=== PATIENT | male | born 1960 | race Caucasian/White ===

== ENCOUNTER 2024-07-01 10:14 | Outpatient (CLI) | payer OTHER, SELFPAY ==
--- NOTE | ~2024-07-01 | US_ITS ---
EXAMINATION: US soft tissue head and neck DATE: 07/01/2024 10:49 INDICATION: Cervical lymphadenopathy. TECHNIQUE: Multiple grayscale and Doppler ultrasound images of the head and neck were obtained. COMPARISON: None FINDINGS: There is mild left internal jugular chain lymphadenopathy. The largest and measures 13 x 13 x 11 mm. IMPRESSION: 1. Mild left internal jugular chain lymphadenopathy, which may be reactive lymphadenopathy, metastati c squamous cell carcinoma, or lymphoma. Consider neck CT with contrast and/or ultrasound-guided core needle biopsy. Reviewed, dictated and finalized at location A. DING STONECUTTER IMPRESSION: 1. Mild left internal jugular chain lymphadenopathy, which may be reactive lymp hadenopathy, metastatic squamous cell carcinoma, or lymphoma. Consider neck CT with contrast and/or ultrasound-guided core needle biopsy.
== END 2024-07-01 10:15 | disposition home or self-care (01) ==
PROVIDERS: PCP Internal Medicine; Visit Provider Internal Medicine
DX: R59.0 Localized enlarged lymph nodes (principal)
CPT/HCPCS: 76536

== ENCOUNTER 2024-07-14 10:01 | Outpatient (CLI) | payer OTHER, SELFPAY ==
--- NOTE | ~2024-07-14 | CT_ITS ---
EXAMINATION: CT soft tissue neck w con DATE: 07/14/2024 10:33 INDICATION: Cervical lymphadenopathy. TECHNIQUE: Computed tomography (CT) of the neck was performed with 75 mL Omnipaque-350 intravenous co ntrast. Automated exposure control and iterative reconstruction technique were employed. The dose-tressa gth product was 574.90 mGy-cm. COMPARISON: Ultrasound 07/03/2024 FINDINGS: There is a 2.5 x 2.7 cm mass involving the left base of tongue. There is a 10 x 11 mm left mid internal jugular chain lymph node. There is a 10 x 13 mm high left internal jugular chain lymph n ode. There is 0% stenosis of the proximal internal carotid arteries relative to normal distal artery lumen diameters. There is moderate cervical spondylosis. IMPRESSION: 1. 2.5 cm mass involving the left base of tongue, consistent with squamous cell carcinoma. 2. Mild left internal jugular chain lymphadenopathy, consistent with metastatic disease. Ultrasound-g uided core needle biopsy of a left internal jugular chain lymph node is recommended. Reviewed, dictated and finalized at location A. MILL OPERATOR IMPRESSION: 1. 2.5 cm mass involving the left base of tongue, consistent with squamous cell carcinoma. 2. Mild left internal jugular chain lymphadenopathy, consistent with metastatic disease. Ultrasound-guided core needle biopsy of a left internal jugular chain lymph node is recommended.
[2024-07-14 10:29] LABS: Estimated Glomerular Filt Rate > 60
== END 2024-07-14 10:02 | disposition home or self-care (01) ==
PROVIDERS: PCP Internal Medicine; Visit Provider Internal Medicine
DX: R59.0 Localized enlarged lymph nodes (principal); K14.8 Other diseases of tongue
CPT/HCPCS: 70491; Q9967

== ENCOUNTER 2024-11-26 13:16 | Inpatient (IN) | payer MEDICARE, SELFPAY ==
[2024-11-26] VITALS (11 sets, daily range): BP systolic 117–133; BP diastolic 64–87; PULSE 43–78; RESP 15–24; TEMP 36.7–37.6; O2SAT 100; BMI 26.5
--- NOTE | ~2024-11-26 | XR_ITS ---
XR abdomen gastric tube insert Ordering provider: Lona Robertson MD History: . tube placement verification . Comparison: None. FINDINGS/impression: Feeding tube is seen with the tip in the second part of the duodenum. Reviewed, dictated and finalized at location A.
--- NOTE | ~2024-11-26 | XR_ITS ---
EXAMINATION: XR chest 2V Exam Date/Time: 11/26/2024 15:35 CDT HISTORY: difficulty swallowing, tongue CA Comparison: None. RESULT: Lines, tubes, and devices: None. Lungs and pleura: Lordotic positioning. No focal consolidation, pleural effusion, or pneumothorax. R ight hemidiaphragm elevation. Cardiomediastinal silhouette: Stable. Other: No acute osseous or upper abdominal finding. IMPRESSION: No acute cardiopulmonary process. Reviewed, dictated and finalized at location K.
--- NOTE | ~2024-11-26 | XR_ITS ---
MODIFIED ESOPHAGRAM HISTORY: Unable to swallow TECHNIQUE: Modified barium esophagram was performed on 11/28/2024. I administered fluoroscopy and perfo rmed the exam with speech pathologist. Patient was seated for lateral fluoroscopic imaging for inges tion of thin liquids, pudding, solids and quantified amounts, followed by thin liquids in uncontrolle d amounts. This was recorded on tape. A single fluoroscopic spot image was also recorded. The DAP for this procedure was 0.868 Gycm2. The amount of fluoroscopy time used during this procedure was 1.6 mi nutes. FINDINGS: Oral stage: Adequate function. Pharyngeal stage: There is laryngeal penetration without aspiration. Which was cleared following coug h/to clearing elicited with a verbal cue. Cervical/esophageal stage: Adequate function. IMPRESSION: Laryngeal penetration without aspiration. Please correlate with speech pathologist findi ngs and specific feeding recommendations. Reviewed, dictated and finalized at location A. IMPRESSION: Laryngeal penetration without aspiration. Please correlate with sp eech pathologist findings and specific feeding recommendations.
--- NOTE | ~2024-11-26 | CT_ITS ---
EXAMINATION: CT soft tissue neck w con DATE: 11/26/2024 15:25 INDICATION: Difficulty swallowing, history of tongue cancer TECHNIQUE: Computed tomography (CT) of the neck was performed with 75 mL Omnipaque-350 intravenous co ntrast. Automated exposure control and iterative reconstruction technique were employed. The dose-tressa gth product was 551.10 mGy-cm. COMPARISON: 07/14/2024 FINDINGS: Asymmetric soft tissue density at the left base of the tongue measuring up to 2.3 cm The thyroid gla nd is unremarkable. The submandibular and parotid glands are symmetric. There is no cervical lymp hadenopathy. The superior mediastinum is unremarkable. The airway is unremarkable. Parapharyngea l and pre-glottic fat planes are preserved. The left vertebral artery terminates in a cerebellar ar kathy, normal variant. The left vertebral artery is dominant. Otherwise unremarkable neck vessels. Th e orbits are unremarkable. Visualized sinuses and mastoid air cells are well aerated. Visualized lung parenchyma is clear. There is cervical spondylosis. The patient is edentulous. IMPRESSION: 2.3 cm soft tissue density mass at the left base of the tongue, decreased in size since prior examina tion. The previously described cervical lymphadenopathy is decreased/has resolved. Reviewed, dictated and finalized at location K. IMPRESSION: 2.3 cm soft tissue density mass at the left base of the tongue, decreased in si ze since prior examination. The previously described cervical lymphadenopathy is decreased/has resolved.
[2024-11-26 14:18] LABS: Basophils Percent Auto 0.3 % (0.2-1.2); Eosinophils Percent Auto 0.6 % (0-4.4); Hematocrit 33.5 % (42.0-52.0); Hemoglobin 11.5 g/dL (14.0-18.0); Immature Granulocyte Absolute 0.01 K/mm3 (0.00-0.031); Immature Granulocyte Percent A 0.3 % (0-0.5); Lymphocytes Absolute Auto 0.45 K/mm3 (0.9-3.2); Lymphocytes Percent Auto 12.5 % (18.3-44.2); Mean Corpuscular HGB Conc 34.3 g/dl (32-36); Mean Corpuscular Volume 90.3 fl (80-100); Mean Platelet Volume 9.1 fl (7.4-10.4); Monocytes Absolute Auto 0.4 K/mm3 (0.1-0.6); Monocytes Percent Auto 11.4 % (2.6-8.5); Neutrophils Absolute Auto 2.7 K/mm3 (1.3-6.7); Neutrophils Percent Auto 74.9 % (45.5-73.1); Platelet Count Result 138 k/mm3 (150-375); Red Blood Count 3.71 M/mm3 (4.6-6.20); Red Cell Distribution Width 13.9 % (11.5-14.5); White Blood Count 3.6 K/mm3 (4.5-10.0)
[2024-11-26 14:30] LABS: Alanine Aminotransferase 28 U/L (6-50); Albumin Level 4.2 g/dL (3.5-5.1); Alkaline Phosphatase 51 U/L (38-126); Anion Gap 11 mmol/L (4-12); Aspartate Amino Transferase 26 U/L (17-59); Bilirubin,Total 0.9 mg/dL (0.2-1.3); Blood Urea Nitrogen 29 mg/dL (9-20); Calcium 8.9 mg/dL (8.4-10.2); Carbon Dioxide 27 mmol/L (22-30); Chloride 101 mmol/L (98-107); Estimated CRCL calculation 56 ml/min; Estimated Glomerular Filt Rate 60; Glucose 123 mg/dL (65-110); Lactic Acid Reflex 1.6 mmol/L (0.7-2.0); Lipase 52 U/L (23-300); Potassium 3.2 mmol/L (3.4-5.0); Sodium 139 mmol/L (137-145)
[2024-11-26] MEDS: SODIUM CHLORIDE 0.9% IV 1,000 ML 999 ML IV CONT ×2 (14:49→15:57)
[2024-11-26] MEDS: KCL 20 MEQ/SW 100 ML 100 ML 50 MEQ IVPB (14:49)
[2024-11-26 14:55] LABS: Magnesium 1.7 mg/dL (1.6-2.3)
--- NOTE | 2024-11-26 15:10 | ED.NAVMDI ---
HPI - Nausea/Vomiting/Diarrhea General Chief complaint: Nausea/Vomiting/Diarrhea <CÉSAR Gerber Last Filed: 11/26/24 22:00> Stated complaint: oncologist wants pt admitted for IV fluids <CÉSAR Gerber Last Filed: 11/26/24 22:00> Time Seen by Provider: 11/26/24 13:59 <CÉSAR Gerber Last Filed: 11/26/24 22:00> Source: patient <CÉSAR Gerber Last Filed: 11/26/24 22:00> Mode of arrival: ambulatory <CÉSAR Gerber Last Filed: 11/26/24 22:00> Limitations: no limitations <CÉSAR Gerber Last Filed: 11/26/24 22:00> History of Present Illness HPI Narrative: Patient is a 64-year-old male who presents the ED with report of difficulty swallowing. Patient reports he is currently undergoing chemotherapy and radiation treatment for tongue cancer. Sees Dr. Royal. Reports over the last 1 week, patient has been having trouble keeping down food and drink, trouble keeping down his own secretions. Has been spitting up frequently. Feeling weak and dehydrated. Reports a burning sensation with swallowing. Is on pantoprazole, but denies improvement. Was sent here for IV fluids. Denies fevers, difficulty breathing or feeling SOB, nausea, abd pain, CP. <CÉSAR Gerber Last Filed: 11/26/24 22:00> Related Data Home medications: Home Medications ?Medication ?Instructions ?Recorded ?Confirmed ?Last Taken ?Type ondansetron 8 mg disintegrating 8 mg PO Q8H PRN nausea and vomiting 10/05/24 11/21/24 11/21/24 History tablet <CÉSAR Gerber Last Filed: 11/26/24 22:00> Allergies/Adverse reactions: Allergies Allergy/AdvReac Type Severity Reaction Status Date / Time No Known Allergies Allergy Verified 11/21/24 09:19 <CÉSAR Gerber Last Filed: 11/26/24 22:00> Review of Systems Review of Systems: All systems reviewed & are unremarkable except as noted in HPI. <Kendra Ochoa PA-C - Last Filed: 11/26/24 22:00> All systems reviewed & are unremarkable except as noted in HPI and below <Kendra Ochoa PA-C - Last Filed: 11/26/24 22:00> [facility] Past Medical History Medical History: Medical History (Updated 11/27/24 @ 15:29 by Lona Robertson MD) Oral mucositis Thrush, oral Malnutrition Odynophagia <Kendra Ochoa PA-C - Last Filed: 11/26/24 22:00> Surgical History Surgical History: Surgical History History of appendectomy <Kendra Ochoa PA-C - Last Filed: 11/26/24 22:00> Family History Family History: Family History Father Colon cancer Father Malignant neoplasm of prostate Father Hypertension <Kendra Ochoa PA-C - Last Filed: 11/26/24 22:00> Social History Social History: Social History Smoking status: Never smoker Second hand tobacco smoke exposure: No Alcohol intake: former Drinks per week: 4 Substance use: never Do You Feel Safe in your Home?: Yes Lack of Transportation: No Lack of Food: Never True Current Housing: I Have Housing Concerned About Future Housing: No Difficulty Paying Gas/Electric Bills: No Difficulty Paying for Meds: No Currently Unemployed: No Education: High School Diploma/GED Difficulty w/ Childcare or Family Care: No Spiritual care concerns: No <Kendra Ochoa PA-C - Last Filed: 11/26/24 22:00> Exam Narrative: GENERAL: Well appearing, thin, non-toxic, in no acute distress. HEAD: Normocephalic, atraumatic. ENT: Frequently spitting into emesis bag, dry MMs. There is mild posterior pharynx erythema with scant yellowish/white material surrounding oropharynx/soft palate. No tonsillar hypertrophy or exudate. Uvula midline and nonedematous. RESPIRATORY: Airway patent, respirations nonlabored. Clear to auscultation bilaterally, no rales, rhonchi, wheezing. No stridor. CARDIOVASCULAR: Regular rate and rhythm ABDOMINAL: Soft, nontender, nondistended. Normoactive BS. MUSCULOSKELETAL: Moves all extremities. No gross deformities. SKIN: Warm, dry, normal color. NEURO: A&O X3. Speech clear. Cranial nerves II-XII grossly intact. Steady gait. No ataxic movements. PSYCHIATRIC: Appropriate mood and affect. Normal interaction. <Kendra Ochoa PA-C - Last Filed: 11/26/24 22:00> Course FIELD SERVICE SUPERVISOR/PA Physician Supervision For this patient encounter, I reviewed the FIELD SERVICE SUPERVISOR or PA documentation, treatment plan, and medical decision making; and I had [id number] time with this patient. <Wyatt Antunez MD - Last Filed: 11/27/24 19:04> Vital Signs Vital signs: Vital Signs Temperature 98.1 F 11/26/24 13:23 Pulse Rate 78 11/26/24 13:23 Respiratory Rate 16 11/26/24 13:23 Blood Pressure 117/87 11/26/24 13:23 Pulse Oximetry 100 11/26/24 13:23 Temperature 97.2 F L 11/27/24 14:29 Pulse Rate 59 L 11/27/24 16:00 Respiratory Rate 16 11/27/24 14:29 Blood Pressure 121/73 11/27/24 14:29 Pulse Oximetry 99 11/27/24 14:29 Oxygen Delivery Room Air 11/27/24 08:00 <Kendra Ochoa PA-C - Last Filed: 11/26/24 22:00> Vital Signs Temperature 98.1 F 11/26/24 13:23 Pulse Rate 78 11/26/24 13:23 Respiratory Rate 16 11/26/24 13:23 Blood Pressure 117/87 11/26/24 13:23 Pulse Oximetry 100 11/26/24 13:23 Temperature 97.2 F L 11/27/24 14:29 Pulse Rate 59 L 11/27/24 16:00 Respiratory Rate 16 11/27/24 14:29 Blood Pressure 121/73 11/27/24 14:29 Pulse Oximetry 99 11/27/24 14:29 Oxygen Delivery Room Air 11/27/24 08:00 <Wyatt Antunez MD - Last Filed: 11/27/24 19:04> MDM - Nausea/Vomiting/Diarrhea MDM Narrative Medical decision making narrative: Patient presented to ED with difficulty swallowing, difficulty keeping down food and drink. History of tongue cancer on chemotherapy and radiation. Vital signs are stable upon arrival. Patient in no acute distress. No evidence of airway compromise or respiratory distress. Denying shortness of breath. Exam suspicious for oral for GI ill rash. Patient given nystatin physician follow-up, Pepcid. CBC with mild leukopenia at 3.6. Appears consistent with previous records. H&H is stable. Platelets stable. CMP with potassium of 3.2. IV replacement given. Mag within normal range. Slight LUIS. Creatinine today 1.22. Baseline around 0.9. Patient given fluids. Lactic acid within normal range at 1.6. Normal LFTs and lipase. UA consistent with dehydration. CT soft tissue neck sewing decreased size of tongue mass no signs of airway involvement. Chest x-ray is clear. No evidence of aspiration at this time. Patient given 2 L of fluid in the ED, feeling improved, but still having difficulty keeping down food and drink/secretions. Patient will be admitted for further evaluation. Discussed case with Dr. Call GI, will consult for possible scope. Discussed case with Brandy Montgomery FIELD SERVICE SUPERVISOR Hospitalist, accepted patient for admission. Patient and family in agreement with plan and need for admission. <Kendra Ochoa PA-C - Last Filed: 11/26/24 22:00> Medical Records Attestation: I reviewed the patient's medical records. <Kendra Ochoa PA-C - Last Filed: 11/26/24 22:00> Lab Data Attestation: I reviewed the patient's lab results. <Kendra Ochoa PA-C - Last Filed: 11/26/24 22:00> Result diagrams: 11/26/24 14:11 11/26/24 14:11 <Kendra Ochoa PA-C - Last Filed: 11/26/24 22:00> Labs: Lab Results 11/26/24 11/26/24 11/26/24 Range/Units 14:09 14:11 16:23 WBC 3.6 L (4.5-10.0) K/mm3 RBC 3.71 L (4.6-6.20) M/mm3 Hgb 11.5 L (14.0-18.0) g/dL Hct 33.5 L (42.0-52.0) % MCV 90.3 (80-100) fl MCH 31.0 (26-34) pg MCHC 34.3 (32-36) g/dl RDW 13.9 (11.5-14.5) % Plt Count 138 L (150-375) k/mm3 MPV 9.1 (7.4-10.4) fl Immature Gran % (Auto) 0.3 (0-0.5) % Neut % (Auto) 74.9 H (45.5-73.1) % Lymph % (Auto) 12.5 L (18.3-44.2) % Irwin % (Auto) 11.4 H (2.6-8.5) % Eos % (Auto) 0.6 (0-4.4) % Baso % (Auto) 0.3 (0.2-1.2) % Lymph # (Auto) 0.45 L (0.9-3.2) K/mm3 [place]win # (Auto) 0.4 (0.1-0.6) K/mm3 Eos # (Auto) 0.0 (0-0.3) K/mm3 Baso # (Auto) 0.0 (0.0-0.1) K/mm3 Abs Immat Gran (auto) 0.01 (0.00-0.031) K/mm3 Absolute Neuts (auto) 2.7 (1.3-6.7) K/mm3 Absolute Nucleated RBC 0.000 (0.0-0.012) K/mm3 Nucleated RBC % 0.0 (0.0-0.2) % Sodium 139 (137-145) mmol/L Potassium 3.2 L (3.4-5.0) mmol/L Chloride 101 (98-107) mmol/L Carbon Dioxide 27 (22-30) mmol/L Anion Gap 11 (4-12) mmol/L BUN 29 H D (9-20) mg/dL Creatinine 1.22 (0.7-1.3) mg/dL Estim Creat Clear Calc 56 ml/min Estimated GFR 60 (59 - ) Glucose 123 H (65-110) mg/dL Lactic Acid 1.6 (0.7-2.0) mmol/L Calcium 8.9 (8.4-10.2) mg/dL Magnesium 1.7 (1.6-2.3) mg/dL Total Bilirubin 0.9 (0.2-1.3) mg/dL AST 26 (17-59) U/L ALT 28 (6-50) U/L Alkaline Phosphatase 51 (38-126) U/L Total Protein 7.0 (6.3-8.2) g/dL Albumin 4.2 (3.5-5.1) g/dL Lipase 52 (23-300) U/L Urine Color Yellow (Yellow) Urine Appearance Clear (Clear) Urine pH 7.5 (5.0-9.0) Ur Specific [place] > 1.045 H (1.001-1.035) Urine Protein 2+ H (Negative) mg/dL Urine Glucose (UA) Negative (Negative) mg/dL Urine Ketones 1+ H (Negative) mg/dL Ur Blood (Man) Negative (Negative) Urine Nitrate Negative (Negative) Urine Bilirubin Negative (Negative) Urine Urobilinogen 1.0 (<2.0) mg/dL Leukocyte Esterase Rfl Negative (Negative) SATNAM/UL Urine RBC 0-2 (0-2) /hpf Urine WBC 0-5 (0-3) /hpf Ur Squamous Epith Cells None seen (Few) /hpf Urine Bacteria None seen /hpf Urine Casts 0-2 <Kendra Ochoa PA-C - Last Filed: 11/26/24 22:00> Lab Results 11/26/24 11/26/24 11/26/24 Range/Units 14:09 14:11 16:23 WBC 3.6 L (4.5-10.0) K/mm3 RBC 3.71 L (4.6-6.20) M/mm3 Hgb 11.5 L (14.0-18.0) g/dL Hct 33.5 L (42.0-52.0) % MCV 90.3 (80-100) fl MCH 31.0 (26-34) pg MCHC 34.3 (32-36) g/dl RDW 13.9 (11.5-14.5) % Plt Count 138 L (150-375) k/mm3 MPV 9.1 (7.4-10.4) fl Immature Gran % (Auto) 0.3 (0-0.5) % Neut % (Auto) 74.9 H (45.5-73.1) % Lymph % (Auto) 12.5 L (18.3-44.2) % Irwin % (Auto) 11.4 H (2.6-8.5) % Eos % (Auto) 0.6 (0-4.4) % Baso % (Auto) 0.3 (0.2-1.2) % Lymph # (Auto) 0.45 L (0.9-3.2) K/mm3 [place]win # (Auto) 0.4 (0.1-0.6) K/mm3 Eos # (Auto) 0.0 (0-0.3) K/mm3 Baso # (Auto) 0.0 (0.0-0.1) K/mm3 Abs Immat Gran (auto) 0.01 (0.00-0.031) K/mm3 Absolute Neuts (auto) 2.7 (1.3-6.7) K/mm3 Absolute Nucleated RBC 0.000 (0.0-0.012) K/mm3 Nucleated RBC % 0.0 (0.0-0.2) % Sodium 139 (137-145) mmol/L Potassium 3.2 L (3.4-5.0) mmol/L Chloride 101 (98-107) mmol/L Carbon Dioxide 27 (22-30) mmol/L Anion Gap 11 (4-12) mmol/L BUN 29 H D (9-20) mg/dL Creatinine 1.22 (0.7-1.3) mg/dL Estim Creat Clear Calc 56 ml/min Estimated GFR 60 (59 - ) Glucose 123 H (65-110) mg/dL Lactic Acid 1.6 (0.7-2.0) mmol/L Calcium 8.9 (8.4-10.2) mg/dL Magnesium 1.7 (1.6-2.3) mg/dL Total Bilirubin 0.9 (0.2-1.3) mg/dL AST 26 (17-59) U/L ALT 28 (6-50) U/L Alkaline Phosphatase 51 (38-126) U/L Total Protein 7.0 (6.3-8.2) g/dL Albumin 4.2 (3.5-5.1) g/dL Lipase 52 (23-300) U/L Urine Color Yellow (Yellow) Urine Appearance Clear (Clear) Urine pH 7.5 (5.0-9.0) Ur Specific [place] > 1.045 H (1.001-1.035) Urine Protein 2+ H (Negative) mg/dL Urine Glucose (UA) Negative (Negative) mg/dL Urine Ketones 1+ H (Negative) mg/dL Ur Blood (Man) Negative (Negative) Urine Nitrate Negative (Negative) Urine Bilirubin Negative (Negative) Urine Urobilinogen 1.0 (<2.0) mg/dL Leukocyte Esterase Rfl Negative (Negative) SATNAM/UL Urine RBC 0-2 (0-2) /hpf Urine WBC 0-5 (0-3) /hpf Ur Squamous Epith Cells None seen (Few) /hpf Urine Bacteria None seen /hpf Urine Casts 0-2 <Wyatt Antunez MD - Last Filed: 11/27/24 19:04> Imaging Data Attestation: I personally reviewed and interpreted this imaging study as follows: <Kendra Ochoa PA-C - Last Filed: 11/26/24 22:00> Radiologist's impression: ITS Impressions Soft Tissue Neck CT 11/26/24 15:42 IMPRESSION: 2.3 cm soft tissue density mass at the left base of the tongue, decreased in size since prior examination. The previously described cervical lymphadenopathy is decreased/has resolved. Chest X-Ray 11/26/24 15:58 IMPRESSION: No acute cardiopulmonary process. <Kendra Ochoa PA-C - Last Filed: 11/26/24 22:00> Discharge Plan Discharge Clinical Impression: Tongue malignant neoplasm, Dehydration, Esophageal thrush Difficulty swallowing Qualifiers: Dysphagia type: unspecified Qualified Code(s): R13.10 - Dysphagia, unspecified <Kendra Ochoa PA-C - Last Filed: 11/26/24 22:00> Patient Disposition: Still a Patient <Kendra Ochoa PA-C - Last Filed: 11/26/24 22:00> Condition: Stable <Kendra Ochoa PA-C - Last Filed: 11/26/24 22:00>
[2024-11-26] MEDS: FAMOTIDINE 20 MG/2 ML VIAL IV PUSH ×2 (15:59→20:46)
[2024-11-26] MEDS: NYSTATIN 100,000 UNITS/ML SUSP 5 ML ORAL.SUSP PO ×2 (16:08→20:46)
[2024-11-26 16:34] LABS: Add Urine Microscopic? YES; Appearance Urine Clear (Clear); Bacteria Urine None Seen /hpf; Bilirubin Urine Negative (Negative); Blood Urine Negative (Negative); Color Urine Yellow (Yellow); Glucose Urine UA Negative (Negative); Ketones Urine 1+ mg/dL (Negative); Leukocyte Esterase Ur Negative LEU/UL (Negative); Nitrate Urine Negative (Negative); Non Pathogenic Casts 0-2; Protein Urine 2+ mg/dL (Negative); RBC Urine 0-2 /hpf (0-2); Specific Grav Ur > 1.045 (1.001-1.035); Squamous Epithelial Cell Urine None Seen /hpf (Few); WBC Urine 0-5 /hpf (0-3); pH Urine 7.5 (5.0-9.0)
--- OUTSIDE RECORDS SUMMARY | 2024-11-26 16:34 | XMS_ITS | Encounter Summary ---
Author Organization [facility] Address [address] [place] [address] Care Team Providers Care Wheel Polisher Name Role Phone Gogo Ivey MD Primary Care Provider Encounter Details Date Type Department Care Team (Late Contact Info) Description 11/22/2024 Orders Only [facility] Oncology and Hematology - Mervin Tasha [address] [place] [address] Flex Royal MD [address] [place] [address] [facility] [address] [place] [id number] Social History Tobacco Use Types Packs/Day Years Used Date Smoking Tobacco: Never Smokeless Tobacco: Never Alcohol Use Standard Drinks/Week Comments Yes 0 (1 standard drink = 0.6 oz pur e alcohol) Occasionally Sex and Gender Information Value Date Recorded Sex Assigned at Not on file Legal Sex Male 9:35 AM INSURANCE OPERATIONS REP Gender Identity Not on file Sexual Orientation Not on file documented as of this encounter Plan of Treatment Upcoming Encounters Date Type Department Care Team (Late st Contact Info) Description 11/28/2024 Orders Only [facility] Oncology and Hematology - Mervin Kenney [address] [place] [address] [place] [address] [place] [address] [facility] [address] [place] [address] Tongue cancer (CMS/HCC) 01/12/2025 10:00 AM CDT Office Visit [facility] Oncology and Hematology - Mervin Kenney [address] [place] [address] Flex Royal MD [address] [facility] [address] [place] [address] documented as of this encounter Procedures Procedure Name Priority Date/Time Associated Diagnosis Comments CBC MIXED CELL DIFFERENTIAL Routine 11/21/2024 11:17 AM CDT documented in this encounter Results * CBC MIXED CELL DIFFERENTIAL (11/21/2024 11:17 AM CDT) Blood us Flex Royal MD HEMATOLOGY ORDERABLES Final Res ult documented in this encounter Visit Diagnoses Not on filedocumented in this encounter Care Teams Wheel Polisher Relationship Specialty Start Date End Date Gogo Ivey MD [address] [place] [id number] PCP - General Internal Medicine 08/24/24 documented as of this encounter
--- OUTSIDE RECORDS SUMMARY | 2024-11-26 16:34 | XMS_ITS | CONTINUITY OF CARE DOCUMENT ---
Author Name bettina dunbar Address Unknown Organization [facility] Address [address] [facility] [address] [place] [address] Phone [phone] Care Team Providers Care Hand Suture Winder Name Role Phone Pankaj Bravo MD Unavailable PHYLLIS HILLMAN MD Unavailable [phone] PHYLLIS HILLMAN MD Unavailable [phone] INSURANCE PROVIDERS Payer name Policy type / Coverage type [place] red democrat ID [facility] [employer] insurance [place] 8 [id number]
--- OUTSIDE RECORDS SUMMARY | 2024-11-26 16:34 | XMS_ITS | Data Portability ---
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 Name Role Phone GOGO IVEY Primary Care Provider Assessment Encounter Date Assessment Date Assessment LastModified by Organization Details LastModified Time 06/28/2024 06/28/2024 06/29/2024: VIT D 16 PSA 0.73 Gluc 102, TP 5.6, Glob 1.7 LDL 112 Not available 07/15/2024 18:40:24 11/02/2024 11/02/2024 06/29/2024: VIT D 16 PSA 0.73 Gluc 102, TP 5.6, Glob 1.7 LDL 112 Not available 11/02/2024 11:34:04 Plan of Treatment Reminders Order Date Submit Date Provider Last Modified By Organization Details Last Modified Time Details Appointments Follow Up 15 2024 10:15A Ferny garcias MD Not available Not available Not available Lab lipid panel, serum [email or web address] [place] [address] (Lab), [address] [place], [address], 11/10/2024 09:10:55 CBC w/ auto diff [email or web address] (Lab), [address] [place], [address], 11/10/2024 09:11:07 CMP, serum or plasma [email or web address] (Lab), [address] [place], [address], 11/10/2024 09:11:24 TSH, serum or plasma [address] (Lab), [address] [place], [address], 11/10/2024 09:11:35 PSA, total, serum or plasma [address] (Lab), [address] [place], [address], 11/10/2024 09:11:53 vitamin D, 25-hydrox y, total, serum [address] (Lab), [address] [place], [address], 11/10/2024 09:11:43 PSA, total, serum or plasma 2023 024 [facility] (Lab), [address] [place], [address], 06/30/2024 11:31:50 lipid panel, serum 2023 024 [facility] (Lab), [address] [place], [address], 06/30/2024 11:31:49 CBC w/ auto diff 2023 024 [facility] (Lab), [address] [place], [address], 06/30/2024 11:31:50 CMP, serum or plasma 2023 024 [facility] (Lab), [address] [place], [address], 06/30/2024 11:31:49 TSH, serum or plasma 2023 024 [facility] (Lab), [address] [place], [address], 06/30/2024 11:31:50 vitamin D, 25-hydrox y, total, serum 2023 024 [facility] (Lab), [address] [place], [address], 06/30/2024 11:31:51 Referral dermatolo gist referral - Please call patient to schedule an appointme nt. Thank you. 2024 025 [facility], [address] [place], [address], 11/07/2024 09:40:25 otolaryng ologist referral - Please call patient to schedule. 2023 024 ELIZABETH Kay MD, [address], [place], [address], 07/18/2024 16:45:21 oncologis t referral - Please call patient to schedule. 2023 025 JONA Royal MD, [address], [place], [address], 08/24/2024 18:36:02 dermatolo gist referral - Please call patient to schedule. 2023 024 [facility], [address] [place], [address], 08/18/2024 12:15:00 Procedures colonosco py screening (PROC) - Please call patient to schedule an appointme nt. Thank you. 2024 025 ELIZABETH Walsh MD, [address], [address], [place], [address], 11/09/2024 09:25:15 colonosco py screening (PROC) - Please call patient to schedule. 2023 024 [email or web address] Yohannes Walsh MD, [address] [facility] [address], [place], [address], 08/18/2024 12:04:24 Surgeries None recorded. Imaging US, neck, soft tissue - Please call patient to schedule. 2023 024 [facility], [address], [place], [address], 07/01/2024 18:27:28 Medication Orders pantopraz ole 40 mg tablet,de layed release 2024 025 [email or web address] [facility], [address] [place], [address], 11/02/2024 12:58:42 Patient TargetsNo targets recorded. Patient Instructions Encounter Date Encounter Id Patient Instructions Last Modified By Organization Details Last Modified Time 08/04/2024 [id number] to get things going he will undergo laryngoscopy and biopsy with a PET scan at [facility]. 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 Referring Physician: Gogo Ivey Internal Medicine, Encounter Date: 06/28/2024 [employer] Referral fo r Mass of tongue Please call patient to schedule. Referring Physician: Gogo Ivey Internal Medicine, Encounter Date: 06/28/2024 Please call patient to sched ule. Referring Physician: Gogo Ievy Internal Medicine, Encounter Date: 06/28/2024 Environmental Field Services Technician Referral for S kin lesion Please call patient to schedule an appointment. Thank you. Referring Physician: Gogo Ivey Internal Medicine, Encounter Date: 11/02/2024 Results Created Date Observation Date Name Description Value Unit Range Abnormal Flag Note LastModifiedBy Organization Detail LastModifiedTime 08/15/19 25 08/19/2024 PATHO LOGY SERVI CE pathserv SEE COMMEN T See separ ate patho logy repor t. Not Available [facility] [address], [place], [address], 08/19/2024 12:30:09 07/01/20 24 07/01/2024 US, neck, soft tissu e No observ ation record ed. [address], [place], [address], 07/01/2024 18:27:28 07/14/20 24 07/14/2024 CT, neck, soft tissu e, w/ contr ast No observ ation record ed. [address], [place], [address], 07/14/2024 17:31:46 08/29/19 25 08/29/2024 PET-C T, whole body scan No observ ation record ed. [email or web address] [facility] [address] [place] [address], [address], 08/29/2024 16:28:37 09/09/19 25 09/09/2024 PET-C T, whole body scan No observ ation record ed. [facility] Nuclear Medicine [facility] [address] [place], [address], 09/09/2024 11:57:46 Result Notes None recorded. Problems Name Problem SNOMED Code Status Onset Date Resolution Date Notes Provider Name and Address Organization Details Recorded Time Vitamin D deficiency 77969892 Active 2023 Gogo garcias MD [address], [address], [place], [address], [facility] [employer] 14:13:49 Cervical lymphadenopath y 092056264 Active 2023 Gogo garcias MD [address], [address], [place], [address], [facility] 4 15:22:38 Hyperlipidemia 74816654 Active 2023 Jayleen BautistaJOSE F null, [facility] 4 12:36:51 Neck pain 79574821 Active 2023 Jayleen Bautista CMA null, [facility] 4 16:00:17 Mass of tongue 761849195 Active 2023 Gogo garcias MD [address], [address], [place], [address], [facility] 4 18:35:52 Skin lesion 41351064 Active 2023 Gogo garcias MD [address], [address], [place], [address], 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 Procedures Surgical History Date Name Laterality Status Provider Name and Address Organization Details Recorded Time Appendectomy completed JERE Oh [facility] 06/28/2024 14:34:54 Laryngoscopy with biopsy completed Kendra Lackey RN [facility] 08/22/2024 08:49:39 Imaging Results Imaging Date Name Status LastModified by [facility] Details LastModified Time 07/01/2024 US, neck, soft tissue active [facility] [address], [place], [address], 07/01/2024 18:27:28 07/14/2024 CT, neck, soft tissue, w/ contrast active [facility] [address], [place], [address], 07/14/2024 17:31:46 08/29/2024 PET-CT, whole body scan completed [email or web address] [facility] [address] [place], [address], 08/29/2024 16:28:37 09/09/2024 PET-CT, whole body scan completed [facility] Nuclear Medicine [facility] [address] [place], [address], 09/09/2024 11:57:46 Procedure Notes None recorded. Medical Equipment None Reported. Allergies No known drug allergies Medications Name Sig Start Date Stop Date Status Note LastModified by Organization Details LastModified Time hydrocodo ne 5 mg-acetam inophen 325 mg tablet TAKE 1 TABLET BY MOUTH EVERY 4 HOURS NEEDED FOR MODERATE PAIN. MAX DAILY AMOUNT: 6 TABLETS active Not Available Not Available No t Available acetamino phen 300 mg-codein e 30 mg tablet TAKE 1 TAB BY MOUTH EVERY 6 HOURS. NO DRIVING ON THIS MED. NOT W/ADDITI ONAL TYLENOL. IBUPROFE N OKAY. active Not Available Not Available No t Available ondansetr on 8 mg disintegr ating tablet DISSOLVE 1 TABLET ON TOP OF TONGUE THEN SWALLOW EVERY 8 HOURS NEEDED FOR NAUSEA OR VOMITING active Not Available Not Available No t Available pantopraz ole 40 mg tablet,de layed release TAKE 1 TABLET BY MOUTH EVERY DAY NEEDED FOR 90 DAYS active Not Available Not Available No t Available lidocaine HCl 2 % mucosal solution 5 ML BY MOUTH/TH ROAT ROUTE EVERY 4 HOURS NEEDED FOR PAIN. active Not Available Not Available No t Available rosuvasta tin 40 mg tablet TAKE 1 TABLET BY MOUTH EVERY DAY 11/02 completed not taking right now due to treatmen t Not Available Not Available Not Available cholecalc iferol (vitamin D3) 1,250 mcg (50,000 unit) capsule TAKE 1 CAPSULE BY MOUTH ONE TIME PER WEEK 11/02 completed Not Available Not Available Not Available Vitals Date Recorded Body weight Body mass index (BMI) Body height Body temperature Heart rate Systolic blood pressure Diastolic blood pressure Provider Name and Address Organization Details Last Updated DateTime 83464.2 1 g 29.8 kg/m2 177.8 cm 98.1 [degF] 78 /min 110 mm[Hg] 70 mm[Hg] JERE Oh [facility] [employer] 4 14:37:02 Date Recorded Body height Body mass index (BMI) Body weight Body temperature Provider Name and Address Organization Details Last Updated DateTime 08/04/2024 177.8 cm 29.8 kg/m2 75122.78 g 97.6 [degF] Kendra Lackey RN [facility] [employer] [facility] 08/04/2024 14:07:39 Date Recorded Body height Body mass index (BMI) Body weight Body temperature Provider Name and Address Organization Details Last Updated DateTime 08/22/2024 177.8 cm 29.4 kg/m2 17512.44 g 97.9 [degF] Kendra Lackey RN [facility] [employer] [facility] 08/22/2024 10:43:07 Date Recorded Body height Body mass index (BMI) Body weight Body temperature Heart rate Systolic blood pressure Diastolic blood pressure Provider Name and Address Organization Details Last Updated DateTime 177.8 cm 28 kg/m2 09569.5 1 g 97.1 [degF] 72 /min 114 mm[Hg] 80 mm[Hg] JERE Oh [facility] [employer] [facility] 11:21:47 Social History Question Answer Notes LastModified by Organizat ion Details LastModified Time Tobacco Smoking Status [facility] [employer] [facility] 06/28/2024 14:33:04 Do You Have An Advance Directive? No Information n ot available 06/28/2024 What Is Your Level Of Alcohol Consumption? Occasional Information not available 06/28/2024 What Is Your Level Of Caffeine Consumption? Heavy Information not available 06/28/2024 In The 14 Days Before Symptom Onset, Have You Had Close Contact With A Laboratory-confirm ed COVID-19 While That Case Was Ill? No Information n ot available 06/28/2024 In The 14 Days Before Symptom Onset, Have You Had Close Contact With A Person Who Is Under Investigation For COVID-19 While That Person Was Ill? No Information not available 06/28/2024 Are You Currently Employed? Yes Information not available 06/28/2024 What Type Of Diet Are You Following? REGULAR Information n ot available 06/28/2024 What Is The Highest Grade Or Level Of School You Have Completed Or The Highest Degree You Have Received? 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 Unknown Information not available 06/28/2024 Are There Any Guns Present In Your Home? Yes Information not available 06/28/2024 Where Do You Live? [place]iler Inform ation not available 06/28/2024 Do You Have A Medical Power Of Senior Credit Analyst? No Information not available 06/28/2024 What Was The Date Of Your Most Recent Tobacco Screening? 11/02/2024 Information not available 11/02/2024 Do You Have Any Pets? Yes Information not available 06/28/2024 What Is Your Relationship Status? Information not available 06/28/2024 Do You Use Your Seat Belt Or Car Seat Routinely? Yes Information not available 06/28/2024 Do You Have Smoke And Carbon Monoxide Detectors In Your Home? Yes Information not available 06/28/2024 Are You Passively Exposed To Smoke? No Information no t available 06/28/2024 Are There Any Smokers In Your House? No Information not available 06/28/2024 Do You Feel Stressed (tense, Restless, Nervous, Or Anxious, Or Unable To Sleep At Night)? [id number] Information not available 06/28/2024 Do You Use Any Illicit Or Recreational Drugs? No Information not available 06/28/2024 Has Tobacco Cessation Counseling Been Provided? No N/a Information not available 06/28/2024 Have You Recently Traveled Abroad? No Information not available 06/28/2024 Do You Or Have You Ever Used Any Other Forms Of Tobacco Or Nicotine? No Information not available 06/28/2024 Sex: Unknown Functional Status Question Answer Note LastModified by Organizat ion Details LastModified Time What is your exercise level? Occasional stays active Information not available 06/28/2024 Mental Status None recorded. Family History Relationship Description Onset Age of this Age Resolved Age Notes LastModified by Organization Details LastModified Time Father Malignant tumor of colon with METS to prosta te Not available 06/28/2024 14:30:57 Paternal Grandfather Myocardial infarction Not available 06/28 14:31:14 Paternal Grandmother Myocardial infarction Not available 06/28 14:31:14 Notes:NO ENT Medical History Condition Response CANCER: SPECIFY Y CHEMOTHERAPY / RADIATION Y Immunizations Vaccine Type Date Status Note Provider Nam e and Address Organization Details Recorded Time zoster recombinant 07/17/2024 completed JERE Oh, [employer] 07/28/2024 16:07:28 zoster recombinant 09/20/2024 JERE Everett, [employer] 11/02/2024 11:18:36 Influenza, split virus, trivalent, PF 06/28/2024 completed Gogo Ivey MD [address], [address], [place], [address], [facility] [employer] 07/15/2024 18:38:30 Past Encounters Encounter ID Performer Location Encounter Start Date Encounter Closed Date Diagnosis/Indication Diagnosis SNOMED-CT Code Diagnosis ICD10 Code Diagnosis Note [id number] Gogo forte MD [facility] Internal Med [address] [place] [address] 06/28/2024 14:03:05 06/28/2024 15:30:34 Screening - NAD 376792467 Z13.9 C-scope; Get this if not done Get yearly flu shot, get tdap if not doneCan do Shingrix vaccineCan do COVID 19 boostersCa n do RSV vaccine RTC in 3 months, do labs, ER if worse, he did verbalize his understand ing of the above Screening for malignant neoplasm of colon 951182709 Z12.11 Hyperlipid emia screening 354970191 Z13.220 Addendum 07/15/2024 :Get on statin, case sent Vitamin D deficiency 347 94978 E55.9 Addendum 07/15/2024 :Get on vit d weekly and repeat the vit d, case sent Screening for malignant neoplasm of prostate 411439266 Z12.5 Skin lesion 29568615 L98 .9 Cervical lymphadenopathy 032508883 R59.0 Addendum: 07/15/2024 :US neck 07/01/2024 CT neck 07/14/2024 : Mass notedCase sent, needs to see oncologist IMANI Administra tion of influenza vaccine 47018287 Z23 Mass of tongue 156907491 R22.0 Addendum: 07/15/2024 :See CT neck 07/14/2024 , needs to see ENT and oncology [id number] Kyle Kay MD [facility] ENT [place] [address] [place] [address] 08/04/2024 13:50:33 08/09/2024 13:55:37 Primary malignant neoplasm of base of tongue 98513792 C01 [id number] Kyle Kay MD [facility] E[facility] [place] [address] [place] [address] 08/22/2024 10:06:08 08/23/2024 10:53:37 Primary malignant neoplasm of base of tongue 31576092 C01 [id number] Gogo forte MD [facility] Primary Care Nancy cai [address] [facility] [address] [address] [place] [address] 11/02/2024 11:06:55 11/02/2024 12:16:40 Screening - NAD 496975583 Z13.9 C-scope; Get this if not done Get yearly flu shot, get tdap if not doneCan do Shingrix vaccineCan do COVID 19 boostersCa n do RSV vaccine RTC in 3 months, do labs, ER if worse, he did verbalize his understand ing of the above Screening for malignant neoplasm of colon 573058773 Z12.11 Hyperlipid emia screening 964778343 Z13.220 Addendum 07/15/2024 :Get on statin, case sent, but today 11/02/2024 not taking Vitamin D deficiency 347 29088 E55.9 Addendum 07/15/2024 :Get on vit d weekly and repeat the vit d, case sent Screening for malignant neoplasm of prostate 559100242 Z12.5 Skin lesion 78358868 L98 .9 Mass of tongue 121986408 R22.[address] neck 07/14/2024 , needs to see ENT and oncology 08/19/2024 : Bx Invasive squamous cell carcinoma Dr Mike ET CT 09/09/2024 Dr Royal 09/09/2024 , to get chemoradia tionDr Genny 10/27/2024 Gastroesop hageal reflux disease without esophagitis 902970075 K21.9 Has noted acid reflux symptoms since starting his chemo and radiationS tart on pantoprazo le as needed Health Concerns Section Related Observation LastModified by Organization Detai ls LastModified Time None Recorded Concern Status LastModified by Organization Details LastModified Time None Recorded Advance Directives Directive N: Payers Encounter Date Sequence Insurance Name Policy Number Policy Sinclair Covered Member ID Sinclair Member ID Guarantor Name 06/28/2024 1 [employer] [id number] Marco Green [id number] Marco Green 08/04/2024 1 [employer] [id number] Marco Green [id number] Marco Green 08/22/2024 1 [employer] [id number] Marco Green [id number] Marco Green 11/02/2024 1 [employer] [id number] Marco Green [id number] Marco Green Notes Date Note Type Note Provider Name and Address Organization Details Recorded Time 06/28/2024 text/html OV 06/28/2024:He re to establish care Present Hx:C/o lymph nodes in neck, and to get labs MD Mel Edwards [address], [place], [address], [facility] 07/15/2024 18:54:50 08/04/2024 text/html this patient developed left neck pain for months ago which now radiates to his throat and ear. He is a never smoker and has no family history of cancer. He did have an ultrasound which demonstrated lymphadenopathy followed by a CT scan which demonstrated a 2.5 cm left tongue base lesion with adenopathy. Kyle Kay MD [address], [place], [address], [employer] 08/04/2024 14:42:32 08/22/2024 text/html The pathology report indicated invasive squamous cell carcinoma as expected. We will schedule his PET-CT through [facility] and he has an appointment to see a medical oncologist at [facility] this week. Kyle Kay MD [address], [place], [address], [facility] 08/22/2024 11:00:42 11/02/2024 text/html OV 06/28/2024:He re to establish care Present Hx:C/o lymph nodes in neck, and to get labs OV 11/02/2024: Here for his f/u apt, he did do the labs, here with his , wants to discuss his GERD like symptoms and get a medication for this Gogo Ivey MD [address], [place], [address], [employer] [facility] 11/02/2024 13:02:37
--- OUTSIDE RECORDS SUMMARY | 2024-11-26 16:34 | XMS_ITS | Clinical Summary ---
Author Organization [facility] Address [address] [place] [address] Care Team Providers Care Bait Digger Name Role Phone Kiana Ivey MD Primary Care Provide r Allergies No known active allergies Encounters Date Type Department Care Team Description 08/29/2024 6:37 AM DIETARY WORKER - 08/29/2024 11:59 PM DIETARY WORKER Hospital Encounter [facility]) [address] [place] [address] Discharge Disposition: Discharge to home or self care 08/29/2024 6:37 AM DIETARY WORKER - 08/29/2024 11:59 PM DIETARY WORKER Hospital Encounter [facility] ([facility]) [address] [place] [address] Cancer of base of tongue (HCC) Discharge Disposition: Discharge to home or self care from Last 3 Months Social History Tobacco Use Types Packs/Day Years Used Date Smoking Tobacco: Never Assessed Sex and Gender Information Value Date Recorded Sex Assigned at Not on file Legal Sex Male 10:15 AM DIETARY WORKER Gender Identity Not on file Sexual Orientation Not on file Last Filed Vital Signs Vital Sign Reading Time Taken Comments Blood Pressure - - Pulse - - Temperature - - Respiratory Rate - - Oxygen Saturation - - Inhaled Oxygen Concentration - - Weight 93.7 kg (206 lb 9.6 oz) 08/29/2024 7:22 A M DIETARY WORKER Height 177.8 cm (5' 10 ) 08/29/2024 7:22 AM DIETARY WORKER Body Mass Index 29.64 08/29/2024 7:22 AM DIETARY WORKER Plan of Treatment Health Maintenance Due Date Last Done Comments Colon Cancer Screening-Colonoscopy 1960 Depression Screening 1960 Hepatitis C Screening 1960 Prostate Cancer Screening-PSA 1959 DTaP/Tdap/Td Vaccine (1 - Tdap) 11/04/1970 Hepatitis B Screening 11/04/1977 Regular Well Visit/Exam 18-64 11/04/1977 Zoster Vaccine (2 of 2) 09/11/2024 07/17/2024 Influenza Vaccine Completed 06/28/2024 Pneumococcal vaccine <65 Aged Out No longer eligible based on patient's age to complete this topic Procedures Procedure Name Priority Date/Time Associated Diagnosis Comments PET/CT FDG SKULL TO THIGH Schedule Routine, Read Routine (OP Routine) 08/29/2024 9:15 AM DIETARY WORKER Cancer of base of tongue (HCC) from Last 3 Months Results * PET/CT FDG SKULL TO THIGH (08/29/2024 9:15 AM DIETARY WORKER) Anatomical Region Laterality Modality N/A Positron Emissio n Tomography (PET) 08/29/2024 10:2 7 AM DIETARY WORKER Impressions 08/29/2024 2:37 PM DIETARY WORKER 1. Markedly FDG-avid left base of tongue mass which crosses midline, compatible with biopsy-proven malignancy. 2. Moderate FDG-avidity at the right base of tongue may represent normal tonsilar uptake, however additional tumor cannot be excluded. 3. FDG-avid bilateral cervical lymphadenopathy, left greater than right as described above, compatible with regional tan metastases. 4. No PET/CT evidence of distant metastasis. Dictated by: Jj Noble MD The radiology attending physician has personally reviewed this study, and had reviewed and/or edited this written report and agrees with it. Electronically signed by: Akbar Meyer M.D. Narrative 08/29/2024 2:37 PM DIETARY WORKER EXAMINATION: TUMOR FDG-PET/CT IMAGING DATE OF STUDY: 08/29/2024 SCANNER: [facility] N PET Vision (NV1). This is a high-resolution scanner, which can result in higher SUVs (and even detection of new small lesions) compared to older scanners. RADIOPHARMACEUTICAL: 16.98 mCi F-18 Fluorodeoxyglucose (FDG) i.v. 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 The study is requested for initial staging. Initial treatment strategy. TECHNIQUE: The patient's fasting blood glucose level, measured by glucometer before injection of FDG, was 106 mg/dL. After intravenous administration of FDG, noncontrast CT images were obtained for attenuation correction and for fusion with emission PET images to allow for anatomical localization of PET findings. Emission PET images were then obtained. The study was interpreted on the [employer] workstation. The mean liver SUV (reported for rn clinical quality purposes) is 2.9. The total scanned area was skull vertex to proximal thighs. Images of the body were obtained starting 50 minutes after injection of tracer. All reported SUVs are maximum SUVs, unless otherwise specified. COMPARISON: No available comparison. DESCRIPTORS OF LESION FDG AVIDITY: Minimal: <= blood pool Mild: > blood pool and <= liver Moderate: > liver and <= 2x SUVmax liver Moderate to marked: >2x SUVmax liver and <= 3x SUVmax liver Marked: > 3x SUVmax liver FINDINGS: There is a markedly FDG avid mass centered at the left base of tongue which extends to the left tonsillar region and across midline , measuring approximately 3.8 x 3.0 cm with an SUV of 15.6 (image 75 of 360). There is moderate FDG-avidity at the right base of tongue/tonsillar region with an SUV of 7.8 (image 70), indeterminate. There is a markedly FDG avid left level 2 lymph node measuring 1.2 cm in short axis with an SUV of 12.2 (image 75). There is a mildly FDG avid left level 2 lymph node measuring 0.7 cm with an SUV of 3.2 (image 73). There is a markedly FDG avid left level 2 lymph node measuring 1.0 cm with an SUV of 11.6 (image 70). There is a markedly FDG avid left level 3 lymph node measuring 0.8 cm with an SUV of 12.9 (image 82). There is a mildly to moderately FDG avid right level II lymph node measuring 1.1 cm with an SUV of 4.0 (image 74). No suspicious pulmonary nodule. No suspicious osseous lesion. The most FDG-avid lesion is left base of tongue mass, has a maximum SUV of 15.6, and approximate axial dimensions of 3.8 x [address] findings: Scattered atherosclerotic disease of the descending thoracic aorta. Mild dependent atelectasis bilaterally. Atherosclerosis of the infrarenal abdominal aorta and iliac arteries. Prostatic calcifications are noted. Scattered colonic diverticulosis. Multilevel degenerative changes of the spine. Procedure Note Akbar Meyer MD - 08/29/2024 EXAMINATION: TUMOR FDG-PET/CT IMAGING DATE OF STUDY: 08/29/2024 SCANNER: [facility] [employer] (NV1). This is a high-resolution scanner, which can result in higher SUVs (and even detection of new small lesions) compared to older scanners. RADIOPHARMACEUTICAL: 16.98 mCi F-18 Fluorodeoxyglucose (FDG) i.v. 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 The study is requested for initial staging. Initial treatment strategy. TECHNIQUE: The patient's fasting blood glucose level, measured by glucometer before injection of FDG, was 106 mg/dL. After intravenous administration of FDG, noncontrast CT images were obtained for attenuation correction and for fusion with emission PET images to allow for anatomical localization of PET findings. Emission PET images were then obtained. The study was interpreted on the [employer] workstation. The mean liver SUV (reported for rn clinical quality purposes) is 2.9. The total scanned area was skull vertex to proximal thighs. Images of the body were obtained starting 50 minutes after injection of tracer. All reported SUVs are maximum SUVs, unless otherwise specified. COMPARISON: No available comparison. DESCRIPTORS OF LESION FDG AVIDITY: Minimal: <= blood pool Mild: > blood pool and <= liver Moderate: > liver and <= 2x SUVmax liver Moderate to marked: >2x SUVmax liver and <= 3x SUVmax liver Marked: > 3x SUVmax liver FINDINGS: There is a markedly FDG avid mass centered at the left base of tongue which extends to the left tonsillar region and across midline , measuring approximately 3.8 x 3.0 cm with an SUV of 15.6 (image 75 of 360). There is moderate FDG-avidity at the right base of tongue/tonsillar region with an SUV of 7.8 (image 70), indeterminate. There is a markedly FDG avid left level 2 lymph node measuring 1.2 cm in short axis with an SUV of 12.2 (image 75). There is a mildly FDG avid left level 2 lymph node measuring 0.7 cm with an SUV of 3.2 (image 73). There is a markedly FDG avid left level 2 lymph node measuring 1.0 cm with an SUV of 11.6 (image 70). There is a markedly FDG avid left level 3 lymph node measuring 0.8 cm with an SUV of 12.9 (image 82). There is a mildly to moderately FDG avid right level II lymph node measuring 1.1 cm with an SUV of 4.0 (image 74). No suspicious pulmonary nodule. No suspicious osseous lesion. The most FDG-avid lesion is left base of tongue mass, has a maximum SUV of 15.6, and approximate axial dimensions of 3.8 x [address] findings: Scattered atherosclerotic disease of the descending thoracic aorta. Mild dependent atelectasis bilaterally. Atherosclerosis of the infrarenal abdominal aorta and iliac arteries. Prostatic calcifications are noted. Scattered colonic diverticulosis. Multilevel degenerative changes of the spine. IMPRESSION: 1. Markedly FDG-avid left base of tongue mass which crosses midline, compatible with biopsy-proven malignancy. 2. Moderate FDG-avidity at the right base of tongue may represent normal tonsilar uptake, however additional tumor cannot be excluded. 3. FDG-avid bilateral cervical lymphadenopathy, left greater than right as described above, compatible with regional tan metastases. 4. No PET/CT evidence of distant metastasis. Dictated by: Jj Noble MD The radiology attending physician has personally reviewed this study, and had reviewed and/or edited this written report and agrees with it. Electronically signed by: Akbar Meyer M.D. us Kyle Kay MD IMG PET PROCEDURES Final R esult from Last 3 Months Insurance [facility] HMO/PPO Address: [address] [address] [facility] HMO/PPO Address: [address] [address] Care Teams Bait Digger Relationship Specialty Start Date End Date Kiana Ivey MD [address] [place] [address] PCP - General Internal Medicine 08/24/24
--- OUTSIDE RECORDS SUMMARY | 2024-11-26 16:34 | XMS_ITS | Referral Summary ---
Author Organization [facility] Address [address] [place] [address] Care Team Providers Care Stylist Assistant Name Role Phone Kiana Ivey MD Primary Care Provide r Encounters Date Type Department Care Team Description 08/29/2024 6:37 AM MEAT BUTCHER - 08/29/2024 11:59 PM MEAT BUTCHER Hospital Encounter [facility]) [address] [place] [address] Discharge Disposition: Discharge to home or self care 08/29/2024 6:37 AM MEAT BUTCHER - 08/29/2024 11:59 PM MEAT BUTCHER Hospital Encounter [facility]) [address] [place] [address] Cancer of base of tongue (HCC) Discharge Disposition: Discharge to home or self care from Last 3 Months Allergies No known active allergies Social History Tobacco Use Types Packs/Day Years Used Date Smoking Tobacco: Never Assessed Sex and Gender Information Value Date Recorded Sex Assigned at Not on file Legal Sex Male 10:15 AM MEAT BUTCHER Gender Identity Not on file Sexual Orientation Not on file Last Filed Vital Signs Vital Sign Reading Time Taken Comments Blood Pressure - - Pulse - - Temperature - - Respiratory Rate - - Oxygen Saturation - - Inhaled Oxygen Concentration - - Weight 93.7 kg (206 lb 9.6 oz) 08/29/2024 7:22 A M MEAT BUTCHER Height 177.8 cm (5' 10 ) 08/29/2024 7:22 AM MEAT BUTCHER Body Mass Index 29.64 08/29/2024 7:22 AM MEAT BUTCHER Plan of Treatment Not on file Procedures Procedure Name Priority Date/Time Associated Diagnosis Comments PET/CT FDG SKULL TO THIGH Schedule Routine, Read Routine (OP Routine) 08/29/2024 9:15 AM MEAT BUTCHER Cancer of base of tongue (HCC) from Last 3 Months Results * PET/CT FDG SKULL TO THIGH (08/29/2024 9:15 AM MEAT BUTCHER) Anatomical Region Laterality Modality N/A Positron Emissio n Tomography (PET) 08/29/2024 10:2 7 AM MEAT BUTCHER Impressions 08/29/2024 2:37 PM MEAT BUTCHER 1. Markedly FDG-avid left base of tongue [...] Akbar Meyer M.D. Narrative 08/29/2024 2:37 PM MEAT BUTCHER EXAMINATION: TUMOR FDG-PET/CT IMAGING DATE OF STUDY: 08/29/2024 SCANNER: [facility] [employer] Vision (NV1). This is a high-resolution scanner, [...] obtained. The study was interpreted on the [employer] workstation. The mean liver SUV (reported for quality improvement specialist purposes) is 2.9. The total scanned area [...] FDG-PET/CT IMAGING DATE OF STUDY: 08/29/2024 SCANNER: [facility] N PET Vision (NV1). This is a [...] obtained. The study was interpreted on the [employer] workstation. The mean liver SUV (reported for quality improvement specialist purposes) is 2.9. The total scanned area [...] it. Electronically signed by: Akbar Meyer M.D. Kyle Kay MD IMG PET PROCEDURES Final R esult from Last 3 Months Insurance [facility] R [facility] Care Teams Stylist Assistant Relationship Specialty Start Date End Date Kiana Ivey MD [address] [place] [address] PCP - General Internal Medicine 08/24/24
--- OUTSIDE RECORDS SUMMARY | 2024-11-26 16:34 | XMS_ITS | Clinical Summary ---
Author Organization [facility] Maeve gonz[facility] [address] Address [address] [place] [address] Care Team Providers Care Piano Case Maker Name Role Phone Gogo Ivey MD Primary Care Provider Allergies No known active allergies Medications HYDROcodone-reinaldo taminophen (NORCO) 5-325 mg tabletIndicatio ns:Tongue cancer (CMS/HCC) Take 1 Tablet by mouth every 4 hours as needed for Pain, Moderate. Max Daily Amount: 6 Tablets 40 Tablet 09/27/2024 Active ondansetron (ZOFRAN ODT) 8 mg Tablet, Rapid Dissolve Dissolve 1 tablet on top of tongue then swallow with saliva every 8 hours as needed for nausea or vomiting 30 Tablet 1 10/05/2024 Active sucralfate (Carafate) 100 mg/mL suspension Take 10 mL (1 Gram) by mouth 3 times daily. Take 1 hr prior to meals. 400 mL 3 11/15/2024 Active lidocaine (lidocaine viscous 2%) 2 % Solution 5 mL by Mouth/Throat route every 4 hours as needed for Pain. 200 mL 3 11/15/2024 Active Active Problems No known active problems Encounters Date Type Department Care Team Description 11/24/2024 9:15 AM CDT Office Visit [facility] - [address] [place] [address] Flex Royal MD Tongue cancer (CMS/HCC) (Primary Dx); Head and neck cancer (CMS/HCC) 11/22/2024 Orders Only [facility] [address] [place] [address] Flex Royal MD 11/21/2024 Orders Only [facility] Oncology and Hematology - [address] Flex Royal MD 11/16/2024 Orders Only [facility] Oncology and Hematology - [address] [place] [phone] Flex Royal MD 11/15/2024 Orders Only [facility] [address] [place] [phone] Nguyễn Powell MD 11/14/2024 Orders Only [facility] Oncology and Hematology - [address] [place] [phone] Flex Royal MD Tongue cancer (CMS/HCC) 10/31/2024 Orders Only [facility] Oncology and Hematology - [address] Flex Royal MD Tongue cancer ([facility]/HCC) 10/28/2024 Orders Only [facility]cology and Hematology - [address] [place] [phone] Flex Royal MD 10/27/2024 9:15 AM CDT Office Visit [facility]cology [facility]ematology - [address] [place] [phone] Flex Royal MD Tongue cancer ([facility]/HCC) (Primary Dx) 10/27/2024 Orders Only [facility] - [address] [place] [address] Flex Royal MD 10/17/2024 Orders Only [facility] - [address] [place] [phone] Flex Royal MD Tongue cancer (CMS/HCC) 10/06/2024 Orders Only [facility] - [address] Flex Royal MD 10/06/2024 Abstract [facility] - [place] [place] [phone] Flex Royal MD 10/05/2024 Refill [facility] - [address] [place] [phone] Flex Royal MD 10/04/2024 Orders Only [facility]ematology - [address] [place] [phone] Flex Royal MD Tongue cancer ([facility]/HCC) (Primary Dx) 09/27/2024 Orders Only [facility]ematology - [address] [place] [phone] Flex Royal MD Tongue cancer ([facility]/HCC) (Primary Dx) 09/09/2024 4:30 PM SENIOR OPERATOR Telephone Check Up [facility] [address] [place] [phone] Flex Royal MD Tongue cancer ([facility]/HCC) (Primary Dx) 08/30/2024 External Device Data ST[facility] ABSTRACTION Provider, Abstract 08/30/2024 External Device Data [facility] ABSTRACTION Provider, Abstract 08/30/2024 External Device Data [facility] ABSTRACTION Provider, Abstract from Last 3 Months Family History Medical History Relation Name Comments No Known Problems Brother No Known Problems Child 1 No Known Problems Child 2 No Known Problems Child 3 No Known Problems Child 4 Colon Cancer Father Prostate Cancer Father Skin Cancer Father No Known Problems Mother Relation Name Status Comments Brother Alive Child 1 Alive Child 2 Alive Child 3 Alive Child 4 Alive Father Alive Mother Alive Social History Tobacco Use Types Packs/Day Years Used Date Smoking Tobacco: Never Smokeless Tobacco: Never Tobacco Cessation:Counseling Given: Not Answered Alcohol Use Standard Drinks/Week Comments Yes 0 (1 standard drink = 0.6 oz pur e alcohol) Occasionally Sex and Gender Information Value Date Recorded Sex Assigned at Not on file Legal Sex Male 9:35 AM SENIOR OPERATOR Gender Identity Not on file Sexual Orientation Not on file Last Filed Vital Signs Vital Sign Reading Time Taken Comments Blood Pressure 132/85 11/24/2024 9:06 AM CDT Pulse 56 11/24/2024 9:06 AM CDT Temperature 35.7 C (96.3 F) 11/24/2024 9:06 AM CDT Respiratory Rate 15 11/24/2024 9:06 AM CDT Oxygen Saturation 94% 11/24/2024 9:06 AM CDT Inhaled Oxygen Concentration - - Weight 84.7 kg (186 lb 12.8 oz) 11/24/2024 9:06 AM CDT Height 177.8 cm (5' 10 ) 08/24/2024 2:03 PM SENIOR OPERATOR Body Mass Index 26.8 08/24/2024 2:03 PM SENIOR OPERATOR Plan of Treatment Upcoming Encounters Date Type Department Care Team (Late st Contact Info) Description 11/28/2024 Orders Only [facility]cology and Hematology [address] [place] [phone] [place] [address] [place], [place] [address] [place] [phone] Tongue cancer (CMS/HCC) 01/12/2025 10:00 AM CDT Office Visit [facility] and H[facility] [address] [place] [phone] Flex Royal MD [address] [place] [phone] Health Maintenance Due Date Last Done Comments Pre-Diabetes and Diabetes Screening 1960 DTAP/TDAP/TD VACCINES (1 - Tdap) 11/04/1978 COLORECTAL SCREENING 11/04/2004 Colorectal Cancer Screening 11/04/2004 FIT-DNA Q 3 years 11/04/2004 FIT/FOBT Q 1 year 11/04/2004 Flex Sig/CT Colonography Q 5 years 11/04/2004 PNEUMOCOCCAL VACCINE 50+ YEA RS (1 of 1 - PCV) 11/04/2009 RSV VACCINE (60+ or ) (1 - 1-dose 75+ series) 11/04/2034 INFLUENZA VACCINE Completed 06/28/2024 ZOSTER VACCINE Completed 09/20/2024, 07/17/2024 Procedures Procedure Name Priority Date/Time Associated Diagnosis Comments BASIC METABOLIC PANEL Routine 11/21/2024 3:20 PM CDT CBC MIXED CELL DIFFERENTIAL Routine 11/21/2024 11:17 AM CDT BASIC METABOLIC PANEL Routine 11/16/2024 3:21 PM CDT CBC MIXED CELL DIFFERENTIAL Routine 10/27/2024 12:54 PM CDT BASIC METABOLIC PANEL Routine 10/27/2024 11:57 AM CDT BASIC METABOLIC PANEL Routine 10/05/2024 4:12 PM CDT from Last 3 Months Results * BASIC METABOLIC PANEL (11/21/2024 3:20 PM CDT) Only the most recent of4 resultswithin the time period is included. Blood Flex Royal MD CHEMISTRY ORDERABLES Final Resu lt * CBC MIXED CELL DIFFERENTIAL (11/21/2024 11:17 AM CDT) Only the most recent of2 resultswithin the time period is included. Blood us Flex Royal MD HEMATOLOGY ORDERABLES Final Res ult from Last 3 Months Insurance [facility] CHOICE [id number] [facility] [id number] Care Teams Piano Case Maker Relationship Specialty Start Date End Date Gogo Ivey MD [address] [place] [phone] PCP - General Internal Medicine 08/24/24
--- OUTSIDE RECORDS SUMMARY | 2024-11-26 16:34 | XMS_ITS | Encounter Summary ---
Author Organization [facility] [employer] [facility] Address [address] [place] [address] Care Team Providers Care Storage Garage Manager Name Role Phone Gogo Ivey MD Primary Care Provider Encounter Details Date Type Department Care Team (Late st Contact Info) Description 11/21/2024 Orders Only [facility] Hematology - [address] [place] [address] Flex Royal MD [address] [place] [address] [employer] [address] [place] [phone] Social History Tobacco Use Types Packs/Day Years Used Date Smoking Tobacco: Never Smokeless Tobacco: Never Alcohol Use Standard Drinks/Week Comments Yes 0 (1 standard drink = 0.6 oz pur e alcohol) Occasionally Sex and Gender Information Value Date Recorded Sex Assigned at Not on file Legal Sex Male 9:35 AM GOLD ASSAYER Gender Identity Not on file Sexual Orientation Not on file documented as of this encounter Plan of Treatment Upcoming Encounters Date Type Department Care Team (Late st Contact Info) Description 11/28/2024 Orders Only [facility]ematology - [address] [place] [address] [place] [address] [place] [address] [employer] [address] [place] [address] Tongue cancer (CMS/HCC) 01/12/2025 10:00 AM CDT Office Visit [facility] Hematology - [address] [place] [address] Flex Royal MD [address] [facility] [address] [place] [address] documented as of this encounter Procedures Procedure Name Priority Date/Time Associated Diagnosis Comments BASIC METABOLIC PANEL Routine 11/21/2024 3:20 PM CDT documented in this encounter Results * BASIC METABOLIC PANEL (11/21/2024 3:20 PM CDT) Blood Flex Royal MD CHEMISTRY ORDERABLES Final Resu lt documented in this encounter Visit Diagnoses Not on filedocumented in this encounter Care Teams Storage Garage Manager Relationship Specialty Start Date End Date Gogo Ivey MD [address] [place] [address] PCP - General Internal Medicine 08/24/24 documented as of this encounter
--- OUTSIDE RECORDS SUMMARY | 2024-11-26 16:35 | XMS_ITS | Data Portability ---
Author Organization [facility], [facility] Address [address] [place] [address] Care Team Providers Care Casing Fluid Tender Name Role Phone TANNER MADISON Primary Care Provider TANNER MADISON Referring Provider [phone] Assessment Encounter Date Assessment Date Assessment LastModified by Organization Details LastModified Time 03/10/2023 03/10/2023 Mr. Green is a 62YO male with PMH back pain presents to the office for vertigo. Patient reports he has had vertigo for many years which is worse in the last 2 months. [email or web address] Not available 03/10/2023 16:27:57 Plan of Treatment Reminders Order Date Submit Date Provider Last Modified By Organization Details Last Modified Time Details Appointments None recorded . Lab PSA, serum or plasma 2022 023 [place] [facility], [address], [place], [address], 3 16:34:01 CBC 2022 023 [place] [facility], [address], [place], [address], 3 16:33:58 CMP, serum or plasma 2022 023 [place] [facility], [address], [place], [address], 3 16:33:59 lipid panel, serum 2022 023 [facility], [address], [place], [address], 3 16:34:00 Referral pain manageme nt referral 2022 023 JONARamona Lafleur DO ([facility]), [address], [address], [place], [address], 3 08:10:[address] referral 2022 023 riley Chou MD, [address], [address], [place], [address], 3 07:59:58 dermatol ogist referral 2022 023 ELIZABETH Negron MD, [address], [address], [place], [address], 3 08:05:19 Procedures None recorded . Surgeries None recorded . Imaging None recorded . Medication Orders omeprazo le 40 mg capsule, delayed release 2022 023 [email or web address] [facility] [employer] [address] [facility], [address], [place], [address], 4 09:49:18 meclizin e 25 mg tablet 2022 023 [email or web address] [facility] [employer] [address], [address], [place], [address], 4 09:49:24 Patient TargetsNo targets recorded. 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 for Screening for malignant neoplasm of colon Referring Physician: Tanner Madison [facility], Encounter Date: 09/17/2022 Pain Management Referral for Chronic low back pain Referring Physician: Tanner Madison [facility], Encounter Date: 09/17/2022 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 Referring Physician: Tanner Madison [facility], Encounter Date: 09/17/2022 Results Created Date Observation Date Name Description Value Unit Range Abnormal Flag Note LastModifiedBy Organization Detail LastModifiedTime 10/04/1910/03/2022 CBC W/ AUTOD IFF, COMPL ETE BLOOD COUNT WBC 5.6 K/uL 3.6-10 .0 Not Available [facility] [address] [place], [address], 10/03/2022 16:33:58 10/04/19 23 10/03/2022 CBC W/ AUTOD IFF, COMPL ETE BLOOD COUNT nucleated RBC 0.10 % 0.00-2 .00 Not Available [facility] [address] [place], [address], 10/03/2022 16:33:58 10/04/19 23 10/03/2022 CBC W/ AUTOD IFF, COMPL ETE BLOOD COUNT RBC 5.06 M/uL 4.10-5 .80 Not Available [facility] [address], [place], [address], 10/03/2022 16:33:58 10/04/19 23 10/03/2022 CBC W/ AUTOD IFF, COMPL ETE BLOOD COUNT HGB 15.6 g/dL 13.2-1 7.0 Not Available [facility], [place], [address], 10/03/2022 16:33:58 10/04/19 23 10/03/2022 CBC W/ AUTOD IFF, COMPL ETE BLOOD COUNT hematocrit 45.30 % 37.00- 51.00 Not Available [facility], [place], [address], 10/03/2022 16:33:58 10/04/19 23 10/03/2022 CBC W/ AUTOD IFF, COMPL ETE BLOOD COUNT MCV 89.6 fL 80.0-9 9.0 Not Available [facility], [place], [address], 10/03/2022 16:33:58 10/04/19 23 10/03/2022 CBC W/ AUTOD IFF, COMPL ETE BLOOD COUNT MCH 30.9 pg 27.0-3 3.0 Not Available [facility], [place], [address], 10/03/2022 16:33:58 10/04/19 23 10/03/2022 CBC W/ AUTOD IFF, COMPL ETE BLOOD COUNT MCHC 34.5 g/dL 32.0-3 6.0 Not Available [facility] [address] [place] [address] [address], [place], [address], 10/03/2022 16:33:58 10/04/19 23 10/03/2022 CBC W/ AUTOD IFF, COMPL ETE BLOOD COUNT platelets 179 K/uL 140-44 0 Not Available [facility], [place], [address], 10/03/2022 16:33:58 10/04/19 23 10/03/2022 CBC W/ AUTOD IFF, COMPL ETE BLOOD COUNT RDW 13.9 % 11.0-1 5.0 Not Available [facility], [place], [address], 10/03/2022 16:33:58 10/04/19 23 10/03/2022 CBC W/ AUTOD IFF, COMPL ETE BLOOD COUNT MPV 7.9 fL 7.4-10 .4 Not Available [facility], [place], [address], 10/03/2022 16:33:58 10/04/19 23 10/03/2022 CBC W/ AUTOD IFF, COMPL ETE BLOOD COUNT neutrophil, % 57.6 % Not Available [facility] [address] [place], [place] [address], [place], [address], 10/03/2022 16:33:58 10/04/19 23 10/03/2022 CBC W/ AUTOD IFF, COMPL ETE BLOOD COUNT lymphocyte % 29.0 % Not Available [facility] [address] [place] [address] [address], [place], [address], 10/03/2022 16:33:58 10/04/19 23 10/03/2022 CBC W/ AUTOD IFF, COMPL ETE BLOOD COUNT monocyte % 10.2 % Not Available [facility], [place], [address], 10/03/2022 16:33:58 10/04/19 23 10/03/2022 CBC W/ AUTOD IFF, COMPL ETE BLOOD COUNT eosinophil % 2.5 % Not Available [facility] [address] [place] [address] [address], [place], [address], 10/03/2022 16:33:58 10/04/19 23 10/03/2022 CBC W/ AUTOD IFF, COMPL ETE BLOOD COUNT basophil % 0.7 % Not Available [facility] [address], [place], [address], 10/03/2022 16:33:58 10/04/19 23 10/03/2022 CBC W/ AUTOD IFF, COMPL ETE BLOOD COUNT neutrophil, # 3.2 K/uL 1.5-7. 5 Not Available [facility], [place], [address], 10/03/2022 16:33:58 10/04/19 23 10/03/2022 CBC W/ AUTOD IFF, COMPL ETE BLOOD COUNT lymphocyte # 1.6 K/uL 0.8-4. 0 Not Available [facility] [address] [place], [place] [address], [place], [address], 10/03/2022 16:33:58 10/04/19 23 10/03/2022 CBC W/ AUTOD IFF, COMPL ETE BLOOD COUNT monocyte # 0.6 K/uL 0.1-1. 0 Not Available [facility] [address] [place] [address] [address], [place], [address], 10/03/2022 16:33:58 10/04/19 23 10/03/2022 CBC W/ AUTOD IFF, COMPL ETE BLOOD COUNT eosinophil # 0.1 K/uL 0.1-1. 0 Not Available [facility] [address] [place] [address] [address], [place], [address], 10/03/2022 16:33:58 10/04/19 23 10/03/2022 CBC W/ AUTOD IFF, COMPL ETE BLOOD COUNT basophil # 0.0 K/uL 0.0-0. 2 Not Available [facility] [address] [place] [address] [address], [place], [address], 10/03/2022 16:33:58 10/04/19 23 10/03/2022 CMP, COMPR EHENS KAILEY METAB OLIC PANEL glucose 93 mg/dL 70-100 Not Available [facility] [address], [place], [address], 10/03/2022 16:33:59 10/04/19 23 10/03/2022 CMP, COMPR EHENS KAILEY METAB OLIC PANEL BUN 16 mg/dL 7-25 Not Available [facility] [address] [place], [address], 10/03/2022 16:33:59 10/04/19 23 10/03/2022 CMP, COMPR EHENS KAILEY METAB OLIC PANEL creatinine 0.9 mg/dL 0.6-1. 3 Not Available [facility] [address] [facility] [address] [place], [address], 10/03/2022 16:33:59 10/04/19 23 10/03/2022 CMP, COMPR EHENS KAILEY METAB OLIC PANEL BUN/creatini ne ratio 17.98 calc Not Available [facility] [address], [place], [address], 10/03/2022 16:33:59 10/04/19 23 10/03/2022 CMP, COMPR EHENS KAILEY METAB OLIC PANEL eGFR 111 mL/mi n/1.7 3m2 >60 THREE CONSE CUTIV E VALUE S <60 mL/mi n COULD BE INDIC ATIVE OF KIDNE Y DISEA SE. Not Available [facility] [address] [facility] [address], [place], [address], 10/03/2022 16:33:59 10/04/19 23 10/03/2022 CMP, COMPR EHENS KAILEY METAB OLIC PANEL eGFR non- 92 mL/mi n/1.7 3m2 >60 THREE CONSE CUTIV E VALUE S < 60 mL/mi n COULD BE INDIC ATIVE OF KIDNE Y DISEA SE Not Available [facility] [address], [place], [address], 10/03/2022 16:33:59 10/04/19 23 10/03/2022 CMP, COMPR EHENS KAILEY METAB OLIC PANEL sodium 142 mmol/ L 135-14 5 Not Available [facility] [address], [place], [address], 10/03/2022 16:33:59 10/04/19 23 10/03/2022 CMP, COMPR EHENS KAILEY METAB OLIC PANEL potassium 4.0 mmol/ L 3.5-5. 5 Not Available [facility] [address], [place], [address], 10/03/2022 16:33:59 10/04/19 23 10/03/2022 CMP, COMPR EHENS KAILEY METAB OLIC PANEL chloride 107 mmol/ L 100-11 5 Not Available [facility] [address], [place], [address], 10/03/2022 16:33:59 10/04/19 23 10/03/2022 CMP, COMPR EHENS KAILEY METAB OLIC PANEL CO2 25 mmol/ L 21-33 Not Available [facility] [address], [place], [address], 10/03/2022 16:33:59 10/04/19 23 10/03/2022 CMP, COMPR EHENS KAILEY METAB OLIC PANEL anion gap 9.7 calc Not Available [facility] [address], [place], [address], 10/03/2022 16:33:59 10/04/19 23 10/03/2022 CMP, COMPR EHENS KAILEY METAB OLIC PANEL calcium 9.1 mg/dL 8.8-10 .6 Not Available [facility] [address], [place], [address], 10/03/2022 16:33:59 10/04/19 23 10/03/2022 CMP, COMPR EHENS KAILEY METAB OLIC PANEL total protein 7.0 g/dL 6.2-8. 6 Not Available [facility] [address], [place], [address], 10/03/2022 16:33:59 10/04/19 23 10/03/2022 CMP, COMPR EHENS KAILEY METAB OLIC PANEL albumin 4.2 g/dL 3.5-5. 7 Not Available [facility] [address], [place], [address], 10/03/2022 16:33:59 10/04/19 23 10/03/2022 CMP, COMPR EHENS KAILEY METAB OLIC PANEL globulin 2.8 g/dL 1.3-4. 0 Not Available [facility] [address], [place], [address], 10/03/2022 16:33:59 10/04/19 23 10/03/2022 CMP, COMPR EHENS KAILEY METAB OLIC PANEL A/G ratio 1.5 calc 1.0-2. 8 Not Available [facility] [facility] [facility] [address], [place], [address], 10/03/2022 16:33:59 10/04/19 23 10/03/2022 CMP, COMPR EHENS KAILEY METAB OLIC PANEL AST (SGOT) 11 U/L 13-39 low Not Available [facility] [address], [place], [address], 10/03/2022 16:33:59 10/04/19 23 10/03/2022 CMP, COMPR EHENS KAILEY METAB OLIC PANEL ALT (SGPT) 12 U/L 7-52 Not Available [facility] [address], [place], [address], 10/03/2022 16:33:59 10/04/19 23 10/03/2022 CMP, COMPR EHENS KAILEY METAB OLIC PANEL total bilirubin 0.79 mg/dL 0.30-1 .00 Not Available [facility] [address] [place], [address], 10/03/2022 16:33:59 10/04/19 23 10/03/2022 CMP, COMPR EHENS KAILEY METAB OLIC PANEL alkaline phosphatase 51 U/L 20-128 Not Available [facility] [address] [facility] [address] [place], [address], 10/03/2022 16:33:59 10/04/19 23 10/03/2022 LIPID PANEL W/ CALCU LATED LDL cholesterol 195 mg/dL 20-180 high EXPEC KARINA RESUL TS for ADULT S: Total issa stero l: Risk Class ifica tion: <200 mg/dl Jonathan able 200-2 39 mg/dl Borde rline high >240 mg/dl High Not Available [facility] [address] [place], [address], 10/03/2022 16:34:00 10/04/19 23 10/03/2022 LIPID PANEL W/ CALCU LATED LDL triglyceride 87 mg/dL 30-150 Not Available [facility] [address] [facility] [address] [place], [address], 10/03/2022 16:34:00 10/04/19 23 10/03/2022 LIPID PANEL W/ CALCU LATED LDL HDL cholesterol 40 mg/dL 23-92 Not Available [facility] [address] [facility] [address] [place], [address], 10/03/2022 16:34:00 10/04/19 23 10/03/2022 LIPID PANEL W/ CALCU LATED LDL chol/HDL risk ratio 5 calc <3.5 OPTIM AL Not Available [facility] [address], [place], [address], 10/03/2022 16:34:00 10/04/19 23 10/03/2022 LIPID PANEL W/ CALCU LATED LDL non-HDL cholesterol 155 mg/dL JONATHAN ABLE IS <130 mg/dl Not Available [facility] [address], [place], [address], 10/03/2022 16:34:00 10/04/19 23 10/03/2022 LIPID PANEL W/ CALCU LATED LDL VLDL cholesterol 17.40 mg/dL Not Available [facility] [address], [place], [address], 10/03/2022 16:34:00 10/04/19 23 10/03/2022 LIPID PANEL W/ CALCU LATED LDL LDL calculated 138 mg/dL 0-99 high Not Available [facility] [address], [place], [address], 10/03/2022 16:34:00 10/04/19 23 10/03/2022 PSA SCREE N PSA, total 0.499 NG/mL 0.000- 4.500 Updat ed range s in accor dance with ASC stand ards: Age Refer ence Range Up to 50 0.00- 2.50 ng/ml 50-59 0.00- 3.50 ng/ml 60-69 0.00- 4.50 ng/ml >70 0.00- 6.50 ng/ml Age speci fic cecilia l value s from the liter ature for PSA are provi ded as a guide only. No one decis ion level is appro priat e when utili zing PSA in scree hank situa tion. Age, famil y histo ry, previ ous value s, and other facto rs shoul d be used in decis ions invol ving PSA value s. Not Available [facility] [address], [place], [address], 10/03/2022 16:34:00 10/04/19 23 10/03/2022 VENIP UNCTU RE results Compl ete Not Available [facility] [address], [place], [address], 10/03/2022 06:50:07 09/17/19 23 01/15/2022 CT, chest No observ ation record ed. [email or web address] Not Available 10/28 16:45:36 Result Notes None recorded. Problems Name Problem SNOMED Code Status Onset Date Resolution Date Notes Provider Name and Address Organization Details Recorded Time Pain of left shoulder joint 570978278058 64413 Completed 201909/16/2022 Tanner Madison MD [address], [place], [address], [facility] - [facility], [facility] 3 20:28:27 Generaliz ed headache [id number] Completed 201909/16/2022 Tanner Madison MD [address], [place], [address], [facility] - [facility], [facility] 3 20:28:25 Dizziness 714754580 Completed 201909/16/2022 Tanner Madison MD [address], [place], [address], [facility] - [facility], [facility] 3 20:28:24 Hyperlipi demia 47250641 Active 2023 Tanner Madison MD [address], [place], [address], [facility] - [facility], [facility] 4 09:50:33 Notes:low back pain , neck p ain, Problem Notes None recorded. Procedures Surgical History Date Name Laterality Status Provider Name and Address Organization Details Recorded Time 07/27/18 80 appendectomy completed Joellen Fox CMA [place] - [facility], [facility] 09/17/2022 16:31:01 extraction of wisdom tooth completed Joellen Fox CMA [place] - [facility], [facility] 09/17/2022 16:30:46 Imaging Results Imaging Date Name Status LastModified by Organiz ation Details LastModified Time 01/15/2022 CT, chest completed [email or web address] Information no t available 10/28/2022 16:45:36 Procedure Notes None recorded. Medical Equipment None Reported. Allergies No known drug allergies Medications Name Sig Start Date Stop Date Status Note LastModified by Organization Details LastModified Time cyclobenzap rine 10 mg tablet Take 1 tablet 3 times a day by oral route. 03/10 completed Not Available Not Available Not Available methocarbam ol 500 mg tablet TAKE 1 TABLET BY MOUTH EVERY 6 HOURS NEEDED FOR MUSCLE SPASM 03/10 completed Not Available Not Available Not Available Augmentin 875 mg-125 mg tablet Take 1 tablet every 12 hours by oral route for 10 days. 09/16 completed Not Available Not Available Not Available Depo-Medrol 40 mg/mL suspension for injection Take 1 mL by injection route. 05/11 completed Not Available Not Available Not Available ibuprofen 800 mg tablet TAKE 1 TABLET (ORAL) 3 TIMES PER DAY NEEDED 09/16 completed Not Available Not Available Not Available valacyclovi r 1 gram tablet Take 1 tablet 3 times a day by oral route for 7 days. 04/05 completed Not Available Not Available Not Available meloxicam 15 mg tablet TAKE 1 TABLET BY MOUTH EVERY DAY 09/17 completed Not Available Not Available Not Available prednisone 20 mg tablet Take 2 tablets every day by oral route for 5 days. 09/16 completed Not Available Not Available Not Available omeprazole 40 mg capsule,del ayed release TAKE ONE CAPSULE BY MOUTH ONE TIME DAILY 09/16 completed Not Available Not Available Not Available meclizine 25 mg tablet TAKE ONE TABLET BY MOUTH TWICE A DAY 09/16 completed Not Available Not Available Not Available gabapentin 300 mg capsule Take 1 cap PO QD 1st day then BID 2nd day then TID PRN for pain (neuralgi a). 04/05 completed Not Available Not Available Not Available omeprazole 20 mg capsule,del ayed release TAKE ONE CAPSULE BY MOUTH THE NIGHT BEFORE PROCEDURE AND MORNING OF PROCEDURE WITH A SMALL SIP OF WATER 09/16 completed Not Available Not Available Not Available dexamethaso ne sodium phosphate 4 mg/mL injection solution Inject 1 mL by intramusc ular route. 05/11 completed Not Available Not Available Not Available fluticasone propionate 50 mcg/actuati on nasal spray,suspe nsion 1 spray each nostril twice daily 09/16 completed Not Available Not Available Not Available Vitals Date Recorded Body mass index (BMI) Body height Oxygen saturation Oxygen saturation in Arterial blood by Pulse oximetry Heart rate Respiratory rate Body temperature Body weight Systolic blood pressure Diastolic blood pressure Provider Name and Address Organization Details Last Updated DateTime 0 28.1 kg/m2 175.26 cm 98 % 98 % 76 /min 14 /min 97.4 [degF] 60266.5 5 g 122 mm[Hg] 76 mm[Hg] Not Available [facility] 2 23:04:10 Date Recorded Body mass index (BMI) Body height Oxygen saturation Oxygen saturation in Arterial blood by Pulse oximetry Heart rate Respiratory rate Body temperature Body weight Systolic blood pressure Diastolic blood pressure Provider Name and Address Organization Details Last Updated DateTime 0 29.5 kg/m2 175.26 cm 98 % 98 % 79 /min 16 /min 98.5 [degF] 76824.4 7 g 124 mm[Hg] 90 mm[Hg] Not Available [facility] 2 23:04:10 Date Recorded Oxygen saturation Oxygen saturation in Arterial blood by Pulse oximetry Heart rate Respiratory rate Body temperature Body weight Systolic blood pressure Diastolic blood pressure Provider Name and Address Organization Details Last Updated DateTime 1 99 % 99 % 90 /min 16 /min 98.1 [degF] 68155.5 5 g 130 mm[Hg] 78 mm[Hg] Not Available [facility] 2 23:04:10 Date Recorded Body weight Body mass index (BMI) Body height Pain severity - 0-10 verbal numeric rating [Score] - Reported Body temperature Heart rate Oxygen saturation Oxygen saturation in Arterial blood by Pulse oximetry Systolic blood pressure Diastolic blood pressure Provider Name and Address Organization Details Last Updated DateTime 3 87082.2 5 g 29.1 kg/m2 177.8 cm 6 98.8 [degF] 91 /min 97 % 97 % 138 mm[Hg] 88 mm[Hg] Joellen Fox CMA [facility], [facility] 3 16:34:23 Date Recorded Body height Body mass index (BMI) Body weight Body temperature Pain severity - 0-10 verbal numeric rating [Score] - Reported Heart rate Oxygen saturation Oxygen saturation in Arterial blood by Pulse oximetry Systolic blood pressure Diastolic blood pressure Provider Name and Address Organization Details Last Updated DateTime 3 177.8 cm 28.7 kg/m2 67916.7 6 g 97.9 [degF] 0 70 /min 98 % 98 % 139 mm[Hg] 78 mm[Hg] Jeri Romero [facility], [facility] 3 15:30:06 Social History Question Answer Notes LastModified by Organizat ion Details LastModified Time Tobacco Smoking Status Never Smoker HERACLIO Altman [address] [facility], [place], [address], [facility], [facility] 07/29/2017 16:07:55 Do You Have An Advance Directive? No Information not available 03/10/2023 Is Your Home Air Conditioned? Yes Information not available 03/10/2023 What Is Your Level Of Alcohol Consumption? Occasional 2-3 X Month Beer Information not available 09/17/2022 Are You Currently Sexually Active With Anyone Who Has Traveled (within The Last 12 Weeks) To A Zika-affected Area? No Information not available 03/10/2023 Is Blood Transfusion Acceptable In An Emergency? Yes Information not available 03/10/2023 What Is Your Level Of Caffeine Consumption? Moderate Diet Coke Daily Information not available 09/17/2022 In The 14 Days Before Symptom Onset, Have You Had Close Contact With A Laboratory-confir med COVID-19 While That Case Was Ill? No Information not available 03/10/2023 In The 14 Days Before Symptom Onset, Have You Had Close Contact With A Person Who Is Under Investigation For COVID-19 While That Person Was Ill? No Information not available 03/10/2023 Have You Been To An Area Known To Be High Risk For COVID-19? No Information not available 03/10/2023 Are You Currently Employed? Yes Information not available 03/10/2023 What Type Of Diet Are You Following? REGULAR Information not available 03/10/2023 Have You Processed Blood Or Body Fluids From An Ebola Virus Disease Patient Without Appropriate PPE? No Information not available 03/10/2023 Do You Reside In Or Have You Traveled To An Area Where Ebola Virus Transmission Is Active? No Information not available 03/10/2023 What Is The Highest Grade Or Level Of School You Have Completed Or The Highest Degree You Have Received? 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 03/10/2023 Information not available 03/10/2023 What Is Your Relationship Status? Information not available 03/10/2023 Are You Sexually Active? Yes Information not available 03/10/2023 Do You Have Smoke And Carbon Monoxide Detectors In Your Home? Yes Information not available 03/10/2023 Do You Or Have You Ever Used Smokeless Tobacco? Never Used Smokeless Tobacco Information not available 03/10/2023 Sex: Male Functional Status Question Answer Note LastModified by Organization D etails LastModified Time What is your exercise level? None Information not available 07/29/2017 Mental Status None recorded. Family History Relationship Description Onset Age of this Age Resolved Age Notes LastModified by Organization Details LastModified Time Father Malignant tumor of colon 75 [email or web address] Not available 2022 15:19:24 Father Kidney disease [email or web address] Not available 2022 15:19:24 Father Hypertensive disorder [email or web address] Not available 09/17 16:29:56 Mother Hypertensive disorder [email or web address] Not available 2022 16:37:40 Medical History Condition Response Cancer (location) N Gout N Other N Thyroid Disease N Kidney Stones N Emphysema/COPD N Measles/Mumps N Sexually Transmitted Disease N Depression N Prostate Problems N Vascular Disease N Rash/Skin Condition N Amputation (location) N Headaches/Migraines N Cardiac Pacemaker/defibrillator N Paralysis N Parkinson's N Nerve Damage / Neuropathy N Arthritis N Sleep disorder/Insomnia N Heart disease / Heart Attack N Crohn's Disease N HIV/AIDS N Stroke/TIA N Colon Problems N High Cholesterol N Serious Injuries N Kidney Disease N Memory Loss/Alzheimer's N High blood pressure N Gallbladder disease N Congestive heart failure N Falls N Hormone Replacement N Blood Thinner Treatment N Alcohol Overuse N Nervous Breakdown N Tomlinson's Esophagus N Anemia N Urinary Problems N Colon Polyps N Gastritis N Hospitalizations (other than operations) N Diabetes N Back pain Y Rheumatic Fever N Bleeding Disorder N Cardiac Arrhythmias /irregular heart rat e N Osteopenia/Osteoporosis N Anxiety/Stress N Vision Problems N Asthma N Erectile / Sexual Dysfunction N Ostomies (location) N Seizures N Sleep Apnea N Jaundice N Hepatitis N Cirrhosis N GERD/Ulcer Y Chicken Pox N Allergies (other than meds) N Immunizations Vaccine Type Date Status Note Provider Nam e and Address Organization Details Recorded Time Influenza, split virus, quadrivalent, preservative 9 completed Jeri christopher, [facility], [facility] 03/10/2023 15:23:35 pneumococcal polysaccharide PPV23 6 [facility] 15:23:35 Influenza, split virus, trivalent, PF 6 completed Joellen Fox CMA null, [facility] 09/17/2022 16:26:15 Influenza, split virus, quadrivalent, PF 7 completed [facility]/17[facility]2022 16:26:15 Past Encounters Encounter ID Performer Location Encounter Start Date Encounter Closed Date Diagnosis/Indication Diagnosis SNOMED-CT Code Diagnosis ICD10 Code Diagnosis Note [id number] HERACLIO Altman [facility] [address] [facility] [address] [place] [address] 07/29/2017 15:51:19 07/31/2017 11:53:14 Acute maxillary sinusitis 36127728 J01.00 Acute, uncontroll ed. Begin treatment as prescribed . Side effects reviewed in detail. Follow up if s/s worsen or persist. Screening for malignant neoplasm of rectum 168044410 Z12.12 Adult [facility] examination 987253315 Z00.00 Endocrine/ metabolic screening 118176455 Z13.29 Screening for cancer 158 58862 Z12.5 [id number] _[email or web address] [facility] [place] [address] [place] [address] [place] [address] 12/30/2019 00:00:00 12/30/2019 11:52:52 [id number] _[email or web address] [facility] [place] [address] [place] [address] [place] [address] 04/05/2020 00:00:00 04/05/2020 10:49:11 [id number] Morro Fitch MD [facility] [place] [address] [place] [address] 05/11/2021 00:00:00 05/11/2021 11:52:44 [id number] Tanner Madison MD [facility] [address] [place] [address] 09/17/2022 16:02:31 09/17/2022 17:15:42 Chronic low back pain 245589595 M54.50 will refer to pain management . Has MRI's of lumbar and cervical spine Neck pain 41253249 M54.2 not as bad as the back, will address in the future. Adult [facility] examination 797679215 Z00.01 Screening for malignant neoplasm of prostate 866252472 Z12.5 Screening for malignant neoplasm of colon 064381569 Z12.11 Skin lesion 29010940 L98 .9 [id number] HERACLIO BROWNE [facility] [address] [facility] [address] [facility] e [facility] [place] [address] 03/10/2023 15:17:50 03/10/2023 15:48:42 Benign paroxysmal positional vertigo 445203626 H81.10 Acute on chronic-Di scussed Arpit maneuver with patient-Pe rformed Arpit maneuver with improvemen t of symptoms-R ecommended meclizine to use twice daily as needed for dizziness. -If improvemen t with meclizine can discuss referral to ENT. If no improvemen t can discuss referral for neurology. -Return to clinic if worsening symptoms Gastroesop hageal reflux disease without esophagitis 323171552 K21.9 New diagnosis- Will try omeprazole 40 mg once daily discussed taking it every day-Discus sed avoiding laying flat after eating. Recommende d eating smaller meals more often and avoiding triggering foods such as citrus, chocolate, alcohol, tea, coffee.-Di scussed if no improvemen t with omeprazole will consider referral to GI for endoscopy. -Return to clinic if symptoms worsen Health Concerns Section Related Observation LastModified by Organization Detai ls LastModified Time None Recorded Concern Status LastModified by Organization Details LastModified Time None Recorded Advance Directives Directive N: Payers Encounter Date Sequence Insurance Name Policy Number Policy Sinclair Covered Member ID Sinclair Member ID Guarantor Name 09/17/2022 1 [place] [id number] Marco GreenMarco [id number] Marco Green 03/10/2023 1 [place] [id number] Soren Green [id number] Marco Green Notes Date Note Type Note Provider Name and Address Organization Details Recorded Time 09/17/2022 text/html Here to hemal chuy. HAs lots of back and neck pain. neck pain 3-4 times a day. LBP all the time, except for first in the morning.No radiation. No numbness or weakness. HAs tried 800 ibu, and flexeril, mobic, methocarbamol with no relief. Done PT twice and did nothing. Last time did 20 visits and never got better. HAs not seen a doctor for a while. Tanner Madison MD [address], [place], [address], [facility], [facility] 09/18/2022 07:18:33 03/10/2023 text/html Mr. Green is a 62YO male with PMH back pain presents to the office for vertigo. Patient reports he has had vertigo for many years which is worse in the last 2 months. Patient reports vertigo worsens with changes in position or when moving head from side to side. He describes vertigo as the room spinning around him. He has not tried anything to help with symptoms.He also reports has been having an issue with gastric reflux which has worsened. He has tried [id number] ranitidine, Tums and pantoprazole. HERACLIO BROWNE [address], [place], [address], [facility], [facility] 03/10/2023 16:29:28
--- OUTSIDE RECORDS SUMMARY | 2024-11-26 16:35 | XMS_ITS | Patient Health Record ---
Author Organization [facility] Address [address] [place] [address] Care Team Providers Care Customer Success Representative Name Role Phone Tanner Madison MD Primary Care Provider Unavail able Allergies No Known Allergies Reason For Referral No Information Medications Medication SIG (Take, Route, Fr equency, Duration) Notes Start Date End Date Status Omeprazole 20 MG 1 capsule Orally NIG HT BEFORE PROCEDURE AND MORNING OF PROCEDURE WITH A SMALL SIP OF WATER for 2 days Active Social History Tobacco Use: Social History Observation Description Date Details (start date - stop date) Never Smoker NA - NA Tobacco Use/Smoking Question Answer Notes Are you a nonsmoker Problems Problem Type SNOMED Code ICD Code Onset Dates Problem Status W/U Status Risk Notes Problem Lumbosacral spondylosis without myelopathy (14228187) Spondylosis without myelopathy or radiculopathy, lumbar region (M47.816) Active confirmed Problem Lumbosacral spondylosis without myelopathy (disorder) (85973183) Spondylosis without myelopathy or radiculopathy, lumbosacral region (M47.817) Active confirmed Problem Cervical spondylosis without myelopathy (021056452) Other spondylosis, cervical region (M47.892) Active confirmed Problem Cervical spondylosis without myelopathy (038232923) Other spondylosis, cervicothoracic region (M47.893) Active confirmed Problem Thoracic spondylosis without myelopathy (867606242) Other spondylosis, thoracic region (M47.894) Active confirmed Problem Thoracic spondylosis without myelopathy (192350288) Other spondylosis, thoracolumbar region (M47.895) Active confirmed Problem 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 (M99.61) Active confirmed Problem Spinal stenosis of lumbar region (93276386) Spinal stenosis, lumbar region without neurogenic claudication (M48.061) Active confirmed Plan Of Treatment No Information Insurance Providers Payer Name Payer Address Payer Phone Subscriber Number Group Number Insured Name Patient Relationship to Insured Coverage Start Date Coverage End Date BCBS OUT OF STATE [address] [place] [address] [id number] EUGENIA SMITH Self - patient is the insured Medical (General) History Medical History History ICD Code acid reflux/gerd arthritis Surgical History Surgery Date(Month/Year) appendix 1980
--- OUTSIDE RECORDS SUMMARY | 2024-11-26 16:39 | XMS_ITS | CONTINUITY OF CARE DOCUMENT ---
Author Name bettina dunbar Address Unknown Organization [facility] Address [address] [place] [address] Phone [phone] Care Team Providers Care Wine Master Name Role Phone Pankaj Bravo MD Unavailable PHYLLIS HILLMAN MD Unavailable PHYLLIS HILLMAN MD Unavailable INSURANCE PROVIDERS Payer name Policy type / Coverage type [place] red constitution party ID [facility] [employer] insurance [employer] 8 [id number]
[2024-11-26] MEDS: SODIUM CHLORIDE 0.9% IV 1,000 ML 100 ML IV CONT (17:59)
--- NOTE | 2024-11-26 19:25 | ADMGEN ---
This patient, Marco Green, was admitted to Medical Room 247-. Patient/family oriented to hospital policies and general routines including ID bracelet, bed and alarms, visiting hours, pain management, procedures, bathroom and other care routines, personal items, smoking policy, room service/diet, and visiting hours. Information on how to activate the Rapid Response Team has been discussed. Patient/Family are encouraged to report perceived risks to care and to ask questions if they do not understand what they are told or what they should do.
--- NOTE | 2024-11-26 19:28 | P.HP_ITS ---
H&P: HPI History of Present Illness Date/Time: 11/26/24 19:28 Chief Complaint: Difficulty swallowing Narrative: This is a very pleasant 64-year-old male patient with significant history of tongue cancer who is being treated by Dr. Royal for Chemo and radiation, who comes to the emergency room complaints of having difficulty swallowing. Patient states he last had his last chemo on Thursday of this past week, now 6 days ago, and his last radiation was on Thursday. 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 Patient states that monitor about November 23 he started to have some increased difficulty swallowing his secretions. He feels as though he has to spit all the time because it does not go all the way down. He denies any choking episode, fevers or actual vomiting. He states he does have occasional dyspnea. he has been given viscous lidocaine by Radiation Oncology to help with soreness in his oropharynx that he does continue to exhibit. Patient states today it became worse and they sent him to the emergency room for hydration. Of note patient states he has no other past medical history, has been very well and sees his primary care provider every 3 months. He does not take any medications on a daily basis and his only previous surgery was an appendectomy as a child. He does not partake of nicotine in any form he has an occasional drink of alcohol with the last being approximately 5 months ago and he denies any drug use. Patient is and resides at home with his spouse. In the emergency room workup consisted of labs and imaging. Labs including CBC that was unremarkable, CMP with noted potassium of 3.2 who was able to take oral replacement, urinalysis showing 2+ protein, specific gravity of greater than 1.045 and 1+ ketones signifying dehydration. CT soft tissue of neck was performed that shows a 2.3 cm mass at the left base of his tongue that is decreased in size and cervical lymph nodes that were previously seen are now resolved. Chest x-ray negative for any acute abnormalities. Patient maintaining his oxygen saturations without any required supplemental oxygen. ER provider spoke with GI Dr. Call who agrees to consult. Patient will likely need EGD to further diagnose. ER provider did have concern for potential thrush and patient was started on nystatin. He is being admitted at this time for further evaluation from GI and definitive treatment. Review of Systems Review of Systems: All systems reviewed & are unremarkable except as noted in HPI and below [facility] History Surgical History History of appendectomy Family History Family History Father Colon cancer Father Malignant neoplasm of prostate Father Hypertension Social History Social History Smoking status: Never smoker Second hand tobacco smoke exposure: No Spiritual care concerns: No Meds Home Medications and Allergies Home Medications ?Medication ?Instructions ?Recorded ?Confirmed ?Type ondansetron 8 mg disintegrating 8 mg PO Q8H PRN nausea and vomiting 10/05/24 11/21/24 History tablet Allergies Allergy/AdvReac Type Severity Reaction Status Date / Time No Known Allergies Allergy Verified 11/21/24 09:19 Vital Signs Vital Signs - 24 hr 11/26/24 13:23 11/26/24 16:01 11/26/24 16:15 Temperature 98.1 F Pulse Rate 78 65 73 Respiratory Rate 16 19 20 Blood Pressure 117/87 127/80 Pulse Oximetry 100 100 11/26/24 16:50 11/26/24 17:34 11/26/24 17:56 Temperature Pulse Rate 57 L 57 L 55 L Respiratory Rate 24 H 15 24 H Blood Pressure Pulse Oximetry 100 100 100 11/26/24 18:01 11/26/24 18:33 11/26/24 18:45 Temperature Pulse Rate 63 59 L 59 L Respiratory Rate 21 H 20 21 H Blood Pressure Pulse Oximetry 100 100 Exam Const: General: comfortable and no acute distress Other: sitting in high Kent's position in the stretcher in no acute distress is a 64-year-old gentleman. He appears of normal body stature. Current oxygen saturations normal. HENMT: Face/Nose/Sinus: Normal nares present and no epistaxis Mouth: Yes dry mucous membranes and Yes Abnormal oral and palatal mucosa present Other: Patient's soft palate and posterior oropharynx appears red, nonedematous with patent oral airway. There does not appear to be any coating on the tongue that resembles thrush, however there is an appearance of redness. I am unsure if this is due to patient's radiation therapy or if he could be developing a degree of thrush. Uvula present without midline shift. No visible tonsils. Mucosa appears tacky and dry. No ulcerative lesions. Eyes: General: appearance normal, both eyes and all related structures Neck: Neck: supple and no JVD Lymphatic: lymphadenopathy not noted Other: No appreciable lymphadenopathy. Resp: Effort & Inspection: normal respiratory effort Auscultation: clear to auscultation bilaterally Cardio: Rate: regular rate Rhythm: regular rhythm Heart sounds: no gallops, no murmurs and no rubs GI: Inspection: non-distended GI Palp: Yes Soft to palpation and No Tenderness to palpation present (GI) Auscultation: normal bowel sounds Skin: General skin exam: normal color, no rashes or lesions noted and no erythema Lesions: no lesions noted Rashes: no rashes noted Wounds: no wounds Neuro: General: gait normal Speech: normal speech Motor exam (neuro): 5/5 motor strength present throughout and Normal motor muscle tone present throughout Sensory Exam: normal sensation Extrem: General: normal to inspection, no edema and no pedal edema Other: Freely movable and full range of motion actively in all extremities. Psych: Mental Status: mental status grossly normal Affect: normal affect H&P: Results Labs Labs: Short CBC 11/26/24 Range/Units 14:11 WBC 3.6 L (4.5-10.0) K/mm3 Hgb 11.5 L (14.0-18.0) g/dL Hct 33.5 L (42.0-52.0) % Plt Count 138 L (150-375) k/mm3 BMP 11/26/24 14:11 Sodium 139 Potassium 3.2 L Chloride 101 Carbon Dioxide 27 BUN 29 H D Creatinine 1.22 Glucose 123 H Calcium 8.9 Liver Function 11/26/24 Range/Units 14:11 Total Bilirubin 0.9 (0.2-1.3) mg/dL AST 26 (17-59) U/L ALT 28 (6-50) U/L Alkaline Phosphatase 51 (38-126) U/L Albumin 4.2 (3.5-5.1) g/dL Urine 11/26/24 Range/Units 16:23 Urine Color Yellow (Yellow) Urine Appearance Clear (Clear) Urine pH 7.5 (5.0-9.0) Ur Specific [place] > 1.045 H (1.001-1.035) Urine Protein 2+ H (Negative) mg/dL Urine Glucose (UA) Negative (Negative) mg/dL Assessment and Plan Assessment and plan (1) Tongue malignant neoplasm: Code(s): C02.9 - Malignant neoplasm of tongue, unspecified Status: Acute Assessment and Plan: * Oncologist Dr. Royal, Radiation Onc Dr. 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 * Patient to remain NPO at this time. pending GI and speech eval * IV fluids for hydration to continue normal saline at 100 mL/hour. * continue Protonix * CT soft tissue neck showing a 2.3 cm mass at the left tongue base that is decreased in size. Cervical lymphadenopathy that was previously present is also resolved now. * GI also consulted and will be Managing along with medicine. (3) Dehydration: Code(s): E86.0 - Dehydration Status: Acute Assessment and Plan: * Secondary to numbers 1 and 2 above. * As evidenced by urinalysis showing 2+ protein, specific gravity greater than 1.045 and 1+ ketones. * Patient received IV fluids in emergency room * continues supportive IV fluid hydration with normal saline at 100 mL/hour * monitor and trend labs and vital signs. (4) Esophageal thrush: Code(s): B37.81 - Candidal esophagitis Status: Suspected Assessment and Plan: * One such possible etiology of exacerbation as patient is receiving chemotherapy and radiation. * Will continue nystatin (5) History of appendectomy: Code(s): Z90.49 - Acquired absence of other specified parts of digestive tract Status: Chronic Assessment and Plan: * history of as child Quality VTE Prophylaxis VTE prophylaxis: mechanical ordered Hospitalist MIPS Advance Care Plan I have confirmed that the patient's Advanced Care Plan is present, code status is documented, or surrogate decision maker is listed in patient medical record.: Yes Medication Reconciliation I have utilized all available resources to obtain, update and review the patients current medications (includes all prescriptions, OTC, herbals, cannabis, and nutritional supplements).: Yes
--- NOTE | 2024-11-26 21:52 | ECG_ITS ---
Test Date: 2024-11-26 22:27:38 Measurements Intervals [place] Rate: 63 P: 28 TX: 162 QRS: 11 QRSD: 105 T: 17 QT: 442 QTc: 453 Interpretive Statements SINUS RHYTHM NONSPECIFIC T-WAVE ABNORMALITY No previous ECG available for comparison Electronically Signed On 11-27-2024 16:03:57 CDT by Jasmine Medina
[2024-11-27] VITALS (9 sets, daily range): BP systolic 119–121; BP diastolic 68–73; PULSE 45–81; RESP 16–17; TEMP 36.2–37.4; O2SAT 99–100
[2024-11-27] MEDS: SODIUM CHLORIDE 0.9% IV 1,000 ML 100 ML IV CONT ×2 (05:39→15:39)
[2024-11-27] MEDS: PANTOPRAZOLE SODIUM IV 40 MG VIAL IV PUSH (09:34)
--- NOTE | 2024-11-27 09:38 | P.PNIM_ITS ---
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 Royal, Radiation Onc Dr. 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 * CT soft tissue neck showing a 2.3 cm mass at the left tongue base that is decreased in size. Cervical lymphadenopathy that was previously present is also resolved now. * NPO, GI consulted * monitor (3) Dehydration: Code(s): E86.0 - Dehydration Status: Acute Assessment and Plan: continue IVF (4) Esophageal thrush: Code(s): B37.81 - Candidal esophagitis Status: Suspected Assessment and Plan: * One such possible etiology of exacerbation as patient is receiving chemotherapy and radiation. * Will continue nystatin * while awaiting GI eval (5) History of appendectomy: Code(s): Z90.49 - Acquired absence of other specified parts of digestive tract Status: Chronic Assessment and Plan: * history of as child Plan Bradycardia EKG Electrolyte replaced Cardiology consulted Hypokalemia and Hypomagnesemia Replaced and monitor DVT prophylaxis on Sq Lovenox Subjective Date/time seen: 11/27/24 09:38 Interval history: Noted he had his last radiation therapy about 3 days ago and since then has lost his voice and with difficulty swallowing Review of Systems Review of Systems: All systems reviewed & are unremarkable except as noted in HPI and below Exam Const: General: comfortable and no acute distress Other: sitting in high Kent's position in the stretcher in no acute distress is a 64-year-old gentleman. He appears of normal body stature. Current oxygen saturations normal. HENMT: Face/Nose/Sinus: Normal nares present and no epistaxis Mouth: Yes dry mucous membranes and Yes Abnormal oral and palatal mucosa present Other: Patient's soft palate and posterior oropharynx appears red, nonedematous with patent oral airway. There does not appear to be any coating on the tongue that resembles thrush, however there is an appearance of redness. I am unsure if this is due to patient's radiation therapy or if he could be developing a degree of thrush. Uvula present without midline shift. No visible tonsils. Mucosa appears tacky and dry. No ulcerative lesions. Eyes: General: appearance normal, both eyes and all related structures Neck: Neck: supple and no JVD Lymphatic: lymphadenopathy not noted Other: No appreciable lymphadenopathy. Resp: Effort & Inspection: normal respiratory effort Auscultation: clear to auscultation bilaterally Cardio: Rate: regular rate Rhythm: regular rhythm Heart sounds: no gallops, no murmurs and no rubs GI: Inspection: non-distended Auscultation: normal bowel sounds Skin: General skin exam: normal color, no rashes or lesions noted, no erythema, No lesion and No rashes Lesions: no lesions noted Rashes: no rashes noted Wounds: no wounds Neuro: General: gait normal Speech: normal speech Motor exam (neuro): 5/5 motor strength present throughout and Normal motor muscle tone present throughout Sensory Exam: normal sensation Extrem: General: normal to inspection, no edema and no pedal edema Other: Freely movable and full range of motion actively in all extremities. Psych: Mental Status: mental status grossly normal Affect: normal affect Objective Data Vital Signs Vital Signs: Vital Signs - 24 hr 11/26/24 13:23 11/26/24 16:01 11/26/24 16:15 Temperature 98.1 F Pulse Rate 78 65 73 Respiratory Rate 16 19 20 Blood Pressure 117/87 127/80 Pulse Oximetry 100 100 Oxygen Delivery 11/26/24 16:50 11/26/24 17:34 11/26/24 17:56 Temperature Pulse Rate 57 L 57 L 55 L Respiratory Rate 24 H 15 24 H Blood Pressure Pulse Oximetry 100 100 100 Oxygen Delivery 11/26/24 18:01 11/26/24 18:33 11/26/24 18:45 Temperature Pulse Rate 63 59 L 59 L Respiratory Rate 21 H 20 21 H Blood Pressure Pulse Oximetry 100 100 Oxygen Delivery 11/26/24 20:00 11/26/24 20:00 11/26/24 20:22 Temperature 99.6 F Pulse Rate 43 L 58 L Respiratory Rate 16 Blood Pressure 133/64 Pulse Oximetry 100 Oxygen Delivery Room Air 11/27/24 00:00 11/27/24 04:00 11/27/24 06:00 Temperature 99.3 F Pulse Rate 53 L 51 L 48 L Respiratory Rate 16 Blood Pressure 119/68 Pulse Oximetry 100 Oxygen Delivery Intake/Output Intake/Output: Intake & Output 11/24/24 11/25/24 11/26/24 11/27/24 23:59 23:59 23:59 23:59 Intake Total 2100 1000 Output Total 425 300 Balance 1675 700 Meds/Results Medications: Active Medications Generic Name Dose Route Start Last Admin Trade Name Freq PRN Reason Stop Dose Admin Dextrose 12.5 gm 11/26/24 17:38 Dextrose 50% 25 Gm/50 Ml Syringe IV PUSH PRN PRN Hypoglycemia Protocol Glucagon 1 mg 11/26/24 17:38 Glucagon For Inj 1 Mg Vial IM PRN PRN Hypoglycemia Protocol Glucose 15 gm 11/26/24 17:38 Glucose Oral Gel 15 Gm Of Glucse In 37.5 Gm Tube PO PRN PRN Hypoglycemia Protocol Sodium Chloride 1,000 mls @ 100 mls/hr 11/26/24 17:40 11/27/24 05:39 Normal Saline Iv IV CONT 100 mls/hr .Q10H GILBERTO Administration Dextrose 1,000 mls @ 100 mls/hr 11/26/24 17:38 Dextrose 5% 1,000 Ml IVPB PRN PRN Hypoglycemia Protocol Nystatin 5 ml 11/26/24 21:00 11/27/24 09:34 Nystatin 100,000 Units/Ml Susp 5 Ml Oral.Susp PO Not Given QID GILBERTO Ondansetron HCl 4 mg 11/26/24 17:33 Ondansetron Inj 4 Mg/2 Ml Vial IV PUSH Q4H PRN Nausea Pantoprazole Sodium 40 mg 11/27/24 09:00 11/27/24 09:34 Pantoprazole Sodium Iv 40 Mg Vial IV PUSH 40 mg QAM GILBERTO Administration Radiology Results: ITS Impressions Soft Tissue Neck CT 11/26/24 15:42 IMPRESSION: 2.3 cm soft tissue density mass at the left base of the tongue, decreased in size since prior examination. The previously described cervical lymphadenopathy is decreased/has resolved. Chest X-Ray 11/26/24 15:58 IMPRESSION: No acute cardiopulmonary process. Labs Labs: Laboratory Results - last 24 hr 05/10/1811/26/24 11/26/24 14:09 14:11 16:23 WBC 3.6 L RBC 3.71 L Hgb 11.5 L Hct 33.5 L MCV 90.3 MCH 31.0 MCHC 34.3 RDW 13.9 Plt Count 138 L MPV 9.1 Immature Gran % (Auto) 0.3 Neut % (Auto) 74.9 H Lymph % (Auto) 12.5 L [place] % (Auto) 11.4 H Eos % (Auto) 0.6 Baso % (Auto) 0.3 Lymph # (Auto) 0.45 L [place] # (Auto) 0.4 Eos # (Auto) 0.0 Baso # (Auto) 0.0 Abs Immat Gran (auto) 0.01 Absolute Neuts (auto) 2.7 Absolute Nucleated RBC 0.000 Nucleated RBC % 0.0 Sodium 139 Potassium 3.2 L Chloride 101 Carbon Dioxide 27 Anion Gap 11 BUN 29 H D Creatinine 1.22 Estim Creat Clear Calc 56 Estimated GFR 60 Glucose 123 H Lactic Acid 1.6 Calcium 8.9 Magnesium 1.7 Total Bilirubin 0.9 AST 26 ALT 28 Alkaline Phosphatase 51 Total Protein 7.0 Albumin 4.2 Lipase 52 Urine Color Yellow Urine Appearance Clear Urine pH 7.5 Ur Specific [place] > 1.045 H Urine Protein 2+ H Urine Glucose (UA) Negative Urine Ketones 1+ H Ur Blood (Man) Negative Urine Nitrate Negative Urine Bilirubin Negative Urine Urobilinogen 1.0 Leukocyte Esterase Rfl Negative Urine RBC 0-2 Urine WBC 0-5 Ur Squamous Epith Cells None seen Urine Bacteria None seen Urine Casts 0-2 Quality VTE Prophylaxis VTE prophylaxis: mechanical ordered
--- NOTE | 2024-11-27 10:22 | PCSTNOTE ---
After chart review, ST determined bedside swallow evaluation be changed to modified barium swallow study; will be scheduled for 11/28. MD notified and agrees with recommendation.
[2024-11-27] MEDS: IBUPROFEN IV 400 MG in SODIUM CHLORIDE 0.9% IV 100 ML 208 MG IVPB (10:25)
--- NOTE | 2024-11-27 10:36 | ECG_ITS ---
Test Date: 2024-11-27 11:18:33 Measurements Intervals [place] Rate: 60 P: 6 CA: 142 QRS: -2 QRSD: 93 T: 20 QT: 447 QTc: 447 Interpretive Statements SINUS RHYTHM WITH OCCASIONAL VENTRICULAR PREMATURE COMPLEXES NONSPECIFIC T-WAVE ABNORMALITY Compared to ECG 11/26/2024 22:27:38 Ventricular premature complex(es) now present T-wave abnormality still present Electronically Signed On 11-27-2024 16:06:12 CDT by Jasmine Medina
[2024-11-27] MEDS: MAGNESIUM SULF 2 GM/WATER 50ML 2 GM/50 ML BAG IVPB (11:02)
[2024-11-27] MEDS: dexAMETHasone SOD PHOS INJ 4 MG/ML VIAL IV PUSH ×3 (12:34→23:12)
[2024-11-27] MEDS: ENOXAPARIN 40 MG/0.4 ML SYRINGE SUB-Q (12:36)
[2024-11-27] MEDS: OXYMETAZOLINE HCL 0.05% NAS 15 ML BTL (*BKC) 1 SPRAY NASAL (12:45)
[2024-11-27] MEDS: BENZOCAINE (*SP) 60 ML SPRAY CAN (HURRICAINE) 1 SPRAY MUCOUS MEM (12:45)
[2024-11-27] MEDS: POTASSIUM CHLORIDE INJ 40 MEQ in SODIUM CHLORIDE 0.9% IV 500 ML 130 MEQ IVPB ×2 (13:31→17:28)
--- NOTE | 2024-11-27 13:41 | P.CONCA_ITS ---
Assessment and Plan Assessment and plan (1) Bradycardia: Code(s): R00.1 - Bradycardia, unspecified Status: Acute Plan 1. Sinus Bradycardia -his episode of sinus tachycardia is in the setting of hypokalemia, chemotherapy with cisplatin which is also known to cause sinus bradycardia. he is also undergoing radiation of the neck which can cause bradycardia by affecting the carotis sinus baroreceptor -currently there is no evidence of recent syncope, syncope or dizziness -avoid AV tan agents -replenish electrolytes -continue to monitor him closely for bradycardia -consider sending him home on a 14 day Holter or a 30 day event monitor -there is no need for a pacemaker for now. However he is to be followed closely because of ongoing chemoradiation and potential for pacemaker if needed History of Present Illness History of Present Illness Consult date/time: 11/27/24 13:41 Reason For Visit: difficulty swallowing,tongue CA,dehydration,thrush Narrative: This is a very pleasant 64-year-old male patient with significant history of tongue cancer who is being treated by cisplatin/steroids and radiation Dr. Royal for Chemo and radiation, who comes to the emergency room complaints of having difficulty swallowing. Patient states he last had his last chemo on Thursday of this past week, now 6 days ago, and his last radiation was on Thursday. 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 Patient states that monitor about November 23 he started to have some increased difficulty swallowing his secretions. He feels as though he has to spit all the time because it does not go all the way down. He denies any choking episode, fevers or actual vomiting. He states he does have occasional dyspnea. he has been given viscous lidocaine by Radiation Oncology to help with soreness in his oropharynx that he does continue to exhibit. Patient states today it became worse and they sent him to the emergency room for hydration. Of note patient states he has no other past medical history, has been very well and sees his primary care provider every 3 months. He does not take any medications on a daily basis and his only previous surgery was an appendectomy as a child. He does not partake of nicotine in any form he has an occasional drink of alcohol with the last being approximately 5 months ago and he denies any drug use. Patient is and resides at home with his spouse. In the emergency room workup consisted of labs and imaging. Labs including CBC that was unremarkable, CMP with noted potassium of 3.2 who was able to take oral replacement, urinalysis showing 2+ protein, specific gravity of greater than 1.045 and 1+ ketones signifying dehydration. CT soft tissue of neck was performed that shows a 2.3 cm mass at the left base of his tongue that is decreased in size and cervical lymph nodes that were previously seen are now resolved. Chest x-ray negative for any acute abnormalities. Patient maintaining his oxygen saturations without any required supplemental oxygen. ER provider spoke with GI Dr. Call who agrees to consult. Patient will likely need EGD to further diagnose. ER provider did have concern for potential thrush and patient was started on nystatin. He is being admitted at this time for further evaluation from GI and definitive treatment. Review of Systems 2 Review of Systems: All systems reviewed & are unremarkable except as noted in HPI. All systems reviewed & are unremarkable except as noted in HPI and below PMFSH Surgical History Surgical History History of appendectomy Family History Family History Father Colon cancer Father Malignant neoplasm of prostate Father Hypertension Social History Social History Smoking status: Never smoker Second hand tobacco smoke exposure: No Alcohol intake: former Drinks per week: 4 Substance use: never Do You Feel Safe in your Home?: Yes Lack of Transportation: No Lack of Food: Never True Current Housing: I Have Housing Concerned About Future Housing: No Difficulty Paying Gas/Electric Bills: No Difficulty Paying for Meds: No Currently Unemployed: No Education: High School Diploma/GED Difficulty w/ Childcare or Family Care: No Spiritual care concerns: No Meds Home Medications and Allergies Home Medications ?Medication ?Instructions ?Recorded ?Confirmed ?Type ondansetron 8 mg disintegrating 8 mg PO Q8H PRN nausea and vomiting 10/05/24 11/21/24 History tablet Allergies Allergy/AdvReac Type Severity Reaction Status Date / Time No Known Allergies Allergy Verified 11/21/24 09:19 Vital Signs Vital Signs - 24 hr 11/26/24 16:01 11/26/24 16:15 11/26/24 16:50 Temperature Pulse Rate 65 73 57 L Respiratory Rate 19 20 24 H Blood Pressure 127/80 Pulse Oximetry 100 100 Oxygen Delivery 11/26/24 17:34 11/26/24 17:56 11/26/24 18:01 Temperature Pulse Rate 57 L 55 L 63 Respiratory Rate 15 24 H 21 H Blood Pressure Pulse Oximetry 100 100 Oxygen Delivery 11/26/24 18:33 11/26/24 18:45 11/26/24 20:00 Temperature Pulse Rate 59 L 59 L Respiratory Rate 20 21 H Blood Pressure Pulse Oximetry 100 100 Oxygen Delivery Room Air 11/26/24 20:00 11/26/24 20:22 11/27/24 00:00 Temperature 37.6 C Pulse Rate 43 L 58 L 53 L Respiratory Rate 16 Blood Pressure 133/64 Pulse Oximetry 100 Oxygen Delivery 11/27/24 04:00 11/27/24 06:00 Temperature 37.4 C Pulse Rate 51 L 48 L Respiratory Rate 16 Blood Pressure 119/68 Pulse Oximetry 100 Oxygen Delivery Exam 2 Narrative: GENERAL: Well appearing, thin, non-toxic, in no acute distress. HEAD: Normocephalic, atraumatic. ENT: Frequently spitting into emesis bag, dry MMs. There is mild posterior pharynx erythema with scant yellowish/white material surrounding oropharynx/soft palate. No tonsillar hypertrophy or exudate. Uvula midline and nonedematous. RESPIRATORY: Airway patent, respirations nonlabored. Clear to auscultation bilaterally, no rales, rhonchi, wheezing. No stridor. CARDIOVASCULAR: Regular rate and rhythm ABDOMINAL: Soft, nontender, nondistended. Normoactive BS. MUSCULOSKELETAL: Moves all extremities. No gross deformities. SKIN: Warm, dry, normal color. NEURO: A&O X3. Speech clear. Cranial nerves II-XII grossly intact. Steady gait. No ataxic movements. PSYCHIATRIC: Appropriate mood and affect. Normal interaction. Const: General: comfortable and no acute distress Other: sitting in high Kent's position in the stretcher in no acute distress is a 64-year-old gentleman. He appears of normal body stature. Current oxygen saturations normal. HENMT: Face/Nose/Sinus: Normal nares present and no epistaxis Mouth: Yes dry mucous membranes and Yes Abnormal oral and palatal mucosa present Other: Patient's soft palate and posterior oropharynx appears red, nonedematous with patent oral airway. There does not appear to be any coating on the tongue that resembles thrush, however there is an appearance of redness. I am unsure if this is due to patient's radiation therapy or if he could be developing a degree of thrush. Uvula present without midline shift. No visible tonsils. Mucosa appears tacky and dry. No ulcerative lesions. Eyes: General: appearance normal, both eyes and all related structures Neck: Neck: supple and no JVD Lymphatic: lymphadenopathy not noted O ther: No appreciable lymphadenopathy. Resp: Effort & Inspection: normal respiratory effort Auscultation: clear to auscultation bilaterally Cardio: Rate: regular rate Rhythm: regular rhythm Heart sounds: no gallops, no murmurs and no rubs GI: Inspection: non-distended Auscultation: normal bowel sounds Skin: General skin exam: normal color, no rashes or lesions noted, no erythema, No lesion and No rashes Lesions: no lesions noted Rashes: no rashes noted Wounds: no wounds Neuro: General: gait normal Speech: normal speech Motor exam (neuro): 5 /5 motor strength present throughout and Normal motor muscle tone present throughout Sensory Exam: normal sensation Extrem: General: normal to inspection, no edema and no pedal edema Other: Freely movable and full range of motion actively in all extremities. Psych: Mental Status: mental status grossly normal Affect: normal affect Results Labs and Meds 11/26/24 14:11 11/26/24 14:11 Lab results: Cardiac Enzymes 11/26/24 Range/Units 14:11 AST 26 (17-59) U/L CBC 11/26/24 Range/Units 14:11 WBC 3.6 L (4.5-10.0) K/mm3 RBC 3.71 L (4.6-6.20) M/mm3 Hgb 11.5 L (14.0-18.0) g/dL Hct 33.5 L (42.0-52.0) % Plt Count 138 L (150-375) k/mm3 Lymph # (Auto) 0.45 L (0.9-3.2) K/mm3 [place] # (Auto) 0.4 (0.1-0.6) K/mm3 Eos # (Auto) 0.0 (0-0.3) K/mm3 Baso # (Auto) 0.0 (0.0-0.1) K/mm3 Comprehensive Metabolic Panel 11/26/24 Range/Units 14:11 Sodium 139 (137-145) mmol/L Potassium 3.2 L (3.4-5.0) mmol/L Chloride 101 (98-107) mmol/L Carbon Dioxide 27 (22-30) mmol/L BUN 29 H D (9-20) mg/dL Creatinine 1.22 (0.7-1.3) mg/dL Glucose 123 H (65-110) mg/dL Calcium 8.9 (8.4-10.2) mg/dL AST 26 (17-59) U/L ALT 28 (6-50) U/L Alkaline Phosphatase 51 (38-126) U/L Total Protein 7.0 (6.3-8.2) g/dL Albumin 4.2 (3.5-5.1) g/dL Intake and Output 11/26/24 11/27/24 11/27/24 23:59 07:59 15:59 Intake Total 2100 1000 104 Output Total 425 300 Balance 1675 700 104 Intake: IV 2100 1000 104 Sodium Chloride 0.9% IV 1,000 2000 1000 ml @ 100 mls/hr IV CONT .Q10H [facility] Rx#:[id number] Ibuprofen IV 400 mg In Sodium 104 Chloride 0.9% IV 100 ml @ 208 mls/hr IVPB ONCE ONE Rx#: [id number] KCl 20 Meq/Sw 100 ml 100 ml @ 100 50 mls/hr IVPB ONCE STA Rx#: [id number] Oral 0 Output: Urine 425 300
--- NOTE | 2024-11-27 14:07 | WPDGICN ---
Assessment and Plan Assessment and plan (1) Odynophagia: Code(s): R13.10 - Dysphagia, unspecified Status: Acute Assessment and Plan: most likely from recent radiation therapy that caused local inflammation he has DH tube and that can be used temporary for feeding, ENT also recommended steroids to see if will improve edema also iv protonix, nystatin will hold off on EGD unless no clinical response, patient at this point of time prefers DH tube- if dysphagia does not improve and unable to eat then consider later on PEG placement (2) Difficulty swallowing: Qualifiers: Dysphagia type: unspecified Qualified Code(s): R13.10 - Dysphagia, unspecified Code(s): R13.10 - Dysphagia, unspecified Status: Acute (3) Dehydration: Code(s): E86.0 - Dehydration Status: Acute (4) Tongue malignant neoplasm: Code(s): C02.9 - Malignant neoplasm of tongue, unspecified Status: Acute (5) Malnutrition: Code(s): E46 - Unspecified protein-calorie malnutrition Status: Acute (6) Thrush, oral: Code(s): B37.0 - Candidal stomatitis Status: Acute GI Consult Note Consult date/time: 11/27/24 14:07 Reason for consult: odynophagia, h/o SCC oropharynx s/p XRT HPI: Marco Green is a 64 year old male patient with significant history of SCC of oropharynx HPV + who is being treated by Dr. Royal for Chemo and radiation. He is here with odynophagia and lack of taste, he has not been eating much last few days. He has been given viscous lidocaine by Radiation Oncology to help with soreness in his oropharynx but noted more discomfort after eating. ER noted CBC that was unremarkable, potassium of 3.2. CT soft tissue of neck was performed that shows a 2.3 cm mass at the left base of his tongue that is decreased in size and cervical lymph nodes that were previously seen are now resolved. Chest x-ray negative for any acute abnormalities. ENT just evaluated patient and able to place a DH tube. Review of Systems Constitutional: Constitutional: Denies chills Eyes: Eyes: Denies blurry vision ENT: Comments: h/o oropharynx cancer Cardiovascular: Cardiovascular: Denies chest pain Respiratory: Respiratory: Denies wheezing Gastrointestinal: Gastrointestinal: Reports no additional gastrointestinal complaints Genitourinary: Genitourinary: Denies dysuria Musculoskeletal: Musculoskeletal: Denies myalgias Integumentary/Breasts: Skin/Breast: Denies rash Neurologic: Denies Abnormal speech present Psychiatric: Psychiatric: Denies behavioral changes [facility] Past Medical History Medical History (Updated 11/27/24 @ 14:12 by Maxx Mcknight MD) Thrush, oral Malnutrition Odynophagia Surgical History Surgical History History of appendectomy Family History Family History Father Colon cancer Father Malignant neoplasm of prostate Father Hypertension Social History Social History Smoking status: Never smoker Second hand tobacco smoke exposure: No Alcohol intake: former Drinks per week: 4 Substance use: never Do You Feel Safe in your Home?: Yes Lack of Transportation: No Lack of Food: Never True Current Housing: I Have Housing Concerned About Future Housing: No Difficulty Paying Gas/Electric Bills: No Difficulty Paying for Meds: No Currently Unemployed: No Education: High School Diploma/GED Difficulty w/ Childcare or Family Care: No Spiritual care concerns: No Meds Home Medications and Allergies Home Medications ?Medication ?Instructions ?Recorded ?Confirmed ?Type ondansetron 8 mg disintegrating 8 mg PO Q8H PRN nausea and vomiting 10/05/24 11/21/24 History tablet Allergies Allergy/AdvReac Type Severity Reaction Status Date / Time No Known Allergies Allergy Verified 11/21/24 09:19 Vital Signs Vital Signs - 24 hr 11/26/24 16:01 11/26/24 16:15 11/26/24 16:50 Temperature Pulse Rate 65 73 57 L Respiratory Rate 19 20 24 H Blood Pressure 127/80 Pulse Oximetry 100 100 Oxygen Delivery 11/26/24 17:34 11/26/24 17:56 11/26/24 18:01 Temperature Pulse Rate 57 L 55 L 63 Respiratory Rate 15 24 H 21 H Blood Pressure Pulse Oximetry 100 100 Oxygen Delivery 11/26/24 18:33 11/26/24 18:45 11/26/24 20:00 Temperature Pulse Rate 59 L 59 L Respiratory Rate 20 21 H Blood Pressure Pulse Oximetry 100 100 Oxygen Delivery Room Air 11/26/24 20:00 11/26/24 20:22 11/27/24 00:00 Temperature 99.6 F Pulse Rate 43 L 58 L 53 L Respiratory Rate 16 Blood Pressure 133/64 Pulse Oximetry 100 Oxygen Delivery 11/27/24 04:00 11/27/24 06:00 Temperature 99.3 F Pulse Rate 51 L 48 L Respiratory Rate 16 Blood Pressure 119/68 Pulse Oximetry 100 Oxygen Delivery Exam Const: General: comfortable and no acute distress HENMT: Face/Nose/Sinus: Normal nares present and no epistaxis Mouth: Yes dry mucous membranes and Yes Abnormal oral and palatal mucosa present Other: DH in place in nostril Eyes: General: appearance normal, both eyes and all related structures Neck: Neck: supple and no JVD Lymphatic: lymphadenopathy not noted Resp: Effort & Inspection: normal respiratory effort Auscultation: clear to auscultation bilaterally Cardio: Rate: regular rate Rhythm: regular rhythm GI: Inspection: non-distended GI Palp: Yes Soft to palpation and No Tenderness to palpation present (GI) Auscultation: normal bowel sounds Skin: General skin exam: normal color and no rashes or lesions noted Neuro: Speech: normal speech Motor exam (neuro): 5/5 motor strength present throughout Extrem: General: normal to inspection, no edema and no pedal edema Psych: Mental Status: mental status grossly normal Affect: normal affect Results Labs 11/26/24 14:11 11/26/24 14:11 Labs: Short CBC 11/26/24 Range/Units 14:11 WBC 3.6 L (4.5-10.0) K/mm3 Hgb 11.5 L (14.0-18.0) g/dL Hct 33.5 L (42.0-52.0) % Plt Count 138 L (150-375) k/mm3 BMP 11/26/24 14:11 Sodium 139 Potassium 3.2 L Chloride 101 Carbon Dioxide 27 BUN 29 H D Creatinine 1.22 Glucose 123 H Calcium 8.9 Liver Function 11/26/24 Range/Units 14:11 Total Bilirubin 0.9 (0.2-1.3) mg/dL AST 26 (17-59) U/L ALT 28 (6-50) U/L Alkaline Phosphatase 51 (38-126) U/L Albumin 4.2 (3.5-5.1) g/dL Urine 11/26/24 Range/Units 16:23 Urine Color Yellow (Yellow) Urine Appearance Clear (Clear) Urine pH 7.5 (5.0-9.0) Ur Specific [place] > 1.045 H (1.001-1.035) Urine Protein 2+ H (Negative) mg/dL Urine Glucose (UA) Negative (Negative) mg/dL
--- NOTE | 2024-11-27 14:47 | WPDCN ---
Assessment and Plan Assessment and plan (1) Odynophagia: Code(s): R13.10 - Dysphagia, unspecified Status: Acute (2) Tongue malignant neoplasm: Code(s): C02.9 - Malignant neoplasm of tongue, unspecified Status: Acute (3) Difficulty swallowing: Qualifiers: Dysphagia type: unspecified Qualified Code(s): R13.10 - Dysphagia, unspecified Code(s): R13.10 - Dysphagia, unspecified Status: Acute (4) Oral mucositis: Code(s): K12.30 - Oral mucositis (ulcerative), unspecified Status: Acute Plan 64 Year old male s/p post radiochemotherapy for left tongue base cancer with dysphagia ,and oral stomatitis ,and possible pharyngoesophageal stomatitis -Dobbhoff tube tube was placed under direct visualization using Fiberoptic laryngoscope -Severe edema was noted in the postcricoid area and the arytenoid and interarytenoid area ,normal movement of vocal cords -The NGT tube is a temporary measure as i recommend doing PEG tube as custodial solution as the the NGT will cause nose irritation and discomfort for the patient -Further management as per Radiation Oncology -Oral hygiene and topical anesthetics for the throat pain -Repeat consult if needed Procedure Performed Fiberoptic laryngoscopy Diagnosis :Dysphagia,odynophagia,tongue CA,dehydration,oral mucositis Anesthesia Local Indications Dysphagia Findings Severe edema was noted in the postcricoid area and the arytenoid and interarytenoid area ,normal movement of vocal cords Description of Procedure FIBEROPTIC NASOLARYNGOSCOPY Anesthesia: Lidocaine and oxymetasoline Findings: The flexible fiberoptic laryngoscope was passed through the right nasal cavity and advanced to examine the nasopharynx, oropharynx, hypopharynx and larynx. The nasopharynx was without masses, lesions or mucosal irregularities. The pharyngeal randolph were symmetric without masses, lesions or mucosal irregularities. The vallecula and base of tongue was symmetric without masses, lesions or mucosal irregularities. The epiglottis and aryepiglottic folds were without masses, lesions or mucosal irregularities. The pyriform sinuses were symmetric without pooled secretions or suspicious lesions. The arytenoids and inter-arytenoid area was edematous without ulceration The glottis showed the false and true vocal folds to slightly edematous. True vocal cords had normal mobility with abduction and and midline approximation with adduction. Severe edema was noted in the postcricoid area and the arytenoid and interarytenoid area ,normal movement of vocal cords Procedure Performed NGT tube placement without fluoroscopic guidance CPT code 34819 Diagnosis: Anesthesia Local (20% Benzocaine oral spray) Indications Dysphagia Description of Procedure After obtaining verbal consent, I prepared the patient by spraying 20% benzocaine in the oral cavity and oxymetazoline in the nasal cavity. I then measured the distance from the xiphoid process to the nasal cavity and marked it on the Dobbhoff tube. With the assistance of the nurse, I atraumatically inserted the Dobbhoff tube into the left nostril under direct visualization using a fiberoptic nasopharyngoscope placed in the right nostril. The tube was advanced to the 66 cm brennen and taped to the nose. The patient tolerated the procedure well. tube placement in the stomach was confirmed with xray Estimated Blood Loss 0 (ml) Complications None (The initial attempt to insert the tube was aborted due to the guide wire becoming lodged within the tube's lumen and irremovable. The entire assembly was withdrawn, and a new tube was successfully placed using the same technique. The guide wire in the new tube will be removed after chest X-ray confirmation, preceded by a saline flush. ) Condition Stable HPI Data of Consult Date/Time: 11/27/24 14:47 Requesting Physician: Elizabeth Lindsay MD Primary Care Provider: Gogo Ivey, Consult Narrative Reason for consult: Dysphagia,odynophagia Narrative: Marco Green is a 64 year old male patient with significant history of SCC of oropharynx HPV + who is being treated by Dr. Royal for Chemo and radiation. He is here with odynophagia and lack of taste, he has not been eating much last few days. He has been given viscous lidocaine by Radiation Oncology to help with soreness in his oropharynx but noted more discomfort after eating. ER noted CBC that was unremarkable, potassium of 3.2. CT soft tissue of neck was performed that shows a 2.3 cm mass at the left base of his tongue that is decreased in size and cervical lymph nodes that were previously seen are now resolved. Chest x-ray negative for any acute abnormalities. Patient mentioned he has finished 23 radiation sessions and his difficulty fo swallowing and pain on swalloing has started 1 week ago Patient mentioned he is able to take small sips of water Review of Systems Review of Systems: All systems reviewed & are unremarkable except as noted in HPI and below Constitutional: Constitutional: Reports as per HPI ENT: Reports as per HPI Respiratory: Respiratory: Reports as per HPI Gastrointestinal: Gastrointestinal: Reports as per HPI COUNT INCLUDES THE [facility] Past Medical History Medical History (Updated 11/27/24 @ 15:29 by Lona Robertson MD) Oral mucositis Thrush, oral Malnutrition Odynophagia Surgical History Surgical History History of appendectomy Family History Family History Father Colon cancer Father Malignant neoplasm of prostate Father Hypertension Social History Social History Smoking status: Never smoker Second hand tobacco smoke exposure: No Alcohol intake: former Drinks per week: 4 Substance use: never Do You Feel Safe in your Home?: Yes Lack of Transportation: No Lack of Food: Never True Current Housing: I Have Housing Concerned About Future Housing: No Difficulty Paying Gas/Electric Bills: No Difficulty Paying for Meds: No Currently Unemployed: No Education: High School Diploma/GED Difficulty w/ Childcare or Family Care: No Spiritual care concerns: No Meds Home Medications and Allergies Home Medications ?Medication ?Instructions ?Recorded ?Confirmed ?Type ondansetron 8 mg disintegrating 8 mg PO Q8H PRN nausea and vomiting 10/05/24 11/21/24 History tablet Allergies Allergy/AdvReac Type Severity Reaction Status Date / Time No Known Allergies Allergy Verified 11/21/24 09:19 Vital Signs Vital Signs - 24 hr 11/26/24 16:01 11/26/24 16:15 11/26/24 16:50 Temperature Pulse Rate 65 73 57 L Respiratory Rate 19 20 24 H Blood Pressure 127/80 Pulse Oximetry 100 100 Oxygen Delivery 11/26/24 17:34 11/26/24 17:56 11/26/24 18:01 Temperature Pulse Rate 57 L 55 L 63 Respiratory Rate 15 24 H 21 H Blood Pressure Pulse Oximetry 100 100 Oxygen Delivery 11/26/24 18:33 11/26/24 18:45 11/26/24 20:00 Temperature Pulse Rate 59 L 59 L Respiratory Rate 20 21 H Blood Pressure Pulse Oximetry 100 100 Oxygen Delivery Room Air 11/26/24 20:00 11/26/24 20:22 11/27/24 00:00 Temperature 37.6 C Pulse Rate 43 L 58 L 53 L Respiratory Rate 16 Blood Pressure 133/64 Pulse Oximetry 100 Oxygen Delivery 11/27/24 04:00 11/27/24 06:00 Temperature 37.4 C Pulse Rate 51 L 48 L Respiratory Rate 16 Blood Pressure 119/68 Pulse Oximetry 100 Oxygen Delivery Exam Const: General: cooperative, healthy appearing, comfortable, no acute distress, well developed, alert, awake and Physically active Orientation/consciousness: oriented to person, oriented to place, oriented to time and patient oriented x3 HENMT: Head: normocephalic and atraumatic Ears: external ears normal and EAC's normal Face/Nose/Sinus: Normal external nose present, Normal nares present, Abnormal mucous membranes and turbinates present and Abnormal nasal septum present deviated to the left Face and sinus: normal facial exam Mouth: Yes lip normal, Yes tongue normal, Yes dry mucous membranes, Yes audible dysphonia and Yes other Mouth/tongue images:  1. Mucositis 2. Mucositis Teeth and gingiva: dentition normal and gingiva normal Eyes: General: appearance normal, both eyes and all related structures Neck: Neck: normal visual inspection, full ROM and trachea midline Other: Larynx:swollen edematous posterior arytenoids,normal movement of vocal cords Resp: Effort & Inspection: normal respiratory effort and able to speak in complete sentences Cardio: Rate: regular rate Neuro: General: oriented to person, oriented to place, oriented to time and patient oriented x3 Results Labs 11/26/24 14:11 11/26/24 14:11 Labs: Urine 11/26/24 Range/Units 16:23 Urine Color Yellow (Yellow) Urine Appearance Clear (Clear) Urine pH 7.5 (5.0-9.0) Ur Specific Waggoner > 1.045 H (1.001-1.035) Urine Protein 2+ H (Negative) mg/dL Urine Glucose (UA) Negative (Negative) mg/dL
--- NOTE | 2024-11-27 15:05 | W.PM.PROC2 ---
Procedure Note - Detailed Date of Procedure 11/27/24 Pre-op Diagnosis difficulty swallowing,tongue CA,dehydration,thrush Procedure Performed Fiberoptic laryngoscopy Surgeon Lona Robertson MD Anesthesia Local Indications Dysphagia Findings Severe edema was noted in the postcricoid area and the arytenoid and interarytenoid area ,normal movement of vocal cords Description of Procedure FIBEROPTIC NASOLARYNGOSCOPY Anesthesia: Lidocaine and oxymetasoline Findings: The flexible fiberoptic laryngoscope was passed through the right nasal cavity and advanced to examine the nasopharynx, oropharynx, hypopharynx and larynx. The nasopharynx was without masses, lesions or mucosal irregularities. The pharyngeal randolph were symmetric without masses, lesions or mucosal irregularities. The vallecula and base of tongue was symmetric without masses, lesions or mucosal irregularities. The epiglottis and aryepiglottic folds were without masses, lesions or mucosal irregularities. The pyriform sinuses were symmetric without pooled secretions or suspicious lesions. The arytenoids and inter-arytenoid area was edematous without ulceration The glottis showed the false and true vocal folds to slightly edematous. True vocal cords had normal mobility with abduction and and midline approximation with adduction. Severe edema was noted in the postcricoid area and the arytenoid and interarytenoid area ,normal movement of vocal cords EBL none No complications were noted. Estimated Blood Loss 0 (ml) Urine Output 300 Complications None Condition Stable Disposition No change
--- NOTE | 2024-11-27 15:10 | P.OP_ITS ---
Procedure Note - Detailed Date of Procedure 11/27/24 Pre-op Diagnosis difficulty swallowing,tongue CA,dehydration,thrush Post-op Diagnosis Same Procedure Performed NGT tube placement without fluoroscopic guidance Surgeon Lona Robertson MD Anesthesia Local (20% Benzocaine oral spray) Indications Dysphagia Description of Procedure After obtaining verbal consent, I prepared the patient by spraying 20% benzocaine in the oral cavity and oxymetazoline in the nasal cavity. I then measured the distance from the xiphoid process to the nasal cavity and marked it on the Dobbhoff tube. With the assistance of the nurse, I atraumatically inserted the Dobbhoff tube into the left nostril under direct visualization using a fiberoptic nasopharyngoscope placed in the right nostril. The tube was advanced to the 66 cm brennen and taped to the nose. The patient tolerated the p rocedure well. EBL :none Complication :none tube placement in the stomach was confirmed with KUB xray Estimated Blood Loss 0 (ml) Urine Output 300 Complications None (the first attempt of tube insertion was cancelled as the guide wire was stuck inside the lumen and i could not remove it,hence it was withdrawn ,and a new tube was placed the same way,the guide wire will be removed after CXR confirmation with flushing of saline before pulling the guide wire ) Condition Stable Disposition No change [facility] Billing Surgery - Charge Forward: Surgery Billing
--- NOTE | 2024-11-27 18:32 | PC.NURSE ---
[id number] Dr Robertson placed Dobhoff ng tube with scope at bedside. Measured at 70 cm. Chest xray confirmed placement.
[2024-11-27] MEDS: LORazepam INJ (*CRX) 2 MG/ML VIAL 0.5 MG IV PUSH (20:33)
[2024-11-28] VITALS (9 sets, daily range): BP systolic 113–126; BP diastolic 65–70; PULSE 46–71; RESP 17–20; TEMP 36.6–36.7; O2SAT 98–99; BMI 26.5
[2024-11-28] MEDS: SODIUM CHLORIDE 0.9% IV 1,000 ML 100 ML IV CONT ×3 (02:38→23:32)
[2024-11-28 05:21] LABS: Alanine Aminotransferase 26 U/L (6-50); Albumin Level 3.4 g/dL (3.5-5.1); Alkaline Phosphatase 52 U/L (38-126); Anion Gap 9 mmol/L (4-12); Aspartate Amino Transferase 23 U/L (17-59); Bilirubin,Total 0.5 mg/dL (0.2-1.3); Blood Urea Nitrogen 27 mg/dL (9-20); Calcium 7.5 mg/dL (8.4-10.2); Carbon Dioxide 22 mmol/L (22-30); Chloride 109 mmol/L (98-107); Estimated CRCL calculation 62 ml/min; Estimated Glomerular Filt Rate > 60; Glucose 129 mg/dL (65-110); Magnesium 1.6 mg/dL (1.6-2.3); Potassium 3.8 mmol/L (3.4-5.0); Sodium 140 mmol/L (137-145)
[2024-11-28] MEDS: dexAMETHasone SOD PHOS INJ 4 MG/ML VIAL IV PUSH ×4 (05:45→23:31)
[2024-11-28 06:12] LABS: Basophils Percent Auto 0.3 % (0.2-1.2); Hematocrit 31.5 % (42.0-52.0); Hemoglobin 10.7 g/dL (14.0-18.0); Immature Granulocyte Absolute 0.02 K/mm3 (0.00-0.031); Immature Granulocyte Percent A 0.6 % (0-0.5); Immature Platelet Fraction Pct 2.3 % (0.9-11.2); Lymphocytes Absolute Auto 0.31 K/mm3 (0.9-3.2); Lymphocytes Percent Auto 8.9 % (18.3-44.2); Mean Corpuscular Hemoglobin 31.1 pg (26-34); Mean Corpuscular Volume 91.6 fl (80-100); Mean Platelet Volume 9.8 fl (7.4-10.4); Monocytes Absolute Auto 0.2 K/mm3 (0.1-0.6); Monocytes Percent Auto 6.6 % (2.6-8.5); Neutrophils Absolute Auto 2.9 K/mm3 (1.3-6.7); Neutrophils Percent Auto 83.6 % (45.5-73.1); Platelet Count Result 110 k/mm3 (150-375); Red Blood Count 3.44 M/mm3 (4.6-6.20); White Blood Count 3.5 K/mm3 (4.5-10.0)
--- NOTE | 2024-11-28 08:34 | PCCARD ---
SPOKE WITH PATIENT'S RN 11/28/24 8:30 AM - CANCELLING 3-7 DAY HOLTER MONITOR - DR ESTES NOTE TO HAVE A 14 DAY HOLTER OR 30 EVENT MONITOR, HEART CARE SHOULD DO IN THEIR OFFICE WHEN PATIENT IS DISCHARGED
[2024-11-28] MEDS: ENOXAPARIN 40 MG/0.4 ML SYRINGE SUB-Q (08:36)
[2024-11-28] MEDS: PANTOPRAZOLE SODIUM IV 40 MG VIAL IV PUSH (08:36)
--- NOTE | 2024-11-28 11:40 | P.PNIM_ITS ---
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 Royal, Radiation Onc Dr. 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 (2) Difficulty swallowing: Qualifiers: Dysphagia type: unspecified Qualified Code(s): R13.10 - Dysphagia, unspecified Code(s): R13.10 - Dysphagia, unspecified Status: Acute Assessment and Plan: * Etiology side effect of radiation versus thrush versus metastasis * Speech therapy evaluation has been consulted. * CT soft tissue neck showing a 2.3 cm mass at the left tongue base that is decreased in size. Cervical lymphadenopathy that was previously present is also resolved now. * NPO, GI consulted * Monitor (3) Dehydration: Code(s): E86.0 - Dehydration Status: Acute Assessment and Plan: continue IVF (4) Esophageal thrush: Code(s): B37.81 - Candidal esophagitis Status: Suspected Assessment and Plan: * One such possible etiology of exacerbation as patient is receiving chemotherapy and radiation. * Will continue nystatin * While awaiting GI eval (5) History of appendectomy: Code(s): Z90.49 - Acquired absence of other specified parts of digestive tract Status: Chronic Assessment and Plan: * history of as child Plan Bradycardia EKG Electrolyte replaced Cardiology eval noted Cisplatin related 14-day event monitor Cardiology consulted Hypokalemia and Hypomagnesemia Replaced and monitor DVT prophylaxis on Sq Lovenox Awaiting patient tolerating diet and clearance of GI and ENT Subjective Date/time seen: 11/28/24 11:40 Interval history: Comfortable at bedside Passed swallow eval today awaiting ENT, GI clearance Review of Systems Review of Systems: All systems reviewed & are unremarkable except as noted in HPI and below Exam Const: General: comfortable and no acute distress Other: sitting in high Kent's position in the stretcher in no acute distress is a 64-year-old gentleman. He appears of normal body stature. Current oxygen saturations normal. HENMT: Face/Nose/Sinus: Normal nares present and no epistaxis Mouth: Yes dry mucous membranes and Yes Abnormal oral and palatal mucosa present Other: Patient's soft palate and posterior oropharynx appears red, nonedematous with patent oral airway. There does not appear to be any coating on the tongue that resembles thrush, however there is an appearance of redness. I am unsure if this is due to patient's radiation therapy or if he could be developing a degree of thrush. Uvula present without midline shift. No visible tonsils. Mucosa appears tacky and dry. No ulcerative lesions. Eyes: General: appearance normal, both eyes and all related structures Neck: Neck: supple and no JVD Lymphatic: lymphadenopathy not noted Other: No appreciable lymphadenopathy. Resp: Effort & Inspection: normal respiratory effort Auscultation: clear to auscultation bilaterally Cardio: Rate: regular rate Rhythm: regular rhythm Heart sounds: no gallops, no murmurs and no rubs GI: Inspection: non-distended Auscultation: normal bowel sounds Skin: General skin exam: normal color, no rashes or lesions noted, no erythema, No lesion and No rashes Lesions: no lesions noted Rashes: no rashes noted Wounds: no wounds Neuro: General: gait normal Speech: normal speech Motor exam (neuro): 5/5 motor strength present throughout and Normal motor muscle tone present throughout Sensory Exam: normal sensation Extrem: General: normal to inspection, no edema and no pedal edema Other: Freely movable and full range of motion actively in all extremities. Psych: Mental Status: mental status grossly normal Affect: normal affect Objective Data Vital Signs Vital Signs: Vital Signs - 24 hr 11/27/24 12:00 11/27/24 14:29 11/27/24 16:00 Temperature 97.2 F L Pulse Rate 61 51 L 59 L Respiratory Rate 16 Blood Pressure 121/73 Pulse Oximetry 99 Oxygen Delivery 11/27/24 19:42 11/27/24 20:00 11/27/24 20:36 Temperature 98.1 F Pulse Rate 45 L 46 L Respiratory Rate 17 Blood Pressure 119/69 Pulse Oximetry 100 Oxygen Delivery Room Air 11/28/24 00:00 11/28/24 04:00 11/28/24 04:32 Temperature 97.9 F Pulse Rate 46 L 46 L 49 L Respiratory Rate 17 Blood Pressure 116/70 Pulse Oximetry 98 Oxygen Delivery 11/28/24 08:00 11/28/24 08:35 Temperature Pulse Rate 71 Respiratory Rate Blood Pressure Pulse Oximetry Oxygen Delivery Room Air Intake/Output Intake/Output: Intake & Output 11/25/24 11/26/24 11/27/24 11/28/24 23:59 23:59 23:59 23:59 Intake Total 2100 2104 1000 Output Total 425 600 300 Balance 1675 1504 700 Meds/Results Medications: Active Medications Generic Name Dose Route Start Last Admin Trade Name Freq PRN Reason Stop Dose Admin Dexamethasone Sodium Phosphate 4 mg 11/27/24 12:00 11/28/24 05:45 Dexamethasone Sod Phos Inj 4 Mg/Ml Vial IV PUSH 4 mg Q6HR GILBERTO Administration Dextrose 12.5 gm 11/26/24 17:38 Dextrose 50% 25 Gm/50 Ml Syringe IV PUSH PRN PRN Hypoglycemia Protocol Enoxaparin Sodium 40 mg 11/27/24 09:00 11/28/24 08:36 Enoxaparin 40 Mg/0.4 Ml Syringe SUB-Q 40 mg DAILY GILBERTO Administration Glucagon 1 mg 11/26/24 17:38 Glucagon For Inj 1 Mg Vial IM PRN PRN Hypoglycemia Protocol Glucose 15 gm 11/26/24 17:38 Glucose Oral Gel 15 Gm Of Glucse In 37.5 Gm Tube PO PRN PRN Hypoglycemia Protocol Sodium Chloride 1,000 mls @ 100 mls/hr 11/26/24 17:40 11/28/24 02:38 Normal Saline Iv IV CONT 100 mls/hr .Q10H GILBERTO Administration Dextrose 1,000 mls @ 100 mls/hr 11/26/24 17:38 Dextrose 5% 1,000 Ml IVPB PRN PRN Hypoglycemia Protocol Nystatin 5 ml 11/26/24 21:00 11/28/24 08:31 Nystatin 100,000 Units/Ml Susp 5 Ml Oral.Susp PO Not Given QID GILBERTO Ondansetron HCl 4 mg 11/26/24 17:33 Ondansetron Inj 4 Mg/2 Ml Vial IV PUSH Q4H PRN Nausea Oxymetazoline HCl 1 spray 11/27/24 12:26 11/27/24 12:45 Oxymetazoline Hcl 0.05% Ant 15 Ml Btl (*Bkc) NASAL 1 spray Q12HR PRN Administration Congestion Pantoprazole Sodium 40 mg 11/27/24 09:00 11/28/24 08:36 Pantoprazole Sodium Iv 40 Mg Vial IV PUSH 40 mg QAM GILBERTO Administration Radiology Results: ITS Impressions Soft Tissue Neck CT 11/26/24 15:42 IMPRESSION: 2.3 cm soft tissue density mass at the left base of the tongue, decreased in size since prior examination. The previously described cervical lymphadenopathy is decreased/has resolved. Chest X-Ray 11/26/24 15:58 IMPRESSION: No acute cardiopulmonary process. Modified Barium Swallow 11/28/24 10:20 IMPRESSION: Laryngeal penetration without aspiration. Please correlate with speech pathologist findings and specific feeding recommendations. Labs Labs: Laboratory Results - last 24 hr 11/28/24 11/28/24 04:42 06:06 WBC 3.5 L RBC 3.44 L Hgb 10.7 L Hct 31.5 L MCV 91.6 MCH 31.1 MCHC 34.0 RDW 14.0 Plt Count 110 L MPV 9.8 Immature Gran % (Auto) 0.6 H Neut % (Auto) 83.6 H Lymph % (Auto) 8.9 L Grimes % (Auto) 6.6 Eos % (Auto) 0.0 Baso % (Auto) 0.3 Lymph # (Auto) 0.31 L Grimes # (Auto) 0.2 Eos # (Auto) 0.0 Baso # (Auto) 0.0 Abs Immat Gran (auto) 0.02 Absolute Neuts (auto) 2.9 Absolute Nucleated RBC 0.000 Nucleated RBC % 0.0 % Immature Plt Fraction 2.3 Sodium 140 Potassium 3.8 Chloride 109 H Carbon Dioxide 22 Anion Gap 9 BUN 27 H Creatinine 1.09 Estim Creat Clear Calc 62 Estimated GFR > 60 Glucose 129 H Calcium 7.5 L Magnesium 1.6 Total Bilirubin 0.5 AST 23 ALT 26 Alkaline Phosphatase 52 Total Protein 6.0 L Albumin 3.4 L Quality VTE Prophylaxis VTE prophylaxis: mechanical ordered
[2024-11-28] MEDS: MAGNESIUM SULF 2 GM/WATER 50ML 2 GM/50 ML BAG IVPB (12:00)
--- NOTE | 2024-11-28 14:07 | PCSTNOTE ---
Please refer to the Modified Barium Swallow Evaluation in the EMR. The pt was seen for a modified barium swallow evaluation due to recent difficulty swallowing after undergoing extensive radiation to his throat. Pt also just recently completed chemo. He was admitted due to dysphagia and dehydration. A Dobhoff feeding tube was present. Pt stated he had 25 teeth pulled prior to the radiation; otherwise, oral structures, i.e., labial and lingual, are WFL in regards to ROM and strength. Vocal quality was clear before testing. The patient was seated for a lateral view and presented with 5 ml trials of thin liquids via a spoon, pudding consistency barium via a spoon, a small piece of fruit cocktail via a spoon, and uncontrolled trials of thin liquids via a cup and a spoon. The oral stages were within functional limits, but harder solids were not tested due to the patient's refusal since he recently had 25 teeth removed. No residual, pocketing, or leakage occurred. During the pharyngeal stage, the following was exhibited: reduced laryngeal elevation as evidenced by laryngeal penetration during the swallow. The chin tuck slightly reduced the amount (of penetration), but it did not eliminate the occurrence. Pt lacked sensitivity to the laryngeal penetration as he required a verbal cue to cough/throat clear & then dry swallow, which did clear it from the laryngeal vestibule. Aspiration did not occur but risk is present. Impression: mild/moderate dysphagia due to laryngeal penetration (with thin liquids) that required a verbal cue to clear from the laryngeal vestibule. Recommendations: level 5 minced and moist diet with regular thin liquids with the chin tuck, small sips and bites, and clear throat and cough after each sip. OOB for meals or positioning completely upright is recommended. ST to see for dysphagia therapy for laryngeal elevation, and to prehab laryngeal adduction and tongue base retraction. Pt was educated regarding the potential dysphagia he may experience due to the extensive radiation he recently underwent. Thank you for this referral.
--- NOTE | 2024-11-28 16:57 | P.PNGI_ITS ---
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 neoplasm of tongue, unspecified Status: Acute Assessment and Plan: established with hem-onc and radiation oncologist (5) Dehydration: Code(s): E86.0 - Dehydration Status: Acute Assessment and Plan: treated (6) Thrush, oral: Code(s): B37.0 - Candidal stomatitis Status: Acute Subjective Date/time seen: 11/28/24 16:57 Interval history: DH tube removed as he is eating, still some odynophagia but overall better Review of Systems Review of Systems: All systems reviewed & are unremarkable except as noted in HPI and below Exam Const: General: comfortable and no acute distress HENMT: Face/Nose/Sinus: Normal nares present Mouth: Yes Abnormal oral and palatal mucosa present Eyes: General: appearance normal, both eyes and all related structures Neck: Neck: supple Resp: Effort & Inspection: normal respiratory effort Auscultation: clear to auscultation bilaterally Cardio: Rate: regular rate Rhythm: regular rhythm GI: Inspection: non-distended GI Palp: Yes Soft to palpation and No Tenderness to palpation present (GI) Auscultation: normal bowel sounds Skin: General skin exam: normal color and no rashes or lesions noted Neuro: Speech: normal speech Motor exam (neuro): 5/5 motor strength present throughout Extrem: General: normal to inspection and no edema Psych: Mental Status: mental status grossly normal Affect: normal affect Objective Data Vital Signs Vital Signs: Vital Signs - 24 hr 11/27/24 19:42 11/27/24 20:00 11/27/24 20:36 Temperature 98.1 F Pulse Rate 45 L 46 L Respiratory Rate 17 Blood Pressure 119/69 Pulse Oximetry 100 Oxygen Delivery Room Air 11/28/24 00:00 11/28/24 04:00 11/28/24 04:32 Temperature 97.9 F Pulse Rate 46 L 46 L 49 L Respiratory Rate 17 Blood Pressure 116/70 Pulse Oximetry 98 Oxygen Delivery 11/28/24 08:00 11/28/24 08:35 11/28/24 12:00 Temperature Pulse Rate 71 52 L Respiratory Rate Blood Pressure Pulse Oximetry Oxygen Delivery Room Air 11/28/24 13:38 Temperature 98.1 F Pulse Rate 55 L Respiratory Rate 18 Blood Pressure 126/66 Pulse Oximetry 99 Oxygen Delivery Intake/Output Intake/Output: Intake & Output 11/25/24 11/26/24 11/27/24 11/28/24 23:59 23:59 23:59 23:59 Intake Total 2100 2104 1999 Output Total 425 600 300 Balance 1675 1504 1700 Meds/Results Medications: Active Medications Generic Name Dose Route Start Last Admin Trade Name Freq PRN Reason Stop Dose Admin Dexamethasone Sodium Phosphate 4 mg 11/27/24 12:00 11/28/24 12:00 Dexamethasone Sod Phos Inj 4 Mg/Ml Vial IV PUSH 4 mg Q6HR GILBERTO Administration Dextrose 12.5 gm 11/26/24 17:38 Dextrose 50% 25 Gm/50 Ml Syringe IV PUSH PRN PRN Hypoglycemia Protocol Enoxaparin Sodium 40 mg 11/27/24 09:00 11/28/24 08:36 Enoxaparin 40 Mg/0.4 Ml Syringe SUB-Q 40 mg DAILY GILBERTO Administration Glucagon 1 mg 11/26/24 17:38 Glucagon For Inj 1 Mg Vial IM PRN PRN Hypoglycemia Protocol Glucose 15 gm 11/26/24 17:38 Glucose Oral Gel 15 Gm Of Glucse In 37.5 Gm Tube PO PRN PRN Hypoglycemia Protocol Sodium Chloride 1,000 mls @ 100 mls/hr 11/26/24 17:40 11/28/24 14:19 Normal Saline Iv IV CONT 100 mls/hr .Q10H GILBERTO Administration Dextrose 1,000 mls @ 100 mls/hr 11/26/24 17:38 Dextrose 5% 1,000 Ml IVPB PRN PRN Hypoglycemia Protocol Nystatin 5 ml 11/26/24 21:00 11/28/24 12:00 Nystatin 100,000 Units/Ml Susp 5 Ml Oral.Susp PO Not Given QID GILBERTO Ondansetron HCl 4 mg 11/26/24 17:33 Ondansetron Inj 4 Mg/2 Ml Vial IV PUSH Q4H PRN Nausea Oxymetazoline HCl 1 spray 11/27/24 12:26 11/27/24 12:45 Oxymetazoline Hcl 0.05% Ant 15 Ml Btl (*Bkc) NASAL 1 spray Q12HR PRN Administration Congestion Pantoprazole Sodium 40 mg 11/27/24 09:00 11/28/24 08:36 Pantoprazole Sodium Iv 40 Mg Vial IV PUSH 40 mg QAM GILBERTO Administration Radiology Results: ITS Impressions Soft Tissue Neck CT 11/26/24 15:42 IMPRESSION: 2.3 cm soft tissue density mass at the left base of the tongue, decreased in size since prior examination. The previously described cervical lymphadenopathy is decreased/has resolved. Chest X-Ray 11/26/24 15:58 IMPRESSION: No acute cardiopulmonary process. Modified Barium Swallow 11/28/24 10:20 IMPRESSION: Laryngeal penetration without aspiration. Please correlate with speech pathologist findings and specific feeding recommendations. Labs Labs: Laboratory Results - last 24 hr 11/28/24 11/28/24 04:42 06:06 WBC 3.5 L RBC 3.44 L Hgb 10.7 L Hct 31.5 L MCV 91.6 MCH 31.1 MCHC 34.0 RDW 14.0 Plt Count 110 L MPV 9.8 Immature Gran % (Auto) 0.6 H Neut % (Auto) 83.6 H Lymph % (Auto) 8.9 L [place] % (Auto) 6.6 Eos % (Auto) 0.0 Baso % (Auto) 0.3 Lymph # (Auto) 0.31 L [place] # (Auto) 0.2 Eos # (Auto) 0.0 Baso # (Auto) 0.0 Abs Immat Gran (auto) 0.02 Absolute Neuts (auto) 2.9 Absolute Nucleated RBC 0.000 Nucleated RBC % 0.0 % Immature Plt Fraction 2.3 Sodium 140 Potassium 3.8 Chloride 109 H Carbon Dioxide 22 Anion Gap 9 BUN 27 H Creatinine 1.09 Estim Creat Clear Calc 62 Estimated GFR > 60 Glucose 129 H Calcium 7.5 L Magnesium 1.6 Total Bilirubin 0.5 AST 23 ALT 26 Alkaline Phosphatase 52 Total Protein 6.0 L Albumin 3.4 L
--- NOTE | 2024-11-28 19:24 | WPDPN ---
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 - Malignant neoplasm of tongue, unspecified Status: Acute (2) Difficulty swallowing: Qualifiers: Dysphagia type: unspecified Qualified Code(s): R13.10 - Dysphagia, unspecified Code(s): R13.10 - Dysphagia, unspecified Status: Acute (3) Odynophagia: Code(s): R13.10 - Dysphagia, unspecified Status: Acute (4) Oral mucositis: Code(s): K12.30 - Oral mucositis (ulcerative), unspecified Status: Acute Plan 64 Y/O Male with malignant neoplasm of the tongue ,and improved dysphagia and odynophagia Patient is cleared from the ENT side and will need to follow up with his radiation oncologist for further treatment of his postradiation oral mucositis - supportive care and pain management. This includes maintaining good oral hygiene, using bland mouthwashes, avoiding irritants, and managing pain with topical anesthetics or systemic analgesics. Time Spent With Patient Time with patient: less than 15 minutes Subjective Date/time seen: 11/28/24 19:24 Interval history: Odynophagia Review of Systems Review of Systems: NGT tube was removed Patient is now able to tolerate soft diet with pain during swallowing All systems reviewed & are unremarkable except as noted in HPI and below Exam Const: General: cooperative, healthy appearing, comfortable, no acute distress, well developed, alert, awake and Physically active Orientation/consciousness: oriented to person, oriented to place, oriented to time and patient oriented x3 HENMT: Head: normocephalic and atraumatic Ears: external ears normal and EAC's normal Face/Nose/Sinus: Normal external nose present, Normal nares present, Abnormal mucous membranes and turbinates present and Abnormal nasal septum present deviated to the left Mouth: Yes lip normal Teeth and gingiva: gingiva normal Other: oral mucositis Neck: Neck: normal visual inspection Resp: Effort & Inspection: normal respiratory effort and able to speak in complete sentences Neuro: General: oriented to person, oriented to place, oriented to time and patient oriented x3 Objective Data Vital Signs Vital Signs: Vital Signs - 24 hr 11/27/24 19:42 11/27/24 20:00 11/27/24 20:36 Temperature 36.7 C Pulse Rate 45 L 46 L Respiratory Rate 17 Blood Pressure 119/69 Pulse Oximetry 100 Oxygen Delivery Room Air 11/28/24 00:00 11/28/24 04:00 11/28/24 04:32 Temperature 36.6 C Pulse Rate 46 L 46 L 49 L Respiratory Rate 17 Blood Pressure 116/70 Pulse Oximetry 98 Oxygen Delivery 11/28/24 08:00 11/28/24 08:35 11/28/24 12:00 Temperature Pulse Rate 71 52 L Respiratory Rate Blood Pressure Pulse Oximetry Oxygen Delivery Room Air 11/28/24 13:38 11/28/24 16:00 Temperature 36.7 C Pulse Rate 55 L 52 L Respiratory Rate 18 Blood Pressure 126/66 Pulse Oximetry 99 Oxygen Delivery Intake/Output Intake/Output: Intake & Output 11/25/24 11/26/24 11/27/24 11/28/24 23:59 23:59 23:59 23:59 Intake Total 2100 2104 2100 Output Total 425 600 300 Balance 1675 1504 1800 Meds/Results Medications: Active Medications Generic Name Dose Route Start Last Admin Trade Name Freq PRN Reason Stop Dose Admin Dexamethasone Sodium Phosphate 4 mg 11/27/24 12:00 11/28/24 17:15 Dexamethasone Sod Phos Inj 4 Mg/Ml Vial IV PUSH 4 mg Q6HR GILBERTO Administration Dextrose 12.5 gm 11/26/24 17:38 Dextrose 50% 25 Gm/50 Ml Syringe IV PUSH PRN PRN Hypoglycemia Protocol Enoxaparin Sodium 40 mg 11/27/24 09:00 11/28/24 08:36 Enoxaparin 40 Mg/0.4 Ml Syringe SUB-Q 40 mg DAILY GILBERTO Administration Glucagon 1 mg 11/26/24 17:38 Glucagon For Inj 1 Mg Vial IM PRN PRN Hypoglycemia Protocol Glucose 15 gm 11/26/24 17:38 Glucose Oral Gel 15 Gm Of Glucse In 37.5 Gm Tube PO PRN PRN Hypoglycemia Protocol Sodium Chloride 1,000 mls @ 100 mls/hr 11/26/24 17:40 11/28/24 14:19 Normal Saline Iv IV CONT 100 mls/hr .Q10H GILBERTO Administration Dextrose 1,000 mls @ 100 mls/hr 11/26/24 17:38 Dextrose 5% 1,000 Ml IVPB PRN PRN Hypoglycemia Protocol Nystatin 5 ml 11/26/24 21:00 11/28/24 17:15 Nystatin 100,000 Units/Ml Susp 5 Ml Oral.Susp PO Not Given QID GILBERTO Ondansetron HCl 4 mg 11/26/24 17:33 Ondansetron Inj 4 Mg/2 Ml Vial IV PUSH Q4H PRN Nausea Oxymetazoline HCl 1 spray 11/27/24 12:26 11/27/24 12:45 Oxymetazoline Hcl 0.05% Ant 15 Ml Btl (*Bkc) NASAL 1 spray Q12HR PRN Administration Congestion Pantoprazole Sodium 40 mg 11/27/24 09:00 11/28/24 08:36 Pantoprazole Sodium Iv 40 Mg Vial IV PUSH 40 mg QAM GILBERTO Administration Radiology Results: ITS Impressions Soft Tissue Neck CT 11/26/24 15:42 IMPRESSION: 2.3 cm soft tissue density mass at the left base of the tongue, decreased in size since prior examination. The previously described cervical lymphadenopathy is decreased/has resolved. Chest X-Ray 11/26/24 15:58 IMPRESSION: No acute cardiopulmonary process. Modified Barium Swallow 11/28/24 10:20 IMPRESSION: Laryngeal penetration without aspiration. Please correlate with speech pathologist findings and specific feeding recommendations. Labs Labs: Laboratory Results - last 24 hr 11/28/24 11/28/24 04:42 06:06 WBC 3.5 L RBC 3.44 L Hgb 10.7 L Hct 31.5 L MCV 91.6 MCH 31.1 MCHC 34.0 RDW 14.0 Plt Count 110 L MPV 9.8 Immature Gran % (Auto) 0.6 H Neut % (Auto) 83.6 H Lymph % (Auto) 8.9 L [place] % (Auto) 6.6 Eos % (Auto) 0.0 Baso % (Auto) 0.3 Lymph # (Auto) 0.31 L [place] # (Auto) 0.2 Eos # (Auto) 0.0 Baso # (Auto) 0.0 Abs Immat Gran (auto) 0.02 Absolute Neuts (auto) 2.9 Absolute Nucleated RBC 0.000 Nucleated RBC % 0.0 % Immature Plt Fraction 2.3 Sodium 140 Potassium 3.8 Chloride 109 H Carbon Dioxide 22 Anion Gap 9 BUN 27 H Creatinine 1.09 Estim Creat Clear Calc 62 Estimated GFR > 60 Glucose 129 H Calcium 7.5 L Magnesium 1.6 Total Bilirubin 0.5 AST 23 ALT 26 Alkaline Phosphatase 52 Total Protein 6.0 L Albumin 3.4 L
[2024-11-28] MEDS: traZODone HCL 50 MG TABLET 100 MG PO (20:00)
[2024-11-29] VITALS: PULSE 43
[2024-11-29 04:00] VITALS: PULSE 43
[2024-11-29 05:08] VITALS: BP 117/83; PULSE 47; RESP 20; TEMP 36.4; O2SAT 99
[2024-11-29 05:15] LABS: Basophils Percent Auto 0.2 % (0.2-1.2); Hematocrit 26.7 % (42.0-52.0); Hemoglobin 9.1 g/dL (14.0-18.0); Immature Granulocyte Absolute 0.06 K/mm3 (0.00-0.031); Immature Granulocyte Percent A 1.1 % (0-0.5); Immature Platelet Fraction Pct 3.8 % (0.9-11.2); Lymphocytes Absolute Auto 0.26 K/mm3 (0.9-3.2); Lymphocytes Percent Auto 4.8 % (18.3-44.2); Mean Corpuscular HGB Conc 34.1 g/dl (32-36); Mean Corpuscular Hemoglobin 31.2 pg (26-34); Mean Corpuscular Volume 91.4 fl (80-100); Mean Platelet Volume 10.2 fl (7.4-10.4); Monocytes Absolute Auto 0.3 K/mm3 (0.1-0.6); Monocytes Percent Auto 6.3 % (2.6-8.5); Neutrophils Absolute Auto 4.7 K/mm3 (1.3-6.7); Neutrophils Percent Auto 87.6 % (45.5-73.1); Platelet Count Result 91 k/mm3 (150-375); Red Blood Count 2.92 M/mm3 (4.6-6.20); Red Cell Distribution Width 14.1 % (11.5-14.5); White Blood Count 5.4 K/mm3 (4.5-10.0)
[2024-11-29 05:26] LABS: Alanine Aminotransferase 27 U/L (6-50); Albumin Level 3.3 g/dL (3.5-5.1); Alkaline Phosphatase 50 U/L (38-126); Anion Gap 7 mmol/L (4-12); Aspartate Amino Transferase 22 U/L (17-59); Bilirubin,Total 0.4 mg/dL (0.2-1.3); Blood Urea Nitrogen 28 mg/dL (9-20); Calcium 7.3 mg/dL (8.4-10.2); Carbon Dioxide 23 mmol/L (22-30); Chloride 109 mmol/L (98-107); Estimated CRCL calculation 67 ml/min; Estimated Glomerular Filt Rate > 60; Glucose 131 mg/dL (65-110); Magnesium 1.8 mg/dL (1.6-2.3); Potassium 3.6 mmol/L (3.4-5.0); Sodium 139 mmol/L (137-145)
--- NOTE | 2024-11-29 05:45 | P.CDI_ITS ---
CDI Query Clarification Request BMI: 26.6 Nutritional Diagnostic Statement: Please refer to the comprehensive nutrition assessment for further information. 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 Please specify severity if known: * Mild * Moderate * Severe * Other/Unknown <Coral May RN - Last Filed: 11/29/24 07:05> Clarified Diagnosis Clarified Diagnosis: Severe <Lucas Singh MD - Last Filed: 11/29/24 07:47>
[2024-11-29] MEDS: dexAMETHasone SOD PHOS INJ 4 MG/ML VIAL IV PUSH ×2 (06:07→12:58)
[2024-11-29 08:00] VITALS: PULSE 46
[2024-11-29] MEDS: PANTOPRAZOLE SODIUM IV 40 MG VIAL IV PUSH (08:06)
--- NOTE | 2024-11-29 08:52 | P.PNIM_ITS ---
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 Royal, Radiation Onc Dr. 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 (2) Difficulty swallowing: Qualifiers: Dysphagia type: unspecified Qualified Code(s): R13.10 - Dysphagia, unspecified Code(s): R13.10 - Dysphagia, unspecified Status: Acute Assessment and Plan: * Etiology side effect of radiation versus thrush versus metastasis * Speech therapy evaluation has been consulted. * CT soft tissue neck showing a 2.3 cm mass at the left tongue base that is decreased in size. Cervical lymphadenopathy that was previously present is also resolved now. * NPO, GI consulted * Monitor (3) Dehydration: Code(s): E86.0 - Dehydration Status: Acute Assessment and Plan: continue IVF (4) Esophageal thrush: Code(s): B37.81 - Candidal esophagitis Status: Suspected Assessment and Plan: * One such possible etiology of exacerbation as patient is receiving chemotherapy and radiation. * Will continue nystatin * While awaiting GI eval (5) History of appendectomy: Code(s): Z90.49 - Acquired absence of other specified parts of digestive tract Status: Chronic Assessment and Plan: * history of as child Plan Bradycardia EKG Electrolyte replaced Cardiology eval noted Cisplatin related 14-day event monitor Cardiology consulted Hypokalemia and Hypomagnesemia Replaced and monitor DVT prophylaxis on Sq Lovenox Awaiting patient tolerating diet and clearance of GI and ENT Subjective Date/time seen: 11/29/24 08:52 Review of Systems 2 Review of Systems: All systems reviewed & are unremarkable except as noted in HPI and below Exam Const: General: comfortable and no acute distress Other: sitting in high Kent's position in the stretcher in no acute distress is a 64-year-old gentleman. He appears of normal body stature. Current oxygen saturations normal. HENMT: Face/Nose/Sinus: Normal nares present and no epistaxis Mouth: Yes dry mucous membranes and Yes Abnormal oral and palatal mucosa present Other: Patient's soft palate and posterior oropharynx appears red, nonedematous with patent oral airway. There does not appear to be any coating on the tongue that resembles thrush, however there is an appearance of redness. I am unsure if this is due to patient's radiation therapy or if he could be developing a degree of thrush. Uvula present without midline shift. No visible tonsils. Mucosa appears tacky and dry. No ulcerative lesions. Eyes: General: appearance normal, both eyes and all related structures Neck: Neck: supple and no JVD Lymphatic: lymphadenopathy not noted Other: No appreciable lymphadenopathy. Resp: Effort & Inspection: normal respiratory effort Auscultation: clear to auscultation bilaterally Cardio: Rate: regular rate Rhythm: regular rhythm Heart sounds: no gallops, no murmurs and no rubs GI: Inspection: non-distended Auscultation: normal bowel sounds Skin: General skin exam: normal color, no rashes or lesions noted, no erythema, No lesion and No rashes Lesions: no lesions noted Rashes: no rashes noted Wounds: no wounds Neuro: General: gait normal Speech: normal speech Motor exam (neuro): 5/5 motor strength present throughout and Normal motor muscle tone present throughout Sensory Exam: normal sensation Extrem: General: normal to inspection, no edema and no pedal edema Other: Freely movable and full range of motion actively in all extremities. Psych: Mental Status: mental status grossly normal Affect: normal affect Objective Data Vital Signs Vital Signs: Vital Signs - 24 hr 11/28/24 12:00 11/28/24 13:38 11/28/24 16:00 Temperature 98.1 F Pulse Rate 52 L 55 L 52 L Respiratory Rate 18 Blood Pressure 126/66 Pulse Oximetry 99 Oxygen Delivery 11/28/24 20:00 11/28/24 20:00 11/28/24 21:07 Temperature 98.1 F Pulse Rate 58 L 58 L 50 L Respiratory Rate 20 20 Blood Pressure 113/65 Pulse Oximetry 98 98 Oxygen Delivery Room Air 11/29/24 00:00 11/29/24 04:00 11/29/24 05:08 Temperature 97.6 F Pulse Rate 43 L 43 L 47 L Respiratory Rate 20 Blood Pressure 117/83 Pulse Oximetry 99 Oxygen Delivery Intake/Output Intake/Output: Intake & Output 11/26/24 11/27/24 11/28/24 11/29/24 23:59 23:59 23:59 23:59 Intake Total 2100 2104 3021.7 250 Output Total 425 600 700 150 Balance 1675 1504 2321.7 100 Meds/Results Medications: Active Medications Generic Name Dose Route Start Last Admin Trade Name Freq PRN Reason Stop Dose Admin Dexamethasone Sodium Phosphate 4 mg 11/27/24 12:00 11/29/24 06:07 Dexamethasone Sod Phos Inj 4 Mg/Ml Vial IV PUSH 4 mg Q6HR GILBERTO Administration Dextrose 12.5 gm 11/26/24 17:38 Dextrose 50% 25 Gm/50 Ml Syringe IV PUSH PRN PRN Hypoglycemia Protocol Enoxaparin Sodium 40 mg 11/27/24 09:00 11/28/24 08:36 Enoxaparin 40 Mg/0.4 Ml Syringe SUB-Q 40 mg DAILY GILBERTO Administration Glucagon 1 mg 11/26/24 17:38 Glucagon For Inj 1 Mg Vial IM PRN PRN Hypoglycemia Protocol Glucose 15 gm 11/26/24 17:38 Glucose Oral Gel 15 Gm Of Glucse In 37.5 Gm Tube PO PRN PRN Hypoglycemia Protocol Sodium Chloride 1,000 mls @ 100 mls/hr 11/26/24 17:40 11/28/24 23:32 Normal Saline Iv IV CONT 100 mls/hr .Q10H GILBERTO Administration Dextrose 1,000 mls @ 100 mls/hr 11/26/24 17:38 Dextrose 5% 1,000 Ml IVPB PRN PRN Hypoglycemia Protocol Nystatin 5 ml 11/26/24 21:00 11/29/24 08:02 Nystatin 100,000 Units/Ml Susp 5 Ml Oral.Susp PO Not Given QID GILBERTO Ondansetron HCl 4 mg 11/26/24 17:33 Ondansetron Inj 4 Mg/2 Ml Vial IV PUSH Q4H PRN Nausea Oxymetazoline HCl 1 spray 11/27/24 12:26 11/27/24 12:45 Oxymetazoline Hcl 0.05% Ant 15 Ml Btl (*Bkc) NASAL 1 spray Q12HR PRN Administration Congestion Pantoprazole Sodium 40 mg 11/27/24 09:00 11/29/24 08:06 Pantoprazole Sodium Iv 40 Mg Vial IV PUSH 40 mg QAM GILBERTO Administration Trazodone HCl 100 mg 11/28/24 19:44 11/28/24 20:00 Trazodone Hcl 50 Mg Tablet PO 100 mg HS PRN Administration Insomnia Radiology Results: ITS Impressions Soft Tissue Neck CT 11/26/24 15:42 IMPRESSION: 2.3 cm soft tissue density mass at the left base of the tongue, decreased in size since prior examination. The previously described cervical lymphadenopathy is decreased/has resolved. Chest X-Ray 11/26/24 15:58 IMPRESSION: No acute cardiopulmonary process. Modified Barium Swallow 11/28/24 10:20 IMPRESSION: Laryngeal penetration without aspiration. Please correlate with speech pathologist findings and specific feeding recommendations. Labs Labs: Laboratory Results - last 24 hr 11/29/24 04:40 WBC 5.4 RBC 2.92 L Hgb 9.1 L Hct 26.7 L MCV 91.4 MCH 31.2 MCHC 34.1 RDW 14.1 Plt Count 91 L MPV 10.2 Immature Gran % (Auto) 1.1 H Neut % (Auto) 87.6 H Lymph % (Auto) 4.8 L [place] % (Auto) 6.3 Eos % (Auto) 0.0 Baso % (Auto) 0.2 Lymph # (Auto) 0.26 L [place] # (Auto) 0.3 Eos # (Auto) 0.0 Baso # (Auto) 0.0 Abs Immat Gran (auto) 0.06 H Absolute Neuts (auto) 4.7 Absolute Nucleated RBC 0.000 Nucleated RBC % 0.0 % Immature Plt Fraction 3.8 Sodium 139 Potassium 3.6 Chloride 109 H Carbon Dioxide 23 Anion Gap 7 BUN 28 H Creatinine 1.00 Estim Creat Clear Calc 67 Estimated GFR > 60 Glucose 131 H Calcium 7.3 L Magnesium 1.8 Total Bilirubin 0.4 AST 22 ALT 27 Alkaline Phosphatase 50 Total Protein 6.0 L Albumin 3.3 L Quality VTE Prophylaxis VTE prophylaxis: mechanical ordered
[2024-11-29 12:00] VITALS: PULSE 43
--- NOTE | 2024-11-29 14:19 | P.DS_ITS ---
DS: Admitting Diagnosis Discharge Date 11/29/2024 Admitting Diagnosis Difficulty swallowing DS: Discharge Diagnosis Discharge Diagnosis (1) Tongue malignant neoplasm: Code(s): C02.9 - Malignant neoplasm of tongue, unspecified Status: Acute Assessment and Plan: * Oncologist Dr. Royal, Radiation Onc Dr. 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 (2) Difficulty swallowing: Qualifiers: Dysphagia type: unspecified Qualified Code(s): R13.10 - Dysphagia, unspecified Code(s): R13.10 - Dysphagia, unspecified Status: Acute Assessment and Plan: Resolved * Etiology side effect of radiation versus thrush versus metastasis * Speech therapy evaluation has been consulted. * CT soft tissue neck showing a 2.3 cm mass at the left tongue base that is decreased in size. Cervical lymphadenopathy that was previously present is also resolved now. * GI consulted * Monitor (3) Dehydration: Code(s): E86.0 - Dehydration Status: Acute Assessment and Plan: Resolved continue IVF (4) Esophageal thrush: Code(s): B37.81 - Candidal esophagitis Status: Suspected Assessment and Plan: * One such possible etiology of exacerbation as patient is receiving chemotherapy and radiation. * Will continue nystatin (5) History of appendectomy: Code(s): Z90.49 - Acquired absence of other specified parts of digestive tract Status: Chronic Assessment and Plan: * history of as child Plan Bradycardia EKG Electrolyte replaced Cardiology eval noted Cisplatin related 14-day event monitor Cardiology consulted Hypokalemia and Hypomagnesemia Replaced and monitor DVT prophylaxis on Sq Lovenox Awaiting patient tolerating diet and clearance of GI and ENT DS: Summary Hospital Course Hospital Course: very pleasant 64-year-old male patient with significant history of tongue cancer who is being treated by Dr. Royal for Chemo and radiation, who comes to the emergency room complaints of having difficulty swallowing. Patient states he last had his last chemo on Thursday of this past week, now 6 days ago, and his last radiation was on Thursday. 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 Patient states that monitor about November 23 he started to have some increased difficulty swallowing his secretions. He feels as though he has to spit all the time because it does not go all the way down. He denies any choking episode, fevers or actual vomiting. He states he does have occasional dyspnea. he has been given viscous lidocaine by Radiation Oncology to help with soreness in his oropharynx that he does continue to exhibit. Patient states today it became worse and they sent him to the emergency room for hydration. Of note patient states he has no other past medical history, has been very well and sees his primary care provider every 3 months. He does not take any medications on a daily basis and his only previous surgery was an appendectomy as a child. He does not partake of nicotine in any form he has an occasional drink of alcohol with the last being approximately 5 months ago and he denies any drug use. Patient is and resides at home with his spouse. In the emergency room workup consisted of labs and imaging. Labs including CBC that was unremarkable, CMP with noted potassium of 3.2 who was able to take oral replacement, urinalysis showing 2+ protein, specific gravity of greater than 1.045 and 1+ ketones signifying dehydration. CT soft tissue of neck was performed that shows a 2.3 cm mass at the left base of his tongue that is decrea sed in size and cervical lymph nodes that were previously seen are now resolved. Chest x-ray negative for any acute abnormalities. Patient maintaining his oxygen saturations without any required supplemental oxygen. ER provider spoke with GI Dr. Call who agrees to consult. Patient will likely need EGD to further diagnose. ER provider did have concern for potential thrush and patient was started on nystatin. He is being admitted at this time for further evaluation from GI and definitive treatment. I assumed care on 0 11/29/2024 (On the day of discharge) Patient is cleared from the ENT side and needs to follow up with his radiation oncologist for further management of his post radiation oral mucositis. Recommend supportive care and pain management that includes maintaining good oral hygiene, using gland mouth washes, avoiding irritants and managing pain with the topical anesthetics or systemic analgesics. DH tube was removed and patient is eating and needs to follow-up with his oncologist and PCP within a week upon discharge. Patient also was seen by Cardiology due to bradycardia. As per Cardiology cisplatin can be 1 of the culprit causing bradycardia. Advised to have 30 day event monitor and follow up with Cardiology as outpatient. As per Cardiology no need for pacemaker for now Status at Discharge Cognitive/behavioral status at discharge: Stable Time Spent with Patient Time attestation: Total time spent providing and/or coordinating discharge services: 45 minute Exam Const: Other: sitting in high Kent's position in the stretcher in no acute distress is a 64-year-old gentleman. He appears of normal body stature. Current oxygen saturations normal. HENMT: Other: Patient's soft palate and posterior oropharynx appears red, nonedematous with patent oral airway. There does not appear to be any coating on the tongue that resembles thrush, however there is an appearance of redness. I am unsure if this is due to patient's radiation therapy or if he could be developing a degree of thrush. Uvula present without midline shift. No visible tonsils. Mucosa appears tacky and dry. No ulcerative lesions. Neck: Other: No appreciable lymphadenopathy. Extrem: Other: Freely movable and full range of motion actively in all extremities. DS: Data Data Completed and Pending Labs on day of discharge: Labs from last 24 hours 11/29/24 04:40 WBC 5.4 RBC 2.92 L Hgb 9.1 L Hct 26.7 L MCV 91.4 MCH 31.2 MCHC 34.1 RDW 14.1 Plt Count 91 L MPV 10.2 Immature Gran % (Auto) 1.1 H Neut % (Auto) 87.6 H Lymph % (Auto) 4.8 L [place] % (Auto) 6.3 Eos % (Auto) 0.0 Baso % (Auto) 0.2 Lymph # (Auto) 0.26 L [place] # (Auto) 0.3 Eos # (Auto) 0.0 Baso # (Auto) 0.0 Abs Immat Gran (auto) 0.06 H Absolute Neuts (auto) 4.7 Absolute Nucleated RBC 0.000 Nucleated RBC % 0.0 % Immature Plt Fraction 3.8 Sodium 139 Potassium 3.6 Chloride 109 H Carbon Dioxide 23 Anion Gap 7 BUN 28 H Creatinine 1.00 Estim Creat Clear Calc 67 Estimated GFR > 60 Glucose 131 H Calcium 7.3 L Magnesium 1.8 Total Bilirubin 0.4 AST 22 ALT 27 Alkaline Phosphatase 50 Total Protein 6.0 L Albumin 3.3 L Imaging Radiologist's impression: ITS Impressions Soft Tissue Neck CT 11/26/24 15:42 IMPRESSION: 2.3 cm soft tissue density mass at the left base of the tongue, decreased in size since prior examination. The previously described cervical lymphadenopathy is decreased/has resolved. Chest X-Ray 11/26/24 15:58 IMPRESSION: No acute cardiopulmonary process. Modified Barium Swallow 11/28/24 10:20 IMPRESSION: Laryngeal penetration without aspiration. Please correlate with speech pathologist findings and specific feeding recommendations. Discharge Plan Discharge Attending physician on discharge: Lucas Singh Consulting providers: Maxx Mcknight; Jasmine Medina; Lona Robertson; Flex Royal Discharging Clinician: Lucas Singh Anticipated Discharge Date/Time: 11/29/24 14:24 Patient Disposition: Home Activity: as tolerated Diet: as tolerated Discharge Instructions: Patient will be discharged with the 30 day event monitor and needs to follow-up with the Cardiology. Patient also needs to follow-up with the oncologist and radiation oncologist. Discharged with prednisone 40 mg p.o. q.d. for 3 days ED precautions given. Check blood pressure 1 to 2 times a day. Record and bring into your doctor for review. Call your doctor if your blood pressure is greater than 180/110 or less than 90/45. Walk with cane or other assist device. Take precautions to avoid falls. Rise slowly from a lying or sitting position. Pause before standing or walking. Contact your doctor or call 911 and come to the Emergency Room if you have any type of trauma, lightheadedness with standing or other worrisome symptoms. Avoid NSAIDs (ibuprofen, naproxen, Aleve). Tylenol is safe to take. Follow-up with your primary care provider in 1-2 weeks. Please call for appointment. Follow-up with Cardiology in 2-4 weeks. Please call for an appointment. Thank you for using [facility] for your health care needs. Patient Instructions: Antibiotic Form Patient Language: Slovenian Stand Alone Forms: General Discharge Information Follow-up/Referrals: Lona Robertson MD [Physician] - Flex Royal MD [Physician] - Loni,MD Gogo [Primary Care Provider] - Jasmine Medina MD [Physician] - (Patient needs to follow up for bradycardia. Discharged with event monitor) Discharge Medications: New prednisone 50 mg tablet 40 mg PO DAILY 3 Days Qty: 3 0RF Continued ondansetron 8 mg tablet,disintegrating 8 mg PO Q8H PRN (Reason: nausea and vomiting) Patient Comments: . Rx Instructions: 1st dose 1-2 hr before radiation Other Ambulatory Orders: [place] cardiac event monitor (Routine) Timeframe: 1 Month Location: Determined by Patient Ordered By: Lucas Singh Date of admission: 11/27/24 07:44 Primary Care Provider: Loni,Gogo Admitting Provider: Elizabeth Lindsay Attending physician on admission: Elizabeth Lindsay Condition: Stable
== END 2024-11-29 14:45 | disposition home or self-care (01) | DRG 368 ==
LOC: ANHED 17:25 → ANH2MED 18:19
PROVIDERS: Admitting Provider Internal Medicine; Emergency Provider Physician Assistant; PCP Internal Medicine; Visit Provider General Practice
DX: B37.81 Candidal esophagitis (principal); E43 Unspecified severe protein-calorie malnutrition; K12.33 Oral mucositis (ulcerative) due to radiation; B37.0 Candidal stomatitis; E86.0 Dehydration; C01 Malignant neoplasm of base of tongue; E87.6 Hypokalemia; E83.42 Hypomagnesemia; R13.10 Dysphagia, unspecified; R00.1 Bradycardia, unspecified; Z68.26 Body mass index [BMI] 26.0-26.9, adult
CPT/HCPCS: 36415; 70491; 71046; 80053; 81001; 83605; 83690; 83735; 85025; 85055; 92526; 92611; 93005; 96365; 96366; 96375; 99285; A9270; G0378; J1100; J1650; J1741; J2060; J2470; J3475; J3480; J7030; J7040; Q9967

== ENCOUNTER 2025-01-10 14:05 | Outpatient (CLI) | payer MEDICARE, SELFPAY ==
--- NOTE | ~2025-01-10 | PE_ITS ---
EXAMINATION: PET skull to mid thigh DATE: 01/10/2025 15:55 INDICATION: Head and neck cancer TECHNIQUE: Blood glucose level was 92 mg/dL. 10.618 mCi of 18-fluorodeoxyglucose (18-FDG) was adminis tered i.v. Low dose computed tomography (CT) images were acquired from the base of the brain to the p roximal thighs for attenuation correction and anatomic localization. Positron emission tomography (PE T) images were acquired in the same distribution beginning 50 minutes after injection. Images includi ng fused PET/CT images were reconstructed in axial, coronal, and sagittal planes. Automated exposure control technique was employed. The dose-length product was 1012.55mGy-cm. COMPARISON: Neck CT studies dated 11/26/2024 and 07/14/2024 FINDINGS: Head/neck: There is symmetric increased activity in the oral cavity and ocular muscles without CT correlate, lik daniel physiologic. No asymmetric or abnormally increased uptake in the region of the left base of the t ongue where there is mild asymmetric increased soft tissue density more recent CT study dated but significantly decreased since earlier CT dated 07/14/2024 consistent with interval response to treatment. No pathologically enlarged cervical lymphadenopathy or suspicious foci of increased FDG up take in the visualized head or neck. Chest: Lungs are clear with no suspicious pulmonary nodules, pneumonia, pulmonary edema or pleural effusion. Heart size is normal. Small of atherosclerotic coronary artery calcific location. No pericardial eff usion. Thoracic aorta is normal in caliber. No pathologically enlarged thoracic lymphadenopathy. Abdomen/pelvis/proximal thighs: Physiologic renal accumulation and excretion of FDG activity in the kidneys, bladder and along portio ns of ureters. Normal degree and heterogenous pattern of increased uptake throughout the liver withou t radiologic correlate or dominant FDG avid lesion. The gallbladder, pancreas, spleen and bilateral a drenal glands are normal. Mild uptake scattered throughout the bowels without radiologic correlate, a lso likely physiologic. Prostatomegaly measuring 4.6 x 3.3 cm. No other abnormal foci of increased FD G uptake or pathologically enlarged lymphadenopathy in the abdomen, pelvis or proximal thighs. Musculoskeletal: There is increased activity at the right hand and forearm likely related to extravasated activity fro m the site of injection at the right hand. Mild to moderate spondylosis in the cervical, thoracic and lumbar spine. No suspicious lytic, blastic or abnormally FDG avid bone lesions. IMPRESSION: 1. No abnormal increased FDG uptake at the left base of the tongue where there has been significant d ecrease in size of a region of soft tissue density since 07/14/2024 consistent with response to treat ment of reported squamous cell carcinoma. 2. No lesion suspicious for metastatic disease in the head and neck, chest, abdomen or pelvis. 3. Mild prostatomegaly. Reviewed, dictated and finalized at location B. IMPRESSION: 1. No abnormal increased FDG uptake at the left base of the tongue where there has been significant decrease in size of a region of soft tissue density since 07/14/2024 consistent with response to treatment of reported squamous cell carc inoma. 2. No lesion suspicious for metastatic disease in the head and neck, chest, abd omen or pelvis. 3. Mild prostatomegaly.
[2025-01-10 14:37] LABS: Glucose Point of Care 92 mg/dl (65-105)
--- OUTSIDE RECORDS SUMMARY | 2025-01-10 14:55 | XMS_ITS | CONTINUITY OF CARE DOCUMENT ---
Author Name bettina dunbar Address Unknown Organization [facility] Address [address] [place] [address] Phone [phone] Care Team Providers [employer] Professor Name Role Phone Pankaj Bravo MD Unavailable PHYLLIS HILLMAN MD Unavailable [phone] PHYLLIS HILLMAN MD Unavailable [phone] INSURANCE PROVIDERS Payer name Policy type / Coverage type [place] red green party ID [facility] [employer] insurance company [id number]
--- OUTSIDE RECORDS SUMMARY | 2025-01-10 14:56 | XMS_ITS | Data Portability ---
Author Organization [facility] [employer], [facility] Address [address] [place] [address] Care Team Providers Care Bag Bleacher Name Role Phone TANNER MADISON Primary Care Provider [phone] TANNER MADISON Referring Provider Assessment Encounter Date Assessment Date Assessment LastModified by Organization Details LastModified Time 03/10/2023 03/10/2023 Mr. Green is a 62YO male with PMH back pain presents to the office for vertigo. Patient reports he has had vertigo for many years which is worse in the last 2 months. [email or web address] Not available 03/10/2023 16:27:57 Plan of Treatment Reminders Order Date Submit Date Provider Last Modified By Organization Details Last Modified Time Details Appointments None recorded . Lab PSA, serum or plasma 2022 023 MARATHON [facility], [address], [place], [address], 3 16:34:01 CBC 2022 023 MARATHON [facility], [address], [place], [address], 3 16:33:58 CMP, serum or plasma 2022 023 MARATHON [facility], [address], [place], [address], 3 16:33:59 lipid panel, serum 2022 023 [facility], [address], [place], [address], 3 16:34:00 Referral pain manageme nt referral 2022 023 JONARamona Lafleur DO ([facility]), [address], [address], [place], [address], 3 08:10:[address] referral 2022 023 riley Chou MD, [address], [address], [place], [address], 3 07:59:58 dermatol ogist referral 2022 023 ELIZABETH Negron MD, [address], [address], [place], [address], 3 08:05:19 Procedures None recorded . Surgeries None recorded . Imaging None recorded . Medication Orders omeprazo le 40 mg capsule, delayed release 2022 023 [email or web address] [facility] [employer], [address] [facility], [address], [place], [address], 4 09:49:18 meclizin e 25 mg tablet 2022 023 [email or web address] [facility] [employer], [address] [facility], [address], [place], [address], 4 09:49:24 Patient TargetsNo targets recorded. 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 Referral for Screening for malignant neoplasm of colon Referring Physician: Tanner Madison [facility], Encounter Date: 09/17/2022 Pain Management Referral for Chronic low back pain Referring Physician: Tanner Madison [facility], Encounter Date: 09/17/2022 Table Cover Folder Referral for S kin lesion Referring Physician: Tanner Madison [facility], Encounter Date: 09/17/2022 Results Created Date Observation Date Name Description Value Unit Range Abnormal Flag Note LastModifiedBy Organization Detail LastModifiedTime 10/04/1910/03/2022 CBC W/ AUTOD IFF, COMPL ETE BLOOD COUNT WBC 5.6 K/uL 3.6-10 .0 Not Available [facility] [address] [place], [address], 10/03/2022 16:33:58 10/04/19 23 10/03/2022 CBC W/ AUTOD IFF, COMPL ETE BLOOD COUNT nucleated RBC 0.10 % 0.00-2 .00 Not Available [facility] [address] [place], [address], 10/03/2022 16:33:58 10/04/19 23 10/03/2022 CBC W/ AUTOD IFF, COMPL ETE BLOOD COUNT RBC 5.06 M/uL 4.10-5 .80 Not Available [facility] [address], [place], [address], 10/03/2022 16:33:58 10/04/19 23 10/03/2022 CBC W/ AUTOD IFF, COMPL ETE BLOOD COUNT HGB 15.6 g/dL 13.2-1 7.0 Not Available [facility], [place], [address], 10/03/2022 16:33:58 10/04/19 23 10/03/2022 CBC W/ AUTOD IFF, COMPL ETE BLOOD COUNT hematocrit 45.30 % 37.00- 51.00 Not Available [facility], [place], [address], 10/03/2022 16:33:58 10/04/19 23 10/03/2022 CBC W/ AUTOD IFF, COMPL ETE BLOOD COUNT MCV 89.6 fL 80.0-9 9.0 Not Available [facility], [place], [address], 10/03/2022 16:33:58 10/04/19 23 10/03/2022 CBC W/ AUTOD IFF, COMPL ETE BLOOD COUNT MCH 30.9 pg 27.0-3 3.0 Not Available [facility], [place], [address], 10/03/2022 16:33:58 10/04/19 23 10/03/2022 CBC W/ AUTOD IFF, COMPL ETE BLOOD COUNT MCHC 34.5 g/dL 32.0-3 6.0 Not Available [facility] [address] [place] [address] [address], [place], [address], 10/03/2022 16:33:58 10/04/19 23 10/03/2022 CBC W/ AUTOD IFF, COMPL ETE BLOOD COUNT platelets 179 K/uL 140-44 0 Not Available [facility], [place], [address], 10/03/2022 16:33:58 10/04/19 23 10/03/2022 CBC W/ AUTOD IFF, COMPL ETE BLOOD COUNT RDW 13.9 % 11.0-1 5.0 Not Available [facility], [place], [address], 10/03/2022 16:33:58 10/04/19 23 10/03/2022 CBC W/ AUTOD IFF, COMPL ETE BLOOD COUNT MPV 7.9 fL 7.4-10 .4 Not Available [facility], [place], [address], 10/03/2022 16:33:58 10/04/19 23 10/03/2022 CBC W/ AUTOD IFF, COMPL ETE BLOOD COUNT neutrophil, % 57.6 % Not Available [facility] [address] [place], [place] [address], [place], [address], 10/03/2022 16:33:58 10/04/19 23 10/03/2022 CBC W/ AUTOD IFF, COMPL ETE BLOOD COUNT lymphocyte % 29.0 % Not Available [facility] [address] [place] [address] [address], [place], [address], 10/03/2022 16:33:58 10/04/19 23 10/03/2022 CBC W/ AUTOD IFF, COMPL ETE BLOOD COUNT monocyte % 10.2 % Not Available [facility], [place], [address], 10/03/2022 16:33:58 10/04/19 23 10/03/2022 CBC W/ AUTOD IFF, COMPL ETE BLOOD COUNT eosinophil % 2.5 % Not Available [facility] [address] [place] [address] [address], [place], [address], 10/03/2022 16:33:58 10/04/19 23 10/03/2022 CBC W/ AUTOD IFF, COMPL ETE BLOOD COUNT basophil % 0.7 % Not Available [facility] [address], [place], [address], 10/03/2022 16:33:58 10/04/19 23 10/03/2022 CBC W/ AUTOD IFF, COMPL ETE BLOOD COUNT neutrophil, # 3.2 K/uL 1.5-7. 5 Not Available [facility], [place], [address], 10/03/2022 16:33:58 10/04/19 23 10/03/2022 CBC W/ AUTOD IFF, COMPL ETE BLOOD COUNT lymphocyte # 1.6 K/uL 0.8-4. 0 Not Available [facility] [address] [place], [place] [address], [place], [address], 10/03/2022 16:33:58 10/04/19 23 10/03/2022 CBC W/ AUTOD IFF, COMPL ETE BLOOD COUNT monocyte # 0.6 K/uL 0.1-1. 0 Not Available [facility] [address] [place] [address] [address], [place], [address], 10/03/2022 16:33:58 10/04/19 23 10/03/2022 CBC W/ AUTOD IFF, COMPL ETE BLOOD COUNT eosinophil # 0.1 K/uL 0.1-1. 0 Not Available [facility] [address] [place] [address] [address], [place], [address], 10/03/2022 16:33:58 10/04/19 23 10/03/2022 CBC W/ AUTOD IFF, COMPL ETE BLOOD COUNT basophil # 0.0 K/uL 0.0-0. 2 Not Available [facility] [address] [place] [address] [address], [place], [address], 10/03/2022 16:33:58 10/04/19 23 10/03/2022 CMP, COMPR EHENS KAILEY METAB OLIC PANEL glucose 93 mg/dL 70-100 Not Available [facility] [address], [place], [address], 10/03/2022 16:33:59 10/04/19 23 10/03/2022 CMP, COMPR EHENS KAILEY METAB OLIC PANEL BUN 16 mg/dL 7-25 Not Available [facility] [address] [place], [address], 10/03/2022 16:33:59 10/04/19 23 10/03/2022 CMP, COMPR EHENS KAILEY METAB OLIC PANEL creatinine 0.9 mg/dL 0.6-1. 3 Not Available [facility] [address] [facility] [address] [place], [address], 10/03/2022 16:33:59 10/04/19 23 10/03/2022 CMP, COMPR EHENS KAILEY METAB OLIC PANEL BUN/creatini ne ratio 17.98 calc Not Available [facility] [address], [place], [address], 10/03/2022 16:33:59 10/04/19 23 10/03/2022 CMP, COMPR EHENS KAILEY METAB OLIC PANEL eGFR 111 mL/mi n/1.7 3m2 >60 THREE CONSE CUTIV E VALUE S <60 mL/mi n COULD BE INDIC ATIVE OF KIDNE Y DISEA SE. Not Available [facility] [address] [facility] [address], [place], [address], 10/03/2022 16:33:59 10/04/19 23 10/03/2022 CMP, COMPR EHENS KAILEY METAB OLIC PANEL eGFR non- 92 mL/mi n/1.7 3m2 >60 THREE CONSE CUTIV E VALUE S < 60 mL/mi n COULD BE INDIC ATIVE OF KIDNE Y DISEA SE Not Available [facility] [address], [place], [address], 10/03/2022 16:33:59 10/04/19 23 10/03/2022 CMP, COMPR EHENS KAILEY METAB OLIC PANEL sodium 142 mmol/ L 135-14 5 Not Available [facility] [address], [place], [address], 10/03/2022 16:33:59 10/04/19 23 10/03/2022 CMP, COMPR EHENS KAILEY METAB OLIC PANEL potassium 4.0 mmol/ L 3.5-5. 5 Not Available [facility] [address], [place], [address], 10/03/2022 16:33:59 10/04/19 23 10/03/2022 CMP, COMPR EHENS KAILEY METAB OLIC PANEL chloride 107 mmol/ L 100-11 5 Not Available [facility] [address], [place], [address], 10/03/2022 16:33:59 10/04/19 23 10/03/2022 CMP, COMPR EHENS KAILEY METAB OLIC PANEL CO2 25 mmol/ L 21-33 Not Available [facility] [address], [place], [address], 10/03/2022 16:33:59 10/04/19 23 10/03/2022 CMP, COMPR EHENS KAILEY METAB OLIC PANEL anion gap 9.7 calc Not Available [facility] [address], [place], [address], 10/03/2022 16:33:59 10/04/19 23 10/03/2022 CMP, COMPR EHENS KAILEY METAB OLIC PANEL calcium 9.1 mg/dL 8.8-10 .6 Not Available [facility] [address], [place], [address], 10/03/2022 16:33:59 10/04/19 23 10/03/2022 CMP, COMPR EHENS KAILEY METAB OLIC PANEL total protein 7.0 g/dL 6.2-8. 6 Not Available [facility] [address], [place], [address], 10/03/2022 16:33:59 10/04/19 23 10/03/2022 CMP, COMPR EHENS KAILEY METAB OLIC PANEL albumin 4.2 g/dL 3.5-5. 7 Not Available [facility] [address], [place], [address], 10/03/2022 16:33:59 10/04/19 23 10/03/2022 CMP, COMPR EHENS KAILEY METAB OLIC PANEL globulin 2.8 g/dL 1.3-4. 0 Not Available [facility] [address], [place], [address], 10/03/2022 16:33:59 10/04/19 23 10/03/2022 CMP, COMPR EHENS KAILEY METAB OLIC PANEL A/G ratio 1.5 calc 1.0-2. 8 Not Available [facility], [place], [address], 10/03/2022 16:33:59 10/04/19 23 10/03/2022 CMP, COMPR EHENS KAILEY METAB OLIC PANEL AST (SGOT) 11 U/L 13-39 low Not Available [facility] [address], [place], [address], 10/03/2022 16:33:59 10/04/19 23 10/03/2022 CMP, COMPR EHENS KAILEY METAB OLIC PANEL ALT (SGPT) 12 U/L 7-52 Not Available [facility] [address], [place], [address], 10/03/2022 16:33:59 10/04/19 23 10/03/2022 CMP, COMPR EHENS KAILEY METAB OLIC PANEL total bilirubin 0.79 mg/dL 0.30-1 .00 Not Available [facility] [address] [place], [address], 10/03/2022 16:33:59 10/04/19 23 10/03/2022 CMP, COMPR EHENS KAILEY METAB OLIC PANEL alkaline phosphatase 51 U/L 20-128 Not Available [facility] [address] [facility] [address] [place], [address], 10/03/2022 16:33:59 10/04/19 23 10/03/2022 LIPID PANEL W/ CALCU LATED LDL cholesterol 195 mg/dL 20-180 high EXPEC KARINA RESUL TS for ADULT S: Total issa stero l: Risk Class ifica tion: <200 mg/dl Jonathan able 200-2 39 mg/dl Borde rline high >240 mg/dl High Not Available [facility] [address] [place], [address], 10/03/2022 16:34:00 10/04/19 23 10/03/2022 LIPID PANEL W/ CALCU LATED LDL triglyceride 87 mg/dL 30-150 Not Available [facility] [address] [facility] [address] [place], [address], 10/03/2022 16:34:00 10/04/19 23 10/03/2022 LIPID PANEL W/ CALCU LATED LDL HDL cholesterol 40 mg/dL 23-92 Not Available [facility] [address] [facility] [address] [place], [address], 10/03/2022 16:34:00 10/04/19 23 10/03/2022 LIPID PANEL W/ CALCU LATED LDL chol/HDL risk ratio 5 calc <3.5 OPTIM AL Not Available [facility] [address], [place], [address], 10/03/2022 16:34:00 10/04/19 23 10/03/2022 LIPID PANEL W/ CALCU LATED LDL non-HDL cholesterol 155 mg/dL JONATHAN ABLE IS <130 mg/dl Not Available [facility] [address], [place], [address], 10/03/2022 16:34:00 10/04/19 23 10/03/2022 LIPID PANEL W/ CALCU LATED LDL VLDL cholesterol 17.40 mg/dL Not Available [facility] [address], [place], [address], 10/03/2022 16:34:00 10/04/19 23 10/03/2022 LIPID PANEL W/ CALCU LATED LDL LDL calculated 138 mg/dL 0-99 high Not Available [facility] [address], [place], [address], 10/03/2022 16:34:00 10/04/19 23 10/03/2022 PSA SCREE [...] invol ving PSA value s. Not Available [facility] [address], [place], [address], 10/03/2022 16:34:00 10/04/19 23 10/03/2022 VENIP UNCTU RE results Compl ete Not Available [facility] [address], [place], [address], 10/03/2022 06:50:07 09/17/19 23 01/15/2022 CT, chest No observ ation record ed. [email or web address] Not Available 10/28 16:45:36 Result Notes None recorded. Problems Name Problem SNOMED Code Status Onset Date Resolution Date Notes Provider Name and Address Organization Details Recorded Time Pain of left shoulder joint 133088944056 56316 Completed 201909/16/2022 Tanner Madison MD [address], [place], [address], [facility], [facility] 3 20:28:27 Generaliz ed headache 291229237 Completed 201909/16/2022 Tanner Madison MD [address], [place], [address], [facility], [facility] 3 20:28:25 Dizziness 699030735 Completed 201909/16/2022 Tanner Madison MD [address], [place], [address], [facility], [facility] 3 20:28:24 Hyperlipi demia 79422085 Active 2023 Tanner Madison MD [address], [place], [address], [facility], [facility] 4 09:50:33 Notes:low back pain , neck p ain, Problem Notes None recorded. Procedures Surgical History Date Name Laterality Status Provider Name and Address Organization Details Recorded Time 07/27/18 80 appendectomy completed Joellen Fox CMA [facility], [facility] 09/17/2022 16:31:01 extraction of wisdom tooth completed Joellen Fox CMA [facility], [facility] 09/17/2022 16:30:46 Imaging Results None recorded. Procedure Notes None recorded. Medical Equipment None [...] (BMI) Body height Body temperature Heart rate Oxygen saturation Oxygen saturation in Arterial blood by Pulse oximetry Systolic blood pressure Diastolic blood pressure Provider Name and Address Organization Details Last Updated DateTime 3 34193.2 5 g 29.1 kg/m2 177.8 cm 98.8 [degF] 91 /min 97 % 97 % 138 mm[Hg] 88 mm[Hg] Joellen Fox CMA [facility] [employer] [facility], [employer] 3 16:34:23 Date Recorded Body mass index (BMI) Body height Oxygen saturation Oxygen saturation in Arterial blood by Pulse oximetry Heart rate Respiratory rate Body temperature Body weight Systolic blood pressure Diastolic blood pressure Provider Name and Address Organization Details Last Updated DateTime 0 28.1 kg/m2 175.26 cm 98 % 98 % 76 /min 14 /min 97.4 [degF] 48135.5 5 g 122 mm[Hg] 76 mm[Hg] Not Available [employer] 2 23:04:10 Date Recorded Body height Body mass index (BMI) Body weight Body temperature Heart rate Oxygen saturation Oxygen saturation in Arterial blood by Pulse oximetry Systolic blood pressure Diastolic blood pressure Provider Name and Address Organization Details Last Updated DateTime 3 177.8 cm 28.7 kg/m2 75538.7 6 g 97.9 [degF] 70 /min 98 % 98 % 139 mm[Hg] 78 mm[Hg] Jeri Romero [facility] 3 15:30:06 Date Recorded Body mass index (BMI) Body height Oxygen saturation Oxygen saturation in Arterial blood by Pulse oximetry Heart rate Respiratory rate Body temperature Body weight Systolic blood pressure Diastolic blood pressure Provider Name and Address Organization Details Last Updated DateTime 0 29.5 kg/m2 175.26 cm 98 % 98 % 79 /min 16 /min 98.5 [degF] 26144.4 7 g 124 mm[Hg] 90 mm[Hg] Not Available [facility] 2 23:04:10 Date Recorded Oxygen saturation Oxygen saturation in Arterial blood by Pulse oximetry Heart rate Respiratory rate Body temperature Body weight Systolic blood pressure Diastolic blood pressure Provider Name and Address Organization Details Last Updated DateTime 1 99 % 99 % 90 /min 16 /min 98.1 [degF] 78878.5 5 g 130 mm[Hg] 78 mm[Hg] Not Available [facility] 2 23:04:10 Social History Question Answer Notes LastModified by Organizat ion Details LastModified Time Tobacco Smoking Status Never Smoker HERACLIO Altman [address], [place], [address], [facility], [employer] 07/29/2017 16:07:55 Do You Have An Advance Directive? No Information not available 03/10/2023 Is Your Home Air Conditioned? Yes Information not available 03/10/2023 Are You Currently Sexually Active With Anyone [...] For COVID-19? No Information not available 03/10/2023 What Type Of [...] Or The Highest Degree You Have Received? [id number] Information not available 03/10/2023 Alcohol Use 1-2 Per Week Beer Information [...] Your Home? Yes Information not available 03/10/2023 Sex: Male Functional Status Question Answer Note LastModified by Organizat ion Details LastModified Time What is your level of alcohol consumption? Occasional 2-3 x month beer Information not available 09/17/2022 Do you or have you ever used smokeless tobacco? Never used smokeless tobacco Information not available 03/10/2023 Are you currently employed? 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 None Information [...] Medical History Condition Response Cancer (location) N Other N Gout N Thyroid Disease N Kidney Stones N Measles/Mumps N Emphysema/COPD N Sexually Transmitted Disease N Depression N Prostate Problems N Vascular Disease N Rash/Skin Condition N Amputation (location) N Parkinson's N Paralysis N Headaches/Migraines N Cardiac Pacemaker/defibrillator N Nerve Damage / Neuropathy N Arthritis N Sleep disorder/Insomnia N Heart disease / Heart Attack N Crohn's Disease N HIV/AIDS N Stroke/TIA N Colon Problems N High Cholesterol N Serious Injuries N Kidney Disease N Memory Loss/Alzheimer's N Gallbladder disease N High blood pressure N Congestive heart failure N Falls N Alcohol Overuse N Blood Thinner Treatment N Hormone Replacement N Nervous Breakdown N Tomlinson's Esophagus N Anemia N Urinary Problems N Colon Polyps N Gastritis N Hospitalizations (other than operations) N Back pain Y Diabetes N Rheumatic Fever N Bleeding Disorder N Cardiac Arrhythmias /irregular heart rat e N Osteopenia/Osteoporosis N Anxiety/Stress N Asthma N Vision Problems N Erectile / Sexual Dysfunction N Ostomies (location) N Seizures N Jaundice N Sleep Apnea N Hepatitis N Cirrhosis N GERD/Ulcer Y Chicken Pox N Allergies (other than meds) N Immunizations Vaccine Type Date Status Note Provider Nam e and Address Organization Details Recorded Time Influenza, split virus, quadrivalent, preservative 9 completed Jeri christopher [facility], [facility] 03/10/2023 15:23:35 pneumococcal polysaccharide PPV23 6 completed Jeri christopher [facility] 03/10/2023 15:23:35 Influenza, split virus, trivalent, PF 6 [facility]/17/[facility]22 16:26:15 Influenza, split virus, quadrivalent, PF 7 [facility] 09/17/2022 16:26:15 Past Encounters Encounter ID Performer Location Encounter Start Date Encounter Closed Date Diagnosis/Indication Diagnosis SNOMED-CT Code Diagnosis ICD10 Code Diagnosis Note [id number] HERACLIO Altman [facility] [address] [address] 07/29/2017 15:51:19 07/31/2017 11:53:14 Acute maxillary sinusitis 88403803 J01.00 Acute, uncontroll ed. Begin treatment as prescribed . Side effects reviewed in detail. Follow up if s/s worsen or persist. Screening for malignant neoplasm of rectum 447749710 Z12.12 Adult [facility] examination 050353841 Z00.00 Endocrine/ metabolic screening 328273437 Z13.29 Screening for cancer 158 51406 Z12.5 [id number] _ATHN_MIGR ATION_1 [facility] [place] [address] [place] [place] [address] 12/30/2019 00:00:00 12/30/2019 11:52:52 [id number] _ATHN_MIGR ATION_1 [facility] [place] [address] [place] [address] [place] [address] 04/05/2020 00:00:00 04/05/2020 10:49:11 [id number] Morro Fitch MD [facility] [place] [address] [place] [address] [place] [address] 05/11/2021 00:00:00 05/11/2021 11:52:44 [id number] Tanner Madison MD [facility] JETT MCKEON [address] [facility] [place] [address] 09/17/2022 16:02:31 09/17/2022 17:15:42 Chronic low back pain 744064307 M54.50 will refer to pain management . Has MRI's of lumbar and cervical spine Neck pain 06525778 M54.2 not as bad as the back, will address in the future. Adult [facility] examination 178422905 Z00.01 Screening for malignant neoplasm of prostate 449317276 Z12.5 Screening for malignant neoplasm of colon 408607322 Z12.11 Skin lesion 96382514 L98 .9 [id number] HERACLIO BROWNE [facility] [address] [facility] [address] [facility] e [facility] [place] [address] 03/10/2023 15:17:50 03/10/2023 15:48:42 Benign paroxysmal positional vertigo 924452477 H81.10 Acute on chronic-Di scussed Arpit maneuver with patient-Pe rformed Arpit maneuver with improvemen t of symptoms-R ecommended meclizine to use twice daily as needed for dizziness. -If improvemen t with meclizine can discuss referral to ENT. If no improvemen t can discuss referral for neurology. -Return to clinic if worsening symptoms Gastroesop hageal reflux disease without esophagitis [id number] K21.9 New diagnosis- Will try omeprazole 40 [...] None Recorded Advance Directives Directive N: Payers Insurance Date Sequence Insurance Name Policy Number Policy Sinclair Covered Member ID Sinclair Member ID Guarantor Name 04/16/2023 1 [facility] [place] [id number] Marco Weller [id number] Marco Green 09/15/2023 1 [facility] [place] [id number] Soren Green [id number] Marco Green Notes Date Note Type Note Provider Name and Address Organization Details Recorded Time 09/17/2022 text/html [facility]. HAs lots of back and neck pain. [...] doctor for a while. Tanner Madison MD [address] [facility] [address], [place], [address], [place] - [facility], [facility] 09/18/2022 07:18:33 03/10/2023 text/html Mr. Green is [...] reflux which has worsened. He has tried [id number] ranitidine, Tums and pantoprazole. HERACLIO BROWNE [address], [place], [address], [place] - [facility], [facility] 03/10/2023 16:29:28
--- OUTSIDE RECORDS SUMMARY | 2025-01-10 14:56 | XMS_ITS | Clinical Summary ---
Author Organization [facility] Maeve gonzalez Rikitory Address [address] [place] [address] Care Team Providers Care Assembly Loader Name Role Phone Gogo Ivey MD Primary Care Provider Allergies No known active allergies Medications HYDROcodone-reinaldo taminophen (NORCO) 5-325 mg tabletIndicatio ns:Tongue cancer ([facility]) Take 1 Tablet by mouth every 4 [...] Encounters Date Type Department Care Team Description 01/09/2025 Orders Only [facility] Oncology and Hematology - [place] [address] [place] [address] Flex Royal MD Tongue cancer ([facility]) 12/26/2024 Orders Only [facility] Oncology and Hematology - [place] [address] [place] [address] Flex Royal MD Tongue cancer ([facility]/HCC) 12/12/2024 Orders Only [facility] Oncology and Hematology - [place] [address] [place] [phone] Flex Royal MD Tongue cancer ([facility]/HCC) 11/28/2024 Orders Only [facility] Oncology and Hematology - [place] [address] [place] [phone] Flex Royal MD Tongue cancer ([facility]/HCC) 11/24/2024 9:15 AM CDT Office Visit [facility] Oncology and Hematology - [place] [address] [place] [phone] Flex Royal MD Tongue cancer ([facility]) (Primary Dx); Head and neck cancer ([facility]) 11/22/2024 Orders Only [facility] Oncology and Hematology - [place] [place] [phone] Flex Royal MD 11/21/2024 Orders Only [facility] Oncology and Hematology - [place] [address] [place] [phone] Flex Royal MD 11/16/2024 Orders Only [facility] Oncology and Hematology - [place] [place] [address] Flex Royal MD 11/15/2024 Orders Only [facility] Alej[facility] Radiation Therapy [address] [place] [address] Nguyễn Powell MD 11/14/2024 Orders Only [facility] Oncology and Hematology - [place] [address] [place] [address] Flex Royal MD Tongue cancer ([facility]/HCC) 10/31/2024 Orders Only [facility] Oncology and Hematology - [place] [address] [place] [phone] Flex Royal MD Tongue cancer ([facility]/HCC) 10/28/2024 Orders Only [facility] Oncology and Hematology - [place] [address] [place] [address] Flex Royal MD 10/27/2024 9:15 AM CDT Office Visit [facility] Oncology and Hematology - [place] [address] [place] [address] Flex Royal MD Tongue cancer (CMS/HCC) (Primary Dx) 10/27/2024 Orders Only [facility] Oncology and Hematology - [place] [address] [place] [address] Flex Royal MD 10/17/2024 Orders Only [facility] Oncology and Hematology - [place] [address] [place] [address] Flex Royal MD Tongue cancer (CMS/HCC) from Last 3 Months Family History Medical [...] on file 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 Gender Identity Not on file Sexual Orientation [...] 9:06 AM CDT Height 177.8 cm (5' 10) 08/24/2024 2:03 PM BROADCAST JOURNALIST Body Mass Index 26.8 08/24/2024 2:03 PM BROADCAST JOURNALIST Plan of Treatment Upcoming Encounters Date Type Department Care Team (Late st Contact Info) Description 02/09/2025 3:30 PM CDT Office Visit [facility] Oncology and Hematology - [place] [address] [facility] [address] [place] [address] Flex Royal MD [address] [facility] [address] [place] [address] Health Maintenance Due Date Last Done Comments [...] METABOLIC PANEL Routine 10/27/2024 11:57 AM CDT from Last 3 Months Results * BASIC METABOLIC PANEL (11/21/2024 3:20 PM CDT) Only the most recent of3 resultswithin the time period is included. Blood Flex Royal MD CHEMISTRY ORDERABLES Final Resu lt * CBC MIXED CELL DIFFERENTIAL (11/21/2024 11:17 AM CDT) Only the most recent of2 resultswithin the time period is included. Blood Flex Royal MD HEMATOLOGY ORDERABLES Final Res ult from Last 3 Months Insurance [facility] [id number] Care Teams Assembly Loader Relationship Specialty Start Date End Date Gogo Ivey MD [address] [place] [address] [address] [place] [phone] PCP - General Internal Medicine 08/24/24
--- OUTSIDE RECORDS SUMMARY | 2025-01-10 14:56 | XMS_ITS | Encounter Summary ---
Author Organization [facility] Address [address] [place] [address] Care Team Providers Care County Assessor Name Role Phone Gogo Ivey MD Primary Care Provider Encounter Details Date Type Department Care Team (Late Contact Info) Description 01/09/2025 Orders Only [facility] Oncology and [facility] [address] [place] [address] Flex Royal MD [facility] [employer] [address] [place] [address] Tongue cancer (CMS/HCC) Social History Tobacco Use Types Packs/Day Years Used Date Smoking Tobacco: Never Smokeless Tobacco: Never Alcohol Use Standard Drinks/Week Comments Yes 0 (1 standard drink = 0.6 oz pur e alcohol) Occasionally Sex and Gender Information Value Date Recorded Sex Assigned at Not on file 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 Gender Identity Not on file Sexual Orientation Not on file documented as of this encounter Plan of Treatment Upcoming Encounters Date Type Department Care Team (Late Contact Info) Description 02/09/2025 3:30 PM CDT Office Visit [facility] Oncology and Hematology [facility] [address] [place] [address] Flex Royal MD [facility] [employer] [address] [place] [phone] documented as of this encounter Visit Diagnoses Diagnosis Tongue cancer (CMS/HCC) Malignant neoplasm of tongue, unspecified site documented in this encounter Care Teams County Assessor Relationship Specialty Start Date End Date Gogo Ivey MD [address] [address] PCP - General Internal Medicine 08/24/24 documented as of this encounter
--- OUTSIDE RECORDS SUMMARY | 2025-01-10 14:56 | XMS_ITS | Referral Summary ---
Author Organization [facility] Address [address] [place] [address] Care Team Providers Care Economic Research Analyst Name Role Phone Kiana Ivey MD Primary Care Provide r Encounters Date Type Department Care Team Description 01/06/2025 3:00 PM CDT Office Visit [facility] Medical Group Cardiology [address] [place] [phone] Arielle Sagastume NP Sinus bradycardia (Primary Dx); Hospital discharge follow-up; Squamous cell carcinoma of oropharynx (HCC) 11/29/2024 2:30 PM CDT Ancillary Procedure [facility] Medical [facility] Cardiology [address] [place] [address] Bradycardia from Last 3 Months Allergies No known active allergies Medications pantoprazole DR (PROTONIX) 40 mg EC tablet TAKE 1 TABLET BY MOUTH EVERY DAY NEEDED FOR 90 DAYS Active Active Problems No known active problems Social History Tobacco Use Types Packs/Day Years Used Date Smoking Tobacco: Never Tobacco Cessation:Counseling Given: Not Answered Sex and Gender Information Value Date Recorded Sex Assigned at Not on file 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 Gender Identity Not on file Sexual Orientation Not on file Last Filed Vital Signs Vital Sign Reading Time Taken Comments Blood Pressure 110/72 01/06/2025 3:11 PM CDT Pulse 67 01/06/2025 3:11 PM CDT Temperature - - Respiratory Rate - - Oxygen Saturation 99% 01/06/2025 3:11 PM CDT Inhaled Oxygen Concentration - - Weight 82.1 kg (181 lb) 01/06/2025 3:11 PM CDT Height 177.8 cm (5' 10) 01/06/2025 3:11 PM CDT Body Mass Index 25.97 01/06/2025 3:11 PM CDT Plan of Treatment Not on file Procedures Procedure Name Priority Date/Time Associated Diagnosis Comments MCT - MOBILE CARDIAC TELEMETRY EVENT MONITOR Routine 11/29/2024 3:35 PM CDT Bradycardia from Last 3 Months Results * MCT Mobile Cardiac Telemetry Event Monitor (11/29/2024 3:35 PM CDT) Anatomical Region Laterality Modality Electrocardiogra phy Narrative 01/02/2025 10:08 AM CDT AMBULATORY STONE POLISHER MACHINE REPORT Patient Name: Marco Smith Date of : 1960 Requesting Physician: Dr Jasmine Medina Date of interpretation: 01/02/25 Type of monitor : 30 day mobile cardiac outpatient telemetry Date of the study/Enrollment period: November 29 till December 28, 2024 Indication: Bradycardia, unspecified Quality of the study: Fair. Artifact time 13% Interpretation: Average heart rate was 63 beats per minute with a minimum heart rate 37 beats per minute and maximum heart rate 158 beats per minute. No evidence of atrial fibrillation, supraventricular tachycardia, ventricular tachycardia or significant pauses or blocks. [place] of PVCs was less than 1 % burden of supraventricular contractions was 1%. There were 5 manually detected events but no symptoms reported. 1 episode was with sinus rhythm and PVCs and the other 4 episodes were with sinus rhythm. Conclusions: PACs and PVCs as described above. Voice recognition software was used to complete this document, therefore, work car operator variances may occur. Mello Mayo MD, [facility] 01/02/25 Procedure Note Mello Mayo MD - 01/02/2025 AMBULATORY STONE POLISHER MACHINE REPORT Patient Name: Marco Smith Date of : 1960 Requesting Physician: Dr Jasmine Medina Date of interpretation: 01/02/25 Type of monitor : 30 day mobile cardiac outpatient telemetry Date of the study/Enrollment period: November 29 till December 28, 2024 Indication: Bradycardia, unspecified Quality of the study: Fair. Artifact time 13% Interpretation: Average heart rate was 63 beats per minute with a minimum heart rate 37beats per minute and maximum heart rate 158 beats per minute. No evidenceof atrial fibrillation, supraventricular tachycardia, ventriculartachycardia or significant pauses or blocks. [place] of PVCs was less than1 % burden of supraventricular contractions was 1%. There were 5 manually detected events but no symptoms reported. 1 episodewas with sinus rhythm and PVCs and the other 4 episodes were with sinusrhythm. Conclusions: PACs and PVCs as described above. Voice recognition software was used to complete this document, therefore,work car operator variances may occur. Mello Mayo MD, [facility] 01/02/25 Jasmine Medina MD CV CARDIAC SERVICES PROCEDU RES Final Result from Last 3 Months Insurance [facility] Care Teams Economic Research Analyst Relationship Specialty Start Date End Date Kiana Ivey MD [address] [facility] [address] [place] [address] PCP - General Internal Medicine 08/24/24
--- OUTSIDE RECORDS SUMMARY | 2025-01-10 14:56 | XMS_ITS | Patient Health Record ---
Author Organization [facility] Address [address] [place] [address] Care Team Providers Care Employment Specialist Name Role Phone Tanner Madison MD Primary [...] Risk Notes Problem Lumbosacral spondylosis without myelopathy (48081756) Spondylosis without myelopathy or radiculopathy, lumbar region (M47.816) Active confirmed Problem Lumbosacral spondylosis without myelopathy (disorder) (93272123) Spondylosis without myelopathy or radiculopathy, lumbosacral region (M47.817) Active confirmed Problem Cervical spondylosis without myelopathy (033143947) Other spondylosis, cervical region (M47.892) Active confirmed Problem Cervical spondylosis without myelopathy (236335783) Other spondylosis, cervicothoracic region (M47.893) Active confirmed Problem Thoracic spondylosis without myelopathy (064086728) Other spondylosis, thoracic region (M47.894) Active confirmed Problem Thoracic spondylosis without myelopathy (998370059) Other spondylosis, thoracolumbar region (M47.895) Active confirmed Problem Spinal stenosis in cervical region (67453203) 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 (M99.61) Active confirmed Problem Spinal stenosis of lumbar region (40658682) Spinal stenosis, lumbar region without neurogenic claudication (M48.061) Active confirmed Plan Of Treatment No Information Insurance Providers Payer Name Payer Address Payer Phone Subscriber Number Group Number Insured Name Patient Relationship to Insured Coverage Start Date Coverage End Date BCBS OUT OF STATE [address] [place] [address] [id number] EUGENIA SMITH Self - patient is the insured Medical (General) History Medical History History ICD Code acid reflux/gerd arthritis Surgical History Surgery Date(Month/Year) appendix 1980
--- OUTSIDE RECORDS SUMMARY | 2025-01-10 14:56 | XMS_ITS | Clinical Summary ---
Author Organization [facility] Address [address] [place] [address] Care Team Providers Care Patient Appointment Coordinator Name Role Phone Kiana Ivey MD Primary Care Provide r Allergies No known active allergies Medications pantoprazole DR (PROTONIX) 40 mg EC tablet TAKE 1 TABLET BY MOUTH EVERY DAY NEEDED FOR 90 DAYS Active Active Problems No known active problems Encounters Date Type Department Care Team Description 01/06/2025 3:00 PM CDT Office Visit [facility] Cardiology [address] [place] [phone] Arielle Sagastume NP Sinus bradycardia (Primary Dx); Hospital discharge follow-up; Squamous cell carcinoma of oropharynx (HCC) 11/29/2024 2:30 PM CDT Ancillary Procedure [facility] Medical [facility] Cardiology [address] [place] [phone] Bradycardia from Last 3 Months Social History Tobacco Use Types Packs/Day Years Used Date Smoking Tobacco: Never Tobacco Cessation:Counseling Given: Not Answered Sex and Gender Information Value Date Recorded Sex Assigned at Not on file 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 Gender Identity Not on file Sexual Orientation Not on file Obstetrics History Last Filed Vital Signs Vital Sign Reading [...] 01/06/2025 3:11 PM CDT Plan of Treatment Health Maintenance Due Date Last Done Comments Colon Cancer Screening-Colonoscopy 1960 Depression Screening 1960 Fall Risk Assessment 1960 Hepatitis C Screening 1960 Prostate Cancer Screening-PSA 1960 DTaP/Tdap/Td Vaccine (1 - Tdap) 11/04/1970 Hepatitis B Screening 11/04/1977 Pneumococcal vaccine 65+ (1 of 1 - PCV) 11/04/2009 Well Visit 65+ 11/04/2024 Influenza Vaccine Completed 06/28/2024 Zoster Vaccine Completed 09/20/2024, 07/17/2024 Procedures Procedure Name Priority Date/Time Associated Diagnosis Comments MCT - MOBILE CARDIAC TELEMETRY EVENT MONITOR Routine 11/29/2024 3:35 PM CDT Bradycardia from Last 3 Months Results * MCT Mobile Cardiac Telemetry Event Monitor (11/29/2024 3:35 PM CDT) Anatomical Region Laterality Modality Electrocardiogra phy Narrative 01/02/2025 10:08 AM CDT AMBULATORY CENSUS CLERK REPORT Patient Name: Marco Smith Date of [...] ventricular tachycardia or significant pauses or blocks. [place] of PVCs was less than 1 % burden of supraventricular contractions was 1%. There were 5 manually detected events but no symptoms reported. 1 episode was with sinus rhythm and PVCs and the other 4 episodes were with sinus rhythm. Conclusions: PACs and PVCs as described above. Voice recognition software was used to complete this document, therefore, service team leader variances may occur. Mello Mayo MD, [facility] 01/02/25 Procedure Note Mello Mayo MD - 01/02/2025 AMBULATORY CENSUS CLERK REPORT Patient Name: Marco Smith Date of [...] tachycardia, ventriculartachycardia or significant pauses or blocks. [place] of PVCs was less than1 % burden of supraventricular contractions was 1%. There were 5 manually detected events but no symptoms reported. 1 episodewas with sinus rhythm and PVCs and the other 4 episodes were with sinusrhythm. Conclusions: PACs and PVCs as described above. Voice recognition software was used to complete this document, therefore,service team leader variances may occur. Mello Mayo MD, [facility] 01/02/25 Jasmine Medina MD CV CARDIAC SERVICES PROCEDU RES Final Result from Last 3 Months Insurance [facility] Care Teams Patient Appointment Coordinator Relationship Specialty Start Date End Date Kiana Ivey MD [address] [place] [address] PCP - General Internal Medicine 08/24/24
--- OUTSIDE RECORDS SUMMARY | 2025-01-10 14:56 | XMS_ITS | Data Portability ---
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 Name Role Phone GOGO CHAUHAN Primary Care Provider [phone] Assessment Encounter Date Assessment Date Assessment LastModified [...] available Lab lipid [facility], [facility] [address] [place], [address], 12/30/2024 15:51:45 CBC w/ auto diff 2024 025 [email or web address] [facility] (Lab), [address] [place], [address], 11/10/2024 09:11:07 CMP, serum or plasma 2024 025 [email or web address] [facility] (Lab), [address] [place], [address], 11/10/2024 09:11:24 TSH, serum or plasma [address] (Lab), [address] [place], [address], 11/10/2024 09:11:35 PSA, total, serum or plasma [address] (Lab), [address] [place], [address], 11/10/2024 09:11:53 vitamin D, 25-hydrox y, total, serum [address] (Lab), [address] [place], [address], 11/10/2024 09:11:43 PSA, total, serum or plasma 2023 024 [facility] (Lab), [address] [place], [address], 06/30/2024 11:31:50 lipid panel, serum 2023 024 [facility] (Lab), [address] [place], [address], 06/30/2024 11:31:49 CBC w/ auto diff 2023 024 [facility] (Lab), [address] [place], [address], 06/30/2024 11:31:50 CMP, serum or plasma 2023 024 [facility] (Lab), [address] [place], [address], 06/30/2024 11:31:49 TSH, serum or plasma 2023 024 [facility] (Lab), [address] [place], [address], 06/30/2024 11:31:50 vitamin D, 25-hydrox y, total, serum 2023 024 [facility] (Lab), [address] [place], [address], 06/30/2024 11:31:51 Referral dermatolo gist referral - Please call patient to schedule an appointme nt. Thank you. 2024 025 [facility], [address] [place], [address], 11/07/2024 09:40:25 otolaryng ologist referral - Please call patient to schedule. 2023 024 ELIZABETH Kay MD, [address], [place], [address], 07/18/2024 16:45:21 oncologis t referral - Please call patient to schedule. 2023 025 JONA Royal MD, [address], [place], [address], 08/24/2024 18:36:02 dermatolo gist referral - Please call patient to schedule. 2023 024 [email or web address] [facility], [address] [place], [address], 08/18/2024 12:15:00 Procedures colonosco py screening (PROC) - Please call patient to schedule an appointme nt. Thank you. 2024 025 ELIZABETH Walsh MD, [address], [place], [address], 11/09/2024 09:25:15 colonosco py screening (PROC) - Please call patient to schedule. 2023 024 [email or web address] Yohannes Walsh MD, [address] [facility] [address], [place], [address], 08/18/2024 12:04:24 Surgeries None recorded. Imaging US, neck, soft tissue - Please call patient to schedule. 2023 024 [facility], [address], [place], [address], 07/01/2024 18:27:28 Medication Orders pantopraz ole 40 mg tablet,de layed release 2024 025 [email or web address] [facility] [id number] [facility], [address] [place], [address], 11/02/2024 12:58:42 Patient TargetsNo targets recorded. Patient Instructions Encounter Date Encounter Id Patient Instructions Last Modified By Organization Details Last Modified Time 08/04/2024 [id number] to get things going he will undergo laryngoscopy and biopsy with a PET scan at [facility]. He prefers to be treated at [place] [address] Not available 08/04/2024 14:42:06 Reason for Referral Laboratory Phlebotomist Referral for S kin lesion Please call patient to schedule. Referring Physician: Gogo Chauhan Internal Medicine, Encounter Date: 06/28/2024 Revenue Cycle Manager Referral fo r Mass of tongue Please call patient to schedule. Referring Physician: Gogo Chauhan Internal Medicine, Encounter Date: 06/28/2024 Please call patient to sched ule. Referring Physician: Gogo Chauhan Internal Medicine, Encounter Date: 06/28/2024 Laboratory Phlebotomist Referral for S kin lesion Please call patient to schedule an appointment. Thank you. Referring Physician: Romina Edwards Medicine, Encounter Date: 11/02/2024 Results Created Date Observation Date Name Description Value Unit Range Abnormal Flag Note LastModifiedBy Organization Detail LastModifiedTime 08/15/19 25 08/19/2024 PATHO LOGY SERVI CE pathserv SEE COMMEN T See separ ate patho logy repor t. Not Available [facility] ([facility]) [address] [place], [address], 08/19/2024 12:30:09 07/01/20 24 07/01/2024 US, neck, soft tissu e No observ ation record ed. [address], [place], [address], 07/01/2024 18:27:28 07/14/20 24 07/14/2024 CT, neck, soft tissu e, w/ contr ast No observ ation record ed. [address], [place], [address], 07/14/2024 17:31:46 08/29/19 25 08/29/2024 PET-C T, whole body scan No observ ation record ed. [email or web address] [facility] [address] [place] [address], [address], 08/29/2024 16:28:37 09/09/19 25 09/09/2024 PET-C T, whole body scan No observ ation record ed. [facility] Nuclear Medicine - [facility] [address] [place], [address], 09/09/2024 11:57:46 11/28/19 25 11/27/2024 imagi ng/di agnos tic resul t No observ ation record ed. [address], [place], [address], 11/27/2024 14:57:57 11/29/19 25 11/28/2024 imagi ng/di agnos tic resul t No observ ation record ed. [address], [place], [address], 11/28/2024 11:35:21 Result Notes None recorded. Problems Name Problem SNOMED Code Status Onset Date Resolution Date Notes Provider Name and Address Organization Details Recorded Time Vitamin D deficiency 96308975 Active 2023 Gogo garcias MD [address], [address], [place], [address], [employer] [facility] [employer] [facility] 4 14:13:49 Cervical lymphadenopath y 757628727 Active 2023 Gogo garcias MD [address], [address], [place], [address], [employer] [facility] [employer] [facility] 4 15:22:38 Hyperlipidemia 15674621 Active 2023 Jayleen Bautista [employer] null, [place] [employer] [facility] [employer] 4 12:36:51 Neck pain 09061607 Active 2023 Jayleen Bautista [employer] null, [employer] [facility] [employer] [facility] 4 16:00:17 Mass of tongue 055091911 Active 2023 Gogo garcias MD [address], [address], [place], [address], [employer] [facility] [employer] [facility] 4 18:35:52 Skin lesion 32091090 Active 2023 Gogo garcias MD [address], [address], [place], [address], [employer] [facility] [employer] [facility] 4 12:46:31 Squamous cell carcinoma of tongue 905858577 Active 2024 Kendra Lackey RN null, [place] [facility] [employer] [facility] 5 14:31:46 Primary malignant neoplasm of base of tongue 28957466 Active 2024 Kyle Kay MD [address], [address], [place], [address], [employer] [facility] [employer] [facility] 5 14:41:26 Gastroesophage al reflux disease without esophagitis 793069013 Active 2024 Gogo garcias MD [address], [address], [place], [address] , [facility] [employer] [facility] 12:09:03 Problem Notes None recorded. Procedures Surgical History Date Name Laterality Status Provider Name and Address Organization Details Recorded Time Appendectomy completed JERE Oh [facility] [employer] [facility] 06/28/2024 14:34:54 Laryngoscopy with biopsy completed Kendra Lackey RN [facility] [employer] 08/22/2024 08:49:39 Imaging Results None recorded. Procedure Notes None recorded. Medical Equipment None Reported. Allergies No known drug allergies Medications Name Sig Start Date Stop Date Status Note LastModified by Organization Details LastModified Time hydrocodone 5 mg-acetamin ophen 325 mg tablet TAKE 1 TABLET BY MOUTH EVERY 4 HOURS NEEDED FOR MODERATE PAIN. MAX DAILY AMOUNT: 6 TABLETS active Not Available Not Available No t Available acetaminoph en 300 mg-codeine 30 mg tablet TAKE 1 TAB BY MOUTH EVERY 6 HOURS. NO DRIVING ON THIS MED. NOT W/ADDITIO NAL TYLENOL. IBUPROFEN OKAY. active Not Available Not Available No t Available ondansetron 8 mg disintegrat ing tablet DISSOLVE 1 TABLET ON TOP OF TONGUE THEN SWALLOW EVERY 8 HOURS NEEDED FOR NAUSEA OR VOMITING active Not Available Not Available No t Available pantoprazol e 40 mg tablet,uyen yed release TAKE 1 TABLET BY MOUTH EVERY DAY NEEDED FOR 90 DAYS active Not Available Not Available No t Available lidocaine HCl 2 % mucosal solution 5 ML BY MOUTH/THR OAT ROUTE EVERY 4 HOURS NEEDED FOR PAIN. active Not Available Not Available No t Available rosuvastati n 40 mg tablet TAKE 1 TABLET BY MOUTH EVERY DAY 2024 active Not Available Not Available Not Avai lable cholecalcif cesar (vitamin D3) 1,250 mcg (50,000 unit) capsule TAKE 1 CAPSULE BY MOUTH ONE TIME PER WEEK 11/02 completed Not Available Not Available Not Available Vitals Date Recorded Body height Body mass index (BMI) Body weight Body temperature Provider Name and Address Organization Details Last Updated DateTime 08/04/2024 177.8 cm 29.8 kg/m2 84082.78 g 97.6 [degF] Kendra Lackey RN [facility] [employer] 08/04/2024 14:07:39 Date Recorded Body height Body mass index (BMI) Body weight Body temperature Provider Name and Address Organization Details Last Updated DateTime 08/22/2024 177.8 cm 29.4 kg/m2 44196.44 g 97.9 [degF] Kendra Lackey RN [facility] [employer] [facility] 08/22/2024 10:43:07 Date Recorded Body height Body mass index (BMI) Body weight Body temperature Heart rate Systolic blood pressure Diastolic blood pressure Provider Name and Address Organization Details Last Updated DateTime 5 177.8 cm 28 kg/m2 84592.5 1 g 97.1 [degF] 72 /min 114 mm[Hg] 80 mm[Hg] JERE Oh [facility] [employer] 5 11:21:47 Date Recorded Body weight Body mass index (BMI) Body height Body temperature Heart rate Systolic blood pressure Diastolic blood pressure Provider Name and Address Organization Details Last Updated DateTime 4 22532.2 1 g 29.8 kg/m2 177.8 cm 98.1 [degF] 78 /min 110 mm[Hg] 70 mm[Hg] JERE Oh [facility] [employer] 4 14:37:02 Social History Question Answer Notes LastModified by Organizat ion Details LastModified Time Tobacco Smoking Status Never Smoker JERE Oh [facility] [employer] [facility] 06/28/2024 14:33:04 Do You Have An Advance [...] Was Ill? No Information not available 06/28/2024 What Type Of Diet Are You Following? REGULAR Information n ot available 06/28/2024 What Is The Highest Grade Or Level Of School You Have Completed Or The Highest Degree You Have Received? [id number] Information not available 06/28/2024 What Is The Fluoride Status Of Your Home? Unknown Information not available 06/28/2024 Are There Any Guns Present In Your Home? Yes Information not available 06/28/2024 Where Do You Live? Trailer Inform ation not available 06/28/2024 Do You Have A Medical Power Of Retail Sales Consultant? No Information not available 06/28/2024 What Was [...] Your House? No Information not available 06/28/2024 Has Tobacco Cessation Counseling Been Provided? No N/a Information not available 06/28/2024 Have You Recently Traveled Abroad? No Information not available 06/28/2024 Sex: Unknown Functional Status Question Answer Note LastModified by Organizat ion Details LastModified Time Do you use any illicit or recreational drugs? No Information not available 06/28/2024 Do you or have you ever used any other forms of tobacco or nicotine? No Information not available 06/28/2024 What is your level of alcohol consumption? Occasional Information not available 06/28/2024 Are you currently employed? 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 Occasional stays active Information not available 06/28/2024 Mental Status Question Answer Note LastModified by Organization D etails LastModified Time Do you feel stressed (tense, restless, nervous, or anxious, or unable to sleep at night)? [id number] Information not available 06/28/2024 Family History Relationship Description Onset Age of [...] Time zoster recombinant 07/17/2024 completed JERE Oh, [employer] 07/28/2024 16:07:28 zoster recombinant 09/20/2024 completed JERE Oh, [employer] 11/02/2024 11:18:36 Influenza, split virus, trivalent, PF 06/28/2024 completed Gogo Chauhan MD [address] [facility] [address], [address], [employer] 07/15/2024 18:38:30 Past Encounters Encounter ID Performer Location Encounter Start Date Encounter Closed Date Diagnosis/Indication Diagnosis SNOMED-CT Code Diagnosis ICD10 Code Diagnosis Note [id number] Gogo forte MD [facility] Internal Med [facility] [address] [facility], [facility] [address] [place] [address] 06/28/2024 14:03:05 06/28/2024 15:30:34 Screening - NAD 241254811 Z13.9 C-scope; Get this if not done Get yearly flu shot, get tdap if not doneCan do Shingrix vaccineCan do COVID 19 boostersCa n do RSV vaccine RTC in 3 months, do labs, ER if worse, he did verbalize his understand ing of the above Screening for malignant neoplasm of colon 817732176 Z12.11 Hyperlipid emia screening 677847831 Z13.220 Addendum 07/15/2024 :Get on statin, case sent Vitamin D deficiency 347 40612 E55.9 Addendum 07/15/2024 :Get on vit d weekly and repeat the vit d, case sent Screening for malignant neoplasm of prostate 087185377 Z12.5 Skin lesion 26235612 L98 .9 Cervical lymphadenopathy 622471800 R59.0 Addendum: 07/15/2024 :US neck 07/01/2024 CT neck 07/14/2024 : Mass notedCase sent, needs to see oncologist IMANI Administra tion of influenza vaccine 68015864 Z23 Mass of tongue 470025912 R22.0 Addendum: 07/15/2024 :See CT neck 07/14/2024 , needs to see ENT and oncology [id number] Kyle Kay MD [facility] [place] [address] [place] [address] 08/04/2024 13:50:33 08/09/2024 13:55:37 Primary malignant neoplasm of base of tongue 75469464 C01 [id number] Kyle Kay MD [facility] [place] [address] [place] [address] 08/22/2024 10:06:08 08/23/2024 10:53:37 Primary malignant neoplasm of base of tongue 76077863 C01 [id number] Gogo forte MD [facility] Primary Care [facility] [address] [facility] [address] [place] [address] 11/02/2024 11:06:55 11/02/2024 12:16:40 Screening - NAD 175026190 Z13.9 C-scope; Get this if not done Get yearly flu shot, get tdap if not doneCan do Shingrix vaccineCan do COVID 19 boostersCa n do RSV vaccine RTC in 3 months, do labs, ER if worse, he did verbalize his understand ing of the above Screening for malignant neoplasm of colon 784800493 Z12.11 Hyperlipid emia screening 867788646 Z13.220 Addendum 07/15/2024 :Get on statin, case sent, but today 11/02/2024 not taking Vitamin D deficiency 347 84247 E55.9 Addendum 07/15/2024 :Get on vit d weekly and repeat the vit d, case sent Screening for malignant neoplasm of prostate 413876926 Z12.5 Skin lesion 70515799 L98 .9 Mass of tongue 305035855 R22.[address] neck 07/14/2024 , needs to see ENT and oncology 08/19/2024 : Bx Invasive squamous cell carcinoma Dr Mike ET CT 09/09/2024 Dr Royal 09/09/2024 , to get chemoradia tionDr Genny 10/27/2024 Gastroesop hageal reflux disease without esophagitis 035404907 K21.9 Has noted acid reflux symptoms since [...] Member ID Sinclair Member ID Guarantor Name 10/30/2024 1 [facility] [id number] Marco Green [id number] Marco Green Notes Date Note Type Note Provider Name and Address Organization Details Recorded Time 06/28/2024 text/html OV 06/28/2024:He re to establish care Present Hx:C/o lymph nodes in neck, and to get labs Gogo Chauhan MD [address], [address], [place], [address], [employer] 07/15/2024 18:54:50 08/04/2024 text/html this patient developed [...] Kay MD [address], [address], [place], [address], [employer] 08/04/2024 14:42:32 08/22/2024 text/html The pathology report indicated invasive squamous cell carcinoma as expected. We will schedule his PET-CT through [facility] and he has an appointment to see a medical oncologist at [facility] this week. Kyle Kay MD [address], [place], [address], [facility] [employer] [facility] 08/22/2024 11:00:42 11/02/2024 text/html OV 06/28/2024:He re to establish care Present Hx:C/o lymph nodes in neck, and to get labs OV 11/02/2024: Here for his f/u apt, he did do the labs, here with his , wants to discuss his GERD like symptoms and get a medication for this Gogo Chauhan MD [address], [place], [address], [facility] [employer] [facility] 11/02/2024 13:02:37
== END 2025-01-10 14:06 | disposition home or self-care (01) ==
PROVIDERS: Visit Provider Internal Medicine Hematology & Oncology
DX: C76.0 Malignant neoplasm of head, face and neck (principal); N40.0 Benign prostatic hyperplasia without lower urinary tract symptoms
CPT/HCPCS: 78815; A9552

== ENCOUNTER 2025-04-24 12:59 | Outpatient (CLI) | payer MEDICARE, SELFPAY ==
--- NOTE | ~2025-04-24 | CT_ITS ---
EXAMINATION: CT soft tissue neck w con DATE: 04/24/2025 13:29 INDICATION: Tongue cancer. TECHNIQUE: Computed tomography (CT) of the neck was performed with 75 mL Omnipaque-350 intravenous contrast. Automated exposure control and iterative reconstruction technique were employed. The dose-length product was 495.34 mGy-cm. COMPARISON: CT neck 11/26/2024, 07/14/2024 FINDINGS: There are no pathologically enlarged lymph nodes. There is an ill- defined 2.3 x 2.0 cm mass in the left base of tongue that measured 3.0 x 2.8 cm on 07/14/2024 and 2.2 x 2.0 cm on 11/26/2024. There is mucosal thickening in the pharynx, consistent with changes of radiation therapy. The mastoid air cells are normal. There is moderate cervical spondylosis. IMPRESSION: 1. 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 Reviewed, dictated and finalized at location E.
--- OUTSIDE RECORDS SUMMARY | 2025-04-24 13:19 | XMS_ITS | Data Portability ---
Author Organization [facility] [employer], Main Office Address [address] [place] [address] Care Team Providers Care Exterior Interior Specialist Name Role Phone GOGO IVEY Primary Care Provider Assessment Encounter Date Assessment Date Assessment LastModified by Organization Details LastModified Time 06/28/2024 06/28/2024 06/29/2024: VIT D 16 PSA 0.73 Gluc 102, TP 5.6, Glob 1.7 LDL 112 Not available 07/15/2024 18:40:24 11/02/2024 11/02/2024 06/29/2024: VIT D 16 PSA 0.73 Gluc 102, TP 5.6, Glob 1.7 LDL 112 Not available 11/02/2024 11:34:04 02/13/2025 02/13/2025 06/29/2024: VIT D 16 PSA 0.73 Gluc 102, TP 5.6, Glob 1.7 LDL 112 01/30/2025: TG 189, LDL 122 H/H 10.3/32.8, MCV 106.1 PSA 0.94 Not available 02/13/2025 16:17:43 Plan of Treatment Reminders Order Date Submit Date Provider Last Modified By Organization Details Last Modified Time Details Appointments Any 15 2024 03:30P M Gogo garcias MD Not available Not available Not available Lab PSA, total, serum or plasma 2024 025 [facility] (Lab), [address] [place], [address], 02/14/2025 15:31:45 lipid panel, serum [address] (Lab), [address] [place], [address], 02/14/2025 15:31:44 CBC w/ auto diff [address] (Lab), [address] [place], [address], 02/14/2025 15:31:44 CMP, serum or plasma [address] (Lab), [address] [place], [address], 02/14/2025 15:31:44 TSH, serum or plasma [address] (Lab), [address] [place], [address], 02/14/2025 15:31:44 vitamin D, 25-hydrox y, total, serum [address] (Lab), [address] [place], [address], 02/14/2025 15:31:45 lipid panel, serum 2024 025 JONA [facility] (Lab), [address] [place], [address], 12/30/2024 15:51:45 CBC w/ auto diff 2024 025 [email or web address] [facility] (Lab), [address] [place], [address], 11/10/2024 09:11:07 CMP, serum or plasma 2024 025 [email or web address] [facility] (Lab), [address] [place], [address], 11/10/2024 09:11:24 TSH, serum or plasma [address] (Lab), [address] [place], [address], 11/10/2024 09:11:35 PSA, total, serum or plasma [address] (Lab), [address] [place], [address], 11/10/2024 09:11:53 vitamin D, 25-hydrox y, total, serum [address] (Lab), [address] [place], [address], 11/10/2024 09:11:43 PSA, total, serum or plasma 2023 024 [facility] (Lab), [address] [place], [address], 06/30/2024 11:31:50 lipid panel, serum 2023 024 [facility] (Lab), [address] [place], [address], 06/30/2024 11:31:49 CBC w/ auto diff 2023 024 [facility] (Lab), [address] [place], [address], 06/30/2024 11:31:50 CMP, serum or plasma 2023 024 [facility] (Lab), [address] [place], [address], 06/30/2024 11:31:49 TSH, serum or plasma 2023 024 [facility] (Lab), [address] [place], [address], 06/30/2024 11:31:50 vitamin D, 25-hydrox y, total, serum 2023 024 [facility] (Lab), [address] [place], [address], 06/30/2024 11:31:51 Referral otolaryng ologist referral - Please call patient to schedule an appointme nt. Thank you. 2024 025 [facility] Randy Morales, [address] [facility], [place], [address], 02/16/2025 10:35:18 dermatolo gist referral - Please call patient to schedule an appointme nt. Thank you. 2024 025 [facility], [facility], [address] [place] [address], [address], 02/16/2025 10:34:01 dermatolo gist referral - Please call patient to schedule an appointme nt. Thank you. 2024 [address] [place] [address] [facility], [address] [place] [address], [address], 02/07/2025 08:40:01 otolaryng ologist referral - Please call patient to schedule. 2023 024 [email or web address] Kyle Kay MD, [address], [place], [address], 02/16/2025 09:51:53 oncologis t referral - Please call patient to schedule. 2023 025 JONA Royal MD, [address], [place], [address], 08/24/2024 18:36:02 dermatolo gist referral - Please call patient to schedule. 2023 024 [email or web address] [facility] [place], [address] [place], [address], 02/14/2025 08:24:25 Procedures colonosco py screening (PROC) - Please call patient to schedule an appointme nt. Thank you. 2024 025 ELIZABETH Walsh MD, [address] [facility] [address], [place], [address], 02/16/2025 10:19:52 colonosco py screening (PROC) - Please call patient to schedule an appointme nt. Thank you. 2024 025 hrushingCheryle Walsh MD, [address] [place] [address] [address], [place], [address], 02/07/2025 08:52:54 colonosco py screening (PROC) - Please call patient to schedule. 2023 024 hrushingCheryle Walsh MD, [address] [facility] [address], [place], [address], 02/15/2025 09:08:41 Surgeries None recorded. Imaging US, neck, soft tissue - Please call patient to schedule. 2023 024 [facility], [address], [place], [address], 07/01/2024 18:27:28 Medication Orders pantopraz ole 40 mg tablet,de layed release 2024 025 [email or web address] [facility] [id number] [facility], [address] [place], [address], 11/02/2024 12:58:42 Patient TargetsNo targets recorded. Patient Instructions Encounter Date Encounter Id Patient Instructions Last Modified By Organization Details Last Modified Time 08/04/2024 [id number] to get things going he will undergo laryngoscopy and biopsy [facility] 08/04/2024 14:42:06 Reason for Referral Cyber Engineer Referral for S kin lesion Please call patient to schedule. Referring Physician: Gogo Ivey Internal Medicine, Encounter Date: 06/28/2024 Water Taxi Operator Referral fo r Mass of tongue Please call patient to schedule. Referring Physician: Gogo Ivey Internal Medicine, Encounter Date: 06/28/2024 Please call patient to sched ule. Referring Physician: Gogo Ivey Internal Medicine, Encounter Date: 06/28/2024 Cyber Engineer Referral for S kin lesion Please call patient to schedule an appointment. Thank you. Referring Physician: Gogo Ivey Internal Medicine, Encounter Date: 11/02/2024 Cyber Engineer Referral for S kin lesion Please call patient to schedule an appointment. Thank you. Referring Physician: Gogo Ivey Internal Medicine, Encounter Date: 02/13/2025 Water Taxi Operator Referral fo r Mass of tongue Please call patient to schedule an appointment. Thank you. Referring Physician: Gogo Ivey Internal Medicine, Encounter Date: 02/13/2025 Results Created Date Observation Date Name Description Value Unit Range Abnormal Flag Note LastModifiedBy Organization Detail LastModifiedTime 08/15/19 25 08/19/2024 PATHO LOGY SERVI CE pathserv SEE COMMEN T See separ ate patho logy repor t. Not Available [facility] ([facility]) [address] [place], [address], 08/19/2024 12:30:09 07/01/20 24 07/01/2024 US, neck, soft tissu e No observ ation record ed. [facility] [address], [place], [address], 07/01/2024 18:27:28 07/14/20 24 07/14/2024 CT, neck, soft tissu e, w/ contr ast No observ ation record ed. [address], [place], [address], 07/14/2024 17:31:46 08/29/19 25 08/29/2024 PET-C T, whole body scan No observ ation record ed. [email or web address] [facility] [address] [place] [address], [address], 08/29/2024 16:28:37 09/09/19 25 09/09/2024 PET-C T, whole body scan No observ ation record ed. [facility] [address] [place], [address], 09/09/2024 11:57:46 11/28/19 25 11/27/2024 imagi ng/di agnos tic resul t No observ ation record ed. [address], [place], [address], 11/27/2024 14:57:57 11/29/19 25 11/28/2024 imagi ng/di agnos tic resul t No observ ation record ed. [address], [place], [address], 11/28/2024 11:35:21 Result Notes None recorded. Problems Name Problem SNOMED Code Status Onset Date Resolution Date Notes Provider Name and Address Organization Details Recorded Time Vitamin D deficiency 68553590 Active 2023 Gogo garcias MD [address], [address], [place], [address], [employer] 4 14:13:49 Cervical lymphadenopath y 524205569 Active 2023 Gogo garcias MD [address], [address], [place], [address], [employer] 4 15:22:38 Hyperlipidemia 81943158 Active 2023 Jayleen Bautista JOSE F null, [facility] [employer] [facility] 4 12:36:51 Neck pain 04897306 Active 2023 Jayleen Bautista JOSE F null, [facility] 4 16:00:17 Mass of tongue 167854764 Active 2023 Gogo garcias MD [address], [address], [place], [address], [facility] 4 18:35:52 Skin lesion 54706510 Active 2023 Gogo garcias MD [address], [address], [place], [address], [facility] [employer] [facility] 4 12:46:31 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 Procedures Surgical History Date Name Laterality Status Provider Name and Address Organization Details Recorded Time Appendectomy completed JERE Oh [facility] 06/28/2024 14:34:54 Laryngoscopy with biopsy completed Kendra Lackey RN [facility] 08/22/2024 08:49:39 Imaging Results None recorded. Procedure [...] Not Available Not Available No t Available prednisone 20 mg tablet TAKE 2 TABLETS BY MOUTH DAILY FOR 3 DAYS 02/13 completed Not Available Not Available Not Available acetaminoph en 300 mg-codeine 30 mg tablet TAKE 1 TAB BY MOUTH EVERY 6 HOURS. NO DRIVING ON THIS MED. NOT W/ADDITIO NAL TYLENOL. IBUPROFEN OKAY. 02/13 completed Not Available Not Available Not Available ondansetron 8 mg disintegrat ing tablet [...] TAKE 1 TABLET BY MOUTH EVERY DAY 02/13 completed Not Available Not Available Not Available Vitamin B12 active Not Available Not A vailable Not Available cholecalcif cesar (vitamin D3) 1,250 mcg (50,000 unit) capsule TAKE 1 CAPSULE BY MOUTH ONE TIME PER WEEK 11/02 completed Not Available Not Available Not Available Vitals Date Recorded Body height Body mass index (BMI) Body weight Body temperature Provider Name and Address Organization Details Last Updated DateTime 08/04/2024 177.8 cm 29.8 kg/m2 81692.78 g 97.6 [degF] Kendra Lackey RN [facility] [employer] 08/04/2024 14:07:39 Date Recorded Body height Body mass index (BMI) Body weight Body temperature Provider Name and Address Organization Details Last Updated DateTime 08/22/2024 177.8 cm 29.4 kg/m2 68463.44 g 97.9 [degF] Kendra Lackey RN [facility] [employer] 08/22/2024 10:43:07 Date Recorded Body height Body mass index (BMI) Body weight Body temperature Heart rate Systolic And Diastolic Provider Name and Address Organization Details Last Updated DateTime 04/09/202 5 177.8 cm 28 kg/m2 32699.5 1 g 97.1 [degF] 72 /min 114/80 mm[Hg] JERE Oh [employer] 5 11:21:47 Date Recorded Body height Body mass index (BMI) Body weight Body temperature Heart rate Oxygen saturation Oxygen saturation in Arterial blood by Pulse oximetry Pain severity - 0-10 verbal numeric rating [Score] - Reported Systolic And Diastolic Provider Name and Address Organization Details Last Updated DateTime 5 177.8 cm 26.1 kg/m2 83810.8 1 g 97.4 [degF] 65 /min 100 % 100 % 0 110/80 mm[Hg] Mayuri Sanford MA [employer] 5 15:40:15 Date Recorded Body weight Body mass index (BMI) Body height Body temperature Heart rate Systolic And Diastolic Provider Name and Address Organization Details Last Updated DateTime 4 39467.2 1 g 29.8 kg/m2 177.8 cm 98.1 [degF] 78 /min 110/70 mm[Hg] JERE Oh [employer] 4 14:37:02 Social History Question Answer Notes LastModified by Organizat ion Details LastModified Time Tobacco Smoking Status Never Smoker JERE Oh [facility] [employer] [facility] [employer] 06/28/2024 14:33:04 Do You Have An Advance [...] Or The Highest Degree You Have Received? [id number] Information not available 06/28/2024 What Is The Fluoride Status Of Your Home? Unknown Information not available 06/28/2024 Are There Any Guns Present In Your Home? Yes Information not available 06/28/2024 Where Do You Live? Trailer Inform ation not available 06/28/2024 Do You Have A Medical Power Of Video Technician? No Information not available 06/28/2024 What Was The Date Of Your Most Recent Tobacco Screening? 02/13/2025 [email or web address] Information not available 02/13/2025 Do You Have Any Pets? Yes Information [...] anxious, or unable to sleep at night)? [id number] Information not available 06/28/2024 Family History Relationship Description Onset Age of this Age Resolved Age Notes LastModified by Organization Details LastModified Time Father Malignant tumor of colon with METS to prosta te Not available 06/28/2024 14:30:57 Paternal Grandfather Myocardial infarction Not available 06/28 14:31:14 Paternal Grandmother Myocardial infarction Not available 06/28 14:31:14 Notes:NO ENT Medical History Condition Response CHEMOTHERAPY / RADIATION Y CANCER: SPECIFY Y Immunizations Vaccine Type Date Status Note Provider Zak e and Address Organization Details Recorded Time zoster recombinant 07/17/2024 completed JERE Oh, [employer] 07/28/2024 16:07:28 zoster recombinant 09/20/2024 completed JERE Oh, [employer] 11/02/2024 11:18:36 Influenza, split virus, trivalent, PF 06/28/2024 completed Gogo Ivey MD [address] [facility] [facility] [address], [place], [address], [facility] Dónde [facility] [employer] 07/15/2024 18:38:30 Past Encounters Encounter ID Performer Location Encounter Start Date Encounter Closed Date Diagnosis/Indication Diagnosis SNOMED-CT Code Diagnosis ICD10 Code Diagnosis IMO Codes Diagnosis Note [id number] Gogo forte MD [facility] [address] [facility], [facility] [address] [place] [address] 06/28/2024 14:03:05 06/28/2024 15:30:34 Screening - NAD 928173278 Z13.9 C-scope; Get this if not done Get yearly flu shot, get tdap if not doneCan do Shingrix vaccineCan do COVID 19 boostersCa n do RSV vaccine RTC in 3 months, do labs, ER if worse, he did verbalize his understand ing of the above Screening for malignant neoplasm of colon 843053559 Z12.11 Hyperlipid emia screening 513714504 Z13.220 Addendum 07/15/2024 :Get on statin, case sent Vitamin D deficiency 347 17484 E55.9 Addendum 07/15/2024 :Get on vit d weekly and repeat the vit d, case sent Screening for malignant neoplasm of prostate 064513781 Z12.5 Skin lesion 34710290 L98 .9 Cervical lymphadenopathy 297058641 R59.0 Addendum: 07/15/2024 :US neck 07/01/2024 CT neck 07/14/2024 : Mass notedCase sent, needs to see oncologist IMANI Administra tion of influenza vaccine 28277090 Z23 Mass of tongue 256842888 R22.0 Addendum: 07/15/2024 :See CT neck 07/14/2024 , needs to see ENT and oncology [id number] Kyle Kay MD [facility] [place] [address] [place] [address] 08/04/2024 13:50:33 08/09/2024 13:55:37 Primary malignant neoplasm of base of tongue 14754963 C01 [id number] Kyle Kay MD [facility] E[facility] [place] [address] [place] [address] 08/22/2024 10:06:08 08/23/2024 10:53:37 Primary malignant neoplasm of base of tongue 80227079 C01 [id number] Gogo forte MD [facility] Primary Care [facility] [address] [facility] [address] [place] [address] 11/02/2024 11:06:55 11/02/2024 12:16:40 Screening - NAD 812885532 Z13.9 C-scope; Get this if not done Get yearly flu shot, get tdap if not doneCan do Shingrix vaccineCan do COVID 19 boostersCa n do RSV vaccine RTC in 3 months, do labs, ER if worse, he did verbalize his understand ing of the above Screening for malignant neoplasm of colon 818356347 Z12.11 Hyperlipid emia screening 716461594 Z13.220 Addendum 07/15/2024 :Get on statin, case sent, but today 11/02/2024 not taking Vitamin D deficiency 347 23679 E55.9 Addendum 07/15/2024 :Get on vit d weekly and repeat the vit d, case sent Screening for malignant neoplasm of prostate 981256149 Z12.5 Skin lesion 68088122 L98 .9 Mass of tongue 511777703 R22.[address] neck 07/14/2024 , needs to see ENT and oncology 08/19/2024 : Bx Invasive squamous cell carcinoma Dr Mike ET CT 09/09/2024 Dr Royal 09/09/2024 , to get chemoradia tiJamilah Royal 10/27/2024 Gastroesop hageal reflux disease without esophagitis 279484541 K21.9 Has noted acid reflux symptoms since starting his chemo and radiationS tart on pantoprazo le as needed [id number] Gogo forte MD [facility] [address] [place] [address] 02/13/2025 15:27:31 02/13/2025 16:41:52 Screening - NAD 106910402 Z13.9 C-scope; Get this if not done Get yearly flu shot, get tdap if not doneCan do Shingrix vaccineCan do COVID 19 boostersCa n do RSV vaccine RTC in 3 months, do labs, ER if worse, he did verbalize his understand ing of the above Screening for malignant neoplasm of colon 786947022 Z12.11 Hyperlipid emia screening 382866813 Z13.220 Addendum 07/15/2024 :Get on statin, case sent, but today 11/02/2024 not taking OV 02/13/2025 : Get labs Vitamin D deficiency 347 47902 E55.9 Addendum 07/15/2024 :Get on vit d weekly and repeat the vit d, case sent Screening for malignant neoplasm of prostate 374202289 Z12.5 Skin lesion 00596624 L98 .9 Mass of tongue 657314527 R22.[address] neck 07/14/2024 , needs to see ENT and oncology 08/19/2024 : Bx Invasive squamous cell carcinoma Dr Mike ET CT 09/09/2024 Dr Royal 09/09/2024 , to get chemoradia tionDr Genny 10/27/2024 Dr Royal 01/31/2025 , is to take vit b12 Get a referral to ENT Dr Morales as Dr Kay has not contacted him to get a 'scope' that was ordered by Dr Royal Gastroesop hageal reflux disease without esophagitis 133184208 K21.9 Has noted acid reflux symptoms since starting his chemo and radiationO n pantoprazo le as needed Health Concerns Section Related Observation LastModified by Organization Detai ls LastModified Time None Recorded Concern Status LastModified by Organization Details LastModified Time None Recorded Advance Directives Directive N: Payers Insurance Date Sequence Insurance Name Policy Number Policy Sinclair Covered Member ID Sinclair Member ID Guarantor Name 02/21/2025 2 [facility] [id number] Marco Green [id number] Marco Green 02/21/2025 1 [facility] (MEDICARE REPLACEMENT/ ADVANTAGE - HMO) [id number] Marco Green [id number] Marco Green Notes Date Note Type Note Provider Name and Address Organization Details Recorded Time 06/28/2024 text/html OV 06/28/2024:Here to establish care Present Hx:C/o lymph nodes in neck, and to get labs MD Mel Edwards, [address], [place], [address], [employer] 07/15/2024 18:54:50 08/04/2024 text/html this patient developed left neck pain for months ago which now radiates to his throat and ear. He is a never smoker and has no family history of cancer. He did have an ultrasound which demonstrated lymphadenopathy followed by a CT scan which demonstrated a 2.5 cm left tongue base lesion with adenopathy. MD [address], [place], [address], [employer] 08/04/2024 14:42:32 08/22/2024 text/html The pathology report indicated invasive squamous cell carcinoma as expected. We will schedule his PET-CT through [facility] and he has an appointment to see a medical oncologist at [facility] this week. MD [address], [place], [address], [employer] 08/22/2024 11:00:42 11/02/2024 text/html OV 06/28/2024:Here to establish care Present Hx:C/o lymph nodes in neck, and to get labs OV 11/02/2024: Here for his f/u apt, he did do the labs, here with his , wants to discuss his GERD like symptoms and get a medication for this Gogo Ivey MD [address] [facility] [address], [place], [address], [employer] 11/02/2024 13:02:37 02/13/2025 text/html OV 06/28/2024:Here to establish care Present Hx:C/o lymph nodes in neck, and to get labs OV 11/02/2024: Here for his f/u apt, he did do the labs, here with his , wants to discuss his GERD like symptoms and get a medication for this OV 02/13/2025: Here for his f/u apt, he is here with his , he did see Dr Genny Ivey MD [address], [facility] [address], [place], [address], [employer] [facility] [employer] [facility] 02/13/2025 16:40:35
--- OUTSIDE RECORDS SUMMARY | 2025-04-24 13:19 | XMS_ITS | Patient Health Record ---
Author Organization [facility] Address [address] [place] [address] Care Team Providers Care Fingerprint Classifier Name Role Phone Tanner Madison MD Primary Care Provider Unavail able Allergies No Known Allergies Reason For Referral No Information Medications Medication SIG (Take, Route, Fr equency, Duration) Notes Start Date End Date Status Omeprazole 20 MG 1 capsule Orally NIG HT BEFORE PROCEDURE AND MORNING OF PROCEDURE WITH A SMALL SIP OF WATER; Duration: 2 days Active Social History Tobacco Use: Social History Observation Description Date Details (start date - stop date) Never Smoker NA - NA Tobacco Use/Smoking Question Answer Notes Are you a nonsmoker Problems Problem Type SNOMED Code ICD Code Onset Dates Problem Status W/U Status Risk Notes Problem Lumbosacral spondylosis without myelopathy (35088104) Spondylosis without myelopathy or radiculopathy, lumbar region (M47.816) Active confirmed Problem Lumbosacral spondylosis without myelopathy (disorder) (48421486) Spondylosis without myelopathy or radiculopathy, lumbosacral region (M47.817) Active confirmed Problem Cervical spondylosis without myelopathy (671588596) Other spondylosis, cervical region (M47.892) Active confirmed Problem Cervical spondylosis without myelopathy (929522160) Other spondylosis, cervicothoracic region (M47.893) Active confirmed Problem Thoracic spondylosis without myelopathy (726507466) Other spondylosis, thoracic region (M47.894) Active confirmed Problem Thoracic spondylosis without myelopathy (204178013) Other spondylosis, thoracolumbar region (M47.895) Active confirmed Problem Spinal stenosis in cervical region (42994699) 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 (M99.61) Active confirmed Problem Spinal stenosis of lumbar region (27909739) Spinal stenosis, lumbar region without neurogenic claudication (M48.061) Active confirmed Plan Of Treatment No Information Insurance Providers Payer Name Payer Address Payer Phone Subscriber Number Group Number Insured Name Patient Relationship to Insured Coverage Start Date Coverage End Date BCBS OUT OF STATE [address] [place] [address] [id number] EUGENIA SMITH Self - patient is the insured Medical (General) History Medical History History ICD Code acid reflux/gerd arthritis Surgical History Surgery Date(Month/Year) appendix 1980
--- OUTSIDE RECORDS SUMMARY | 2025-04-24 13:19 | XMS_ITS | Clinical Summary ---
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
--- OUTSIDE RECORDS SUMMARY | 2025-04-24 13:19 | XMS_ITS | Clinical Summary ---
Author Organization [facility] Address [address] [place] [address] Care Team Providers Care Senior Auditor Name Role Phone Gogo Ivey MD Primary Care Provider Allergies No known active allergies Medications HYDROcodone-reinaldo taminophen (NORCO) 5-325 mg tabletIndicatio ns:Tongue cancer Take 1 Tablet by mouth every 4 [...] Encounters Date Type Department Care Team Description 04/03/2025 Orders Only [facility] Oncology and Hematology - [address] [place] [address] Flex Royal MD Tongue cancer ([facility]) 03/20/2025 Orders Only [facility] Oncology and Hematology - [address] [place] [phone] Flex Royal MD Tongue cancer ([facility]) 03/06/2025 Orders Only [facility] Oncology and Hematology - [id number] Flex Royal MD Tongue cancer ([facility]/H[facility]) 02/20/2025 Orders Only [facility] Oncology and Hematology - [id number] Flex Royal MD Tongue cancer ([facility]/H[facility]) 02/06/2025 Orders Only [facility] Oncology and Hematology - Mervin [address] [place] [phone] Flex Royal MD Tongue cancer ([facility]) 01/31/2025 4:30 PM CDT Telephone Check Up [facility] Oncology and Hematology - [address] [place] [phone] Flex Royal MD Anemia, chronic disease (Primary Dx) 01/25/2025 Orders Only [facility] Oncology and Hematology - [address] [place] [phone] Flex Royal MD 01/24/2025 Orders Only [facility] Oncology and Hematology - [address] [place] [phone] Flex Royal MD 01/23/2025 2:30 PM CDT Office Visit [facility] Oncology and Hematology - [address]erv[address] [place] [phone] Flex Royal MD Anemia, chronic disease (Primary Dx); Tongue cancer ([facility]/HCC) from Last 3 Months Family History Medical [...] on file 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 Gender Identity Not on file Sexual Orientation Not on file Last Filed Vital Signs Vital Sign Reading Time Taken Comments Blood Pressure 132/89 01/23/2025 1:47 PM CDT Pulse 83 01/23/2025 1:47 PM CDT Temperature 36.7 C (98 F) 01/23/2025 1:47 PM CDT Respiratory Rate 15 01/23/2025 1:47 PM CDT Oxygen Saturation 95% 01/23/2025 1:47 PM CDT Inhaled Oxygen Concentration - - Weight 82 kg (180 lb 12.8 oz) 01/23/2025 1:47 PM CDT Height 177.8 cm (5' 10) 08/24/2024 2:03 PM NURSE RECEPTIONIST Body Mass Index 25.94 08/24/2024 2:03 PM NURSE RECEPTIONIST Plan of Treatment Health Maintenance Due Date Last Done Comments Pre-Diabetes and Diabetes Screening 1960 DTAP/TDAP/TD VACCINES (1 - Tdap) 11/04/1978 COLORECTAL SCREENING 11/04/2004 Colorectal Cancer Screening 11/04/2004 FIT-DNA Q 3 years 11/04/2004 FIT/FOBT Q 1 year 11/04/2004 Flex Sig/CT Colonography Q 5 years 11/04/2004 PNEUMOCOCCAL VACCINE 50+ YEA RS (1 of 1 - PCV) 11/04/2009 INFLUENZA VACCINE (#1) 2025 06/28/2024 RSV VACCINE (60+ or ) (1 - 1-dose 75+ series) 11/04/2034 ZOSTER VACCINE Completed 09/20/2024, 07/17/2024 Procedures Procedure Name Priority Date/Time Associated Diagnosis Comments CBC WITH DIFFERENTIAL Routine 01/23/2025 12:52 PM CDT COMPREHENSIVE METABOLIC PANEL Routine 01/23/2025 10:24 AM CDT BASIC METABOLIC PANEL Routine 01/23/2025 10:10 AM CDT IRON, TIBC, AND PERCENT SATURATION Routine 01/23/2025 7:56 AM CDT from Last 3 Months Results * CBC WITH DIFFERENTIAL (01/23/2025 12:52 PM CDT) Blood us Flex Royal MD HEMATOLOGY ORDERABLES Final Res ult * COMPREHENSIVE METABOLIC PANEL (01/23/2025 10:24 AM CDT) Blood Flex Royal MD CHEMISTRY ORDERABLES Final Resu lt * BASIC METABOLIC PANEL (01/23/2025 10:10 AM CDT) Blood Result [facility] Flex Royal MD CHEMISTRY ORDERABLES Final Resu lt * IRON, TIBC, AND PERCENT SATURATION (01/23/2025 7:56 AM CDT) Blood Result [facility] Flex Royal MD CHEMISTRY ORDERABLES Final Resu lt from Last 3 Months Insurance Care Teams Senior Auditor Relationship Specialty Start Date End Date Gogo Ivey MD [address] [place] [address] Dr [address] [place] [phone] PCP - General Internal Medicine 08/24/24
[2025-04-24 13:27] LABS: Estimated Glomerular Filt Rate > 60
== END 2025-04-24 13:00 | disposition home or self-care (01) ==
PROVIDERS: PCP Internal Medicine; Visit Provider Internal Medicine Hematology & Oncology
DX: R22.0 Localized swelling, mass and lump, head (principal); C02.9 Malignant neoplasm of tongue, unspecified
CPT/HCPCS: 70491; Q9967